=== PATIENT | male | born 1965 | race Caucasian/White ===

== ENCOUNTER 2017-06-05 10:06 | Inpatient (IN) | payer MEDICAID ==
[~2017-06-05] VITALS: Ht 162.6 cm; Wt 49.9 kg
[2017-06-05] MEDS ORDERED: DEXT 5% /NACL 0.9% 1,000 ML IV SCH ×2 (10:25→13:50)
[2017-06-05] MEDS ORDERED: MORPHINE SULFATE 2 MG/ML SYR IVP PRN ×2 (10:25→13:50)
[2017-06-05] MEDS ORDERED: MORPHINE SULFATE 4 MG/ML SYR IVP PRN (10:25)
[2017-06-05] MEDS ORDERED: ONDANSETRON 4 MG/2 ML VIAL IVP PRN ×2 (10:25→13:50)
--- NOTE | 2017-06-05 13:30 | NUR ---
PATIENT ARRIVED ON UNIT. PATIENT IS AAOX4 AND SHOWS NO S/S OF ACUTE DISTRESS ON ROOM AIR. PATIENT DENIES PAIN, NOTED SUPRAPUBIC TUBE DRAINING CLOUDY STRAW YELLOW URINE, PRESSURE ULCER AT RIGHT BUTTOCK, BILATERAL FEET WITH 2+ PITTING EDEMA. PATIENT WAS A DIRECT ADMIT, HX WAS TAKEN FROM PATIENT. PATIENT WAS EXPLAINED POC FOR TODAY AND HE VERBALIZED UNDERSTANDING. BED IN LOW POSITION WITH CALL LIGHT WITHIN REACH.
[2017-06-05] MEDS ORDERED: OMEP20TC10 PO (14:29)
[2017-06-05] MEDS ORDERED: ASCO500T45 PO (14:29)
[2017-06-05] MEDS ORDERED: TRAZ-286 PO (14:29)
[2017-06-05] MEDS ORDERED: FISH10005 PO (14:29)
[2017-06-05] MEDS ORDERED: ACET-8386 PO (14:29)
[2017-06-05] MEDS ORDERED: LACT10SO1 PO (14:29)
[2017-06-05] MEDS ORDERED: TRAM50TA1 PO (14:29)
[2017-06-05] MEDS ORDERED: ONDA4TAB PO (14:29)
[2017-06-05] MEDS ORDERED: ALBU0.0912 IH (14:29)
[2017-06-05] MEDS ORDERED: ZINC220C12 PO (14:29)
[2017-06-05 14:51] VITALS: BP 132/96
[2017-06-05] MEDS ORDERED: BOWEL EVACUANT DRINK 4,000 ML PDS PO SCH (15:00)
[2017-06-05] MEDS ORDERED: HYDROcodone/APAP 5/325 MG 1 TAB TAB PO PRN (15:05)
[2017-06-05] MEDS ORDERED: ALBUTEROL HFA MDI 90 MCG/ACTUATION 8 GM INH PRN (15:05)
[2017-06-05] MEDS ORDERED: traMADol 50 MG TAB PO PRN (15:05)
[2017-06-05] MEDS ORDERED: ALBUTEROL 0.083% 2.5 MG/3 ML NEBU INH PRN (15:20)
--- NOTE | 2017-06-05 16:00 | NUR ---
ADMINISTERED SCHEDULED MEDICATIONS. YISEL ATTEMPTED NEW IV ON THE LEFT FOREARM SUCCESSFULLY. IV SL. ALL NEEDS MET AT THIS TIME. BED IN LOW POSITION WITH CALL LIGHT WITHIN REACH.
[2017-06-05] MEDS ORDERED: NON-FORMULARY ITEM (Omeprazole 40 MG) PO SCH (16:30)
--- NOTE | 2017-06-05 17:33 | NUR ---
PATIENT C/O NAUSEA, ADMINISTERED ZOFRAN 4 MG IVP. PATIENTS NEEDS MET AT THIS TIME.
--- NOTE | 2017-06-05 19:30 | NUR ---
GAVE REPORT AT BEDSIDE TO NIGHT NURSE. PATIENT ENDORSED IN STABLE CONDITION.
--- NOTE | 2017-06-05 19:40 | NUR ---
RECEIVED REPORT FROM AM NURSE. PT RESTING IN BED, AOX4, BEDBOUND, ABLE TO VERBALIZE NEEDS. PT C/O NAUSEA AND ABD DISCOMFORT FROM DRINKING GO-LYTELY, ZOFRAN IVP PRN IS NOT DUE YET, WILL NOTIFY . PT ENCOURAGED TO DRINK GO-LYTELY TOLERATED, PT VERBALIZED UNDERSTANDING. PT HAS SACRAL WOUND, DRESSING CLEAN DRY AND INTACT. SUPRAPUBIC CATH DRAINING STRAW YELLOW CLOUDY URINE WITH SEDIMENTS. BLE PITTING EDEMA NOTED. IV ACCESS ASYMPTOMATIC, PATENT AND INTACT. IVF INFUSING WELL. DISCUSSED AND REVIEWED PLAN OF CARE WITH PT, PT VERBALIZED UNDERSTANDING. ALL NEEDS MET. SAFETY MEASURES ENSURED. CALL LIGHT WITHIN REACH. Addendum: 06/06/17 at 0131 by Javon Dominique RN R BUTTOCKS WOUND
[2017-06-05 20:00] VITALS: BP 114/87
[2017-06-05] MEDS: ONDANSETRON 4 MG/2 ML VIAL IVP PRN (20:14)
--- NOTE | 2017-06-05 20:15 | NUR ---
CALLED DR HESS, DISCUSSED PT DX SCREENING FOR MALIGNANT NEOP-COLON, PT CURRENTLY SNF IN [facility], C/O NAUSEA DESPITE ZOFRAN IVP Q6H PRN 2HRS AGO, REPORTED THAT PT HAD 1 LARGE SOLID BM AT THIS TIME. ORDERS RECEIVED TO CHANGE TO ZOFRAN IVP 4MG PRN Q4H TO START NOW. PT REPORTS SLIGHT RELIEF AFTER BM AND EMESIS. ADMINISTERED ZOFRAN IVP PRN ORDERED WITH EDUCATION. ADMINISTERED REMAINING DUE MED WITH EDUCATION. PT VERBALIZED UNDERSTANDING, TOLERATED MEDS WELL. ALL NEEDS MET. SAFETY MEASURES ENSURED. CALL LIGHT WITHIN REACH. WILL CONTINUE TO MONITOR.
[2017-06-05] MEDS ORDERED: traZODone 50 MG TAB PO SCH (21:00)
--- NOTE | 2017-06-05 21:45 | NUR ---
PT HAD COPIOUS AMOUNTS OF BROWN LIQUID STOOL, BEDLINENS CHANGED. PT CLEANED, TURNED AND REPOSITIONED, OFFLOADED PRESSURE AREAS WITH MONOMER PURIFICATION OPERATOR. PT ENCOURAGED TO DRINK MORE GO-LYTELY, PT C/O NAUSEA BUT ABLE TO TOLERATE SLOWLY, WILL MONITOR AND CONTINUE TO ENCOURAGE PT. ALL NEEDS MET. IVF INFUSING WELL. SAFETY MEASURES ENSURED. CALL LIGHT WITHIN REACH.
[2017-06-06] VITALS: BP 129/73
[2017-06-06] MEDS: ONDANSETRON 4 MG/2 ML VIAL IVP PRN (00:15)
--- NOTE | 2017-06-06 00:15 | NUR ---
PT ABLE TO FINISH GO-LYTELY BEFORE MIDNIGHT. PT C/O ABD PAIN AND DISCOMFORT, SEE PAIN ASSESSMENT, ADMINISTERED NORCO PO PRN WITH EDUCATION. PT C/O NAUSEA, ADMINISTERED ZOFRAN IVP PRN WITH EDUCATION. PT VERBALIZED UNDERSTANDING. PT HAD COPIOUS AMOUNT OF LIQUID STOOL. BEDLINENS CHANGED, PT CLEANED, TURNED AND REPOSITIONED WITH EXTRACTOR PLANT OPERATOR, PT TOLERATED WELL. ALL NEEDS MET. SAFETY MEASURES ENSURED. CALL LIGHT WITHIN REACH. WILL CONTINUE TO MONITOR.
--- NOTE | 2017-06-06 04:00 | NUR ---
PT SLEEPING COMFORTABLY, NO S/S OF ACUTE DISTRESS. ALL NEEDS MET. SAFETY MEASURES ENSURED. CALL LIGHT WITHIN REACH.
[2017-06-06] MEDS ORDERED: SODIUM PHOSPHATE 118 ML ENEM RC SCH (06:00)
--- NOTE | 2017-06-06 06:02 | NUR ---
PT HAD COPIOUS AMOUNT OF BM, PT CLEANED, TURNED AND REPOSITIONED BY CNAs. ADMINISTERED DUE MED FLEET ENEMA AT THIS TIME. HELD DUE MED PROTONIX PO DUE TO PT NPO. PT TOLERATED WELL. ALL NEEDS MET. SAFETY MEASURES ENSURED. CALL LIGHT WITHIN REACH.
[2017-06-06] MEDS ORDERED: NON-FORMULARY ITEM (Omeprazole 40 MG) PO SCH (06:30)
[2017-06-06] MEDS ORDERED: PANTOPRAZOLE 40 MG TABEC PO SCH ×2 (06:30→09:00)
[2017-06-06] MEDS ORDERED: MIDAZOLAM 2 MG/2 ML VIAL ONE (07:09)
[2017-06-06] MEDS ORDERED: LIDOCAINE 2% 100 MG/5 ML UJET TP ONE (07:09)
[2017-06-06] MEDS ORDERED: fentaNYL 0.05 MG/ML VIAL ONE (07:09)
--- NOTE | 2017-06-06 07:15 | NUR ---
ENDORSED PLAN OF CARE TO AM NURSE. CONDITION STABLE.
--- NOTE | 2017-06-06 07:16 | NUR ---
RECEIVED REPORT FROM THE NIGHT NURSE. PT IS ASLEEP. PT HAD BOWEL CLEANSING PREP ALL LAST NIGHT AND MORNING. PT TO HAVE COLONOSCOPY THIS MORNING AT 0730. BM CLEAR. WILL LET HIM SLEEP UNTIL OR NURSES GET HERE.
--- NOTE | 2017-06-06 07:27 | NUR ---
2 O/R NURSES, ELIER AND JOSE L ARE HERE TO TAKE PT FOR COLONOSCOPY. PT IS STILL SLEEPING. PER NANOTECHNOLOGY ENGINEERING TECHNOLOGIST NURSE PT'S BM IS CLEAR. WILL AWAIT HIS RETURN.
--- NOTE | 2017-06-06 07:41 | NUR ---
PT OFF UNIT
[2017-06-06 08:00] VITALS: BP 118/79
[2017-06-06] MEDS ORDERED: LACTULOSE 20 GM/30 ML UDC PO SCH (09:00)
[2017-06-06] MEDS ORDERED: FISH OIL PO SCH (09:00)
[2017-06-06] MEDS ORDERED: FATTY ACIDS PO SCH (09:00)
[2017-06-06] MEDS ORDERED: ZINC SULF 220 MG CAP PO SCH (09:00)
[2017-06-06] MEDS ORDERED: ASCORBIC ACID 500 MG TAB PO SCH (09:00)
[2017-06-06] MEDS ORDERED: OMEGA PO SCH (09:00)
[2017-06-06] MEDS ORDERED: NON-FORMULARY ITEM (Lactulose 30 ML) PO SCH (09:00)
--- NOTE | 2017-06-06 09:00 | NUR ---
WOUND CONSULT DONE ON THIS OUTPATIENT 51 Y/O MALE, NO H&P AVAILABLE. PT IS AAX4, VERBALIZES NEEDS AND PT. ABLE TO TURN AND REPOSITION WITH ASSISTANCE OF ONE PERSON TO POSITIONING THE BLE. PT. HAS SUPRA PUBIC CATH. PATENT WITH MODERATE AMOUNT OF YELLOW URINE OUTPUT IN BSD BAG. MULTIPLE OLD HEALED SURGICAL SCARS TO BLE, ABDOMEN AND SPINAL AREAS. INITIAL PLAN OF CARE DISCUSSED WITH PRIMARY RN AND PT. PT VERBALIZES UNDERSTAND. INTEGUMENTARY: 1. RIGHT LOWER BUTTOCK 3X2X0.1 CM MOISTURE ASSOCIATE DERMATITIS(MAD) 2. SACRAL COCCYX BLANCHABLE REDNESS 3. LEFT AND RIGHT FEET DRY FLAKY SKIN RECOMMENDATION: 1. CLEANSE RIGHT LOWER BUTTOCK MAD WITH SOAP AND WATER, PAT DRY, APPLY Z-GUARD BID AND PRN IF SOILING 2. APPLY SKIN LOTION TO FEET DRYNESS AREA WITH BODY LOTION BID 3. TURN AND REPOSITION Q2H AND OFFLOAD SACRALCOCCYX AREA 4. KEEP SKIN DRY AND CLEAN AT ALL TIMES ABOVE RECOMMENDATIONS NOTIFY PRIMARY RN NO NEED FOR FOLLOW UP. PLEASE CONTACT WOUND CARE NURSE FOR ANY QUESTION.
--- NOTE | 2017-06-06 09:20 | NUR ---
PATIENT HAS BEEN SCREENED AND CATEGORIZED MODERATE NUTRITION RISK. PATIENT WILL BE SEEN WITHIN 3-5 DAYS OF ADMISSION. 06/07/17-06/09/[address]
--- NOTE | 2017-06-06 09:25 | NUR ---
ADMINISTERED MORNING MEDS. TOLERATED THEM WELL. LATE TRAY HERE. ONCE DONE WITH BREAKFAST AND TRANSPORT ARRANGED, HE CAN BE D/C BACK TO HIS HOME.
--- NOTE | 2017-06-06 10:58 | NUR ---
CALLED ACCESS AND ARRANGED TRANSPORTATION FOR PT FOR APPROX 1230. PT IS ALREADY DRESSED AND READY TO GO. WILL START D/C PROCESS.
--- NOTE | 2017-06-06 12:00 | NUR ---
GAVE D/C INSTRUCTIONS TO PT. PT VERBALIZED UNDERSTANDING. REMOVED IV, CANNULA INTACT AND NO BLEEDING NOTED. REMOVED ID BANDS. ALL PERSONAL BELONGINGS AT BEDSIDE. READY TO GO. JUST WAITING ON TRANSPORTATION. PER PT'S REQUEST, MOVED PT FROM BED TO CHAIR. PT TOLERATED WELL.
--- NOTE | 2017-06-06 12:24 | NUR ---
SAT PT IN HIS WHEELCHAIR, LUNCH TABLE IN FRONT. WAITING ON ACCESS RIDE. WILL CONTINUE TO MONITOR PT.
--- NOTE | 2017-06-06 12:30 | NUR ---
WALKED PT OUT TO THE ACCESS TRANSPORTATION. PT IN STABLE CONDITION. ALL PERSONAL BELONGINGS WITH PT.
--- NOTE | 2017-06-06 13:52 | NUR ---
CM NOTE PER SEWER REPAIRER CHUY, SEND REVIEWS TO [facility] FAX# [phone] AND TO [facility]. PER FAITH OF [facility] PH# [phone], THERE IS NO COUTURE ALTERATIONS DRESSMAKER ASSIGNED TO THE PATIENT YET BUT TO SEND REVIEWS TO [facility] FAX# [phone] REF# [id number]. INITIAL REVIEW FAXED TO [facility] [phone] PH# [phone] AND TO [facility] [phone] JEANCARL[facility] STARK PH# [phone].
== END 2017-06-06 12:30 | disposition home or self-care (01) | DRG 244 ==
LOC: UNDOADMIN 10:06 → MTU 10:06 → EDSTATUS 06-08 09:35
PROVIDERS: ADMIT Internal Medicine Gastroenterology; ATTEND Internal Medicine Gastroenterology
PROC: 0DJD8ZZ Inspection of Lower Intestinal Tract, Via Natural or Artificial Opening Endoscopic (ICD-10-PCS; principal; 2017-06-06 07:30)
DX: K57.30 Diverticulosis of large intestine without perforation or abscess without bleeding (principal); G80.9 Cerebral palsy, unspecified; K59.00 Constipation, unspecified
CPT/HCPCS: 87081; 93005; J2250; J2405; J3010; J7042

== ENCOUNTER 2018-03-25 21:18 | Inpatient (IN) | payer MEDICAID ==
[~2018-03-25] VITALS: Ht 162.6 cm; Wt 59.0 kg
[~2018-03-25 21:18] MED LIST: ACET-8386 PO; ALBU0.0912 IH; ASCO500T45 PO; FISH10005 PO; LACT10SO1 PO; OMEP20TC10 PO; ONDA4TAB PO; TRAM50TA1 PO; TRAZ-370 PO; ZINC220C12 PO
[2018-03-25 21:21] VITALS: BP 138/78
--- NOTE | 2018-03-25 21:41 | NUR ---
PT PAULO BLS. TAKEN TO BED 10
--- NOTE | 2018-03-25 21:45 | NUR ---
ER AT BEDSIDE
--- NOTE | 2018-03-25 21:45 | NUR ---
52/M BIBA FROM PT'S ASSISTED LIVING ARRANGED WITH A CAREGIVER. PER EMS, PT HAD BRIGHT RED STOOL FROM DIAPER. PT AOX4, GCS 15, BEDBOUND, RR EVEN AND UNLABORED. LUNG SOUNDS CLEAR BL. BS ACTIVE X4, ABD FIRM ROUND TENDER ON EPIGASTRIC AREA. PRESSURE ULCER NOTED ON R BUTTOCKS, SKIN TEAR NOTED ON L BUTTOCKS WITH MILD BRIGHT RED BLEEDING, OPEN WOUNDS NOTED ON PENIS AND SCROTUM WITH MILD BRIGHT RED BLEEDING. HX CEREBRAL PALSY, GASTRIC ULCER
[2018-03-25] MEDS ORDERED: NACL 0.9% 1,000 ML IV SCH (21:49)
[2018-03-25] MEDS ORDERED: FAMOTIDINE 20 MG/2 ML VIAL IVP ONE (21:50)
[2018-03-25] MEDS ORDERED: ONDANSETRON 4 MG/2 ML VIAL IVP ONE (21:50)
[2018-03-25 22:16] LABS: BASOPHILS # (AUTO) 0.1 K/uL (0.00-0.22); BASOPHILS % (AUTO) 1.2 % (0.0-2.0); EOSINOPHILS # (AUTO) 0.4 K/uL (0-0.4); EOSINOPHILS % (AUTO) 5.4 % (0.0-4.0); HEMATOCRIT 34.7 % (36-52); LYMPHOCYTES # (AUTO) 1.1 K/uL (2.0-11.5); LYMPHOCYTES % (AUTO) 13.6 % (20.5-51.1); MEAN CORPUSCULAR HEMOGLOBIN 29 pg (27-31); MEAN CORPUSCULAR HGB CONC 32 g/dL (33-37); MEAN CORPUSCULAR VOLUME 91.9 fL (80-94); MONOCYTES # (AUTO) 0.4 K/uL (0.8-1.0); MONOCYTES % (AUTO) 4.9 % (1.7-9.3); NEUTROPHILS # (AUTO) 6.1 K/uL (1.8-7.7); NEUTROPHILS % (AUTO) 74.9 % (42.2-75.2); PLATELET COUNT (AUTO) 366 K/uL (140-450); RED BLOOD CELL COUNT(AUTO) 3.78 MIL/uL (4.20-6.10); RED CELL DISTRIBUTION WIDTH 19.7 % (11.6-13.7); WHITE BLOOD COUNT (AUTO) 8.2 K/uL (4.8-10.8)
[2018-03-25 22:24] LABS: ANION GAP 14.1 (8-16); CARBON DIOXIDE 25.2 mmol/L (21-32); CREATININE 1.3 mg/dL (0.7-1.3); POTASSIUM 3.3 mmol/L (3.5-5.1)
[2018-03-25 22:31] LABS: ALBUMIN 3.5 g/dL (3.4-5.0); TOTAL BILIRUBIN 0.3 mg/dL (0.0-1.0)
[2018-03-25 22:44] LABS: APPEARANCE,URINE CLOUDY (CLEAR); COLOR,URINE YELLOW (YELLOW)
[2018-03-25 22:45] LABS: BILIRUBIN,URINE NEGATIVE (NEGATIVE); BLOOD, URINE 2+ (NEGATIVE); PH,URINE 7.5 (5.0-9.0); UGLUCOSE NEGATIVE (NEGATIVE)
[2018-03-25 22:46] LABS: LEUKOCYTE ESTERASE ,URINE 3+ (NEGATIVE); NITRITE, URINE POSITIVE (NEGATIVE)
[2018-03-25] MEDS ORDERED: cefTRIAXone 2,000 MG in DEXTROSE 5% 100 ML IV ONE (22:50)
[2018-03-25 23:01] LABS: RBC,URINE 11-20 (MOD) /HPF (0-5)
[2018-03-25 23:02] LABS: WBC,URINE TOO MANY TO COUNT /HPF (0-5)
[2018-03-25] MEDS ORDERED: cefTRIAXone 2,000 MG VIAL ONE (23:26)
[2018-03-25] MEDS ORDERED: VANCOMYCIN 1,000 MG in DEXTROSE 5% 250 ML IV ONE (23:50)
--- NOTE | 2018-03-26 | NUR ---
Patient appears to be resting comfortably in bed. Vital Signs within normal limits. Respirations even and unlabored.
[2018-03-26] MEDS ORDERED: VANCOMYCIN 1,000 MG VIAL ONE (00:15)
[2018-03-26] MEDS ORDERED: ONDANSETRON 4 MG/2 ML VIAL IVP ONE (02:15)
[2018-03-26] MEDS ORDERED: MORPHINE SULFATE 2 MG/ML SYR IVP ONE (02:15)
[2018-03-26] MEDS ORDERED: MORPHINE SULFATE 4 MG/ML SYR ONE (02:24)
--- NOTE | 2018-03-26 03:27 | NUR ---
ADMITTED PT FROM ER VIA [facility]. AAOX4. NO C/O PAIN OR SOB. PT IS BEDBOUND. IV TO LEFT WRIST #22G, SALINE LOCK. PT HAS SUPRAPUBIC CATH DRAINING CLEAR YELLOW URINE. PT HAS PRESSURE ULCERS TO LEFT AND RIGHT BUTTOCKS AND SCROTUM. ORIENTED PT TO ROOM. DISCUSSED PLAN OF CARE, PT VERBALIZED UNDERSTANDING. SAFETY PRECAUTION IN PLACE. CALL LIGHT WITHIN REACH.
[2018-03-26 03:30] VITALS: BP 99/63
--- NOTE | 2018-03-26 03:30 | NUR ---
Patient will be admitted to care of DR. MARES. Admited to MS. Will go to room 123A. Belongings list completed. Report to ANAM MOREL.
[2018-03-26] MEDS ORDERED: ACETAMINOPHEN 325 MG TAB PO PRN (04:50)
[2018-03-26] MEDS ORDERED: ALBUTEROL HFA MDI 90 MCG/ACTUATION 8 GM INH PRN (04:50)
[2018-03-26] MEDS ORDERED: LORazepam 2 MG/ML VIAL IVP PRN (04:50)
[2018-03-26] MEDS ORDERED: ONDANSETRON 4 MG TAB PO PRN (04:50)
--- NOTE | 2018-03-26 05:40 | NUR ---
PT SLEEPING BUT EASILY AROUSABLE. NO S/S OF PAIN OR SOB. SAFETY PRECAUTION IN PLACE.
--- NOTE | 2018-03-26 07:25 | NUR ---
ENDORSED PT TO DAY SHIFT NURSE. PT IN STABLE CONDITION.
[2018-03-26 08:00] VITALS: BP 102/70
--- NOTE | 2018-03-26 08:20 | NUR ---
PATIENT HAS BEEN SCREENED AND CATEGORIZED HIGH NUTRITION RISK. PATIENT WILL BE SEEN WITHIN 1-2 DAYS OF ADMISSION. 03/26/18-03/27/[address]
--- NOTE | 2018-03-26 08:26 | NUR ---
PATIENT WAS AWAKE, ALERT. RESPIRATION EVEN, UNLABOR ON ROOM AIR. SKIN DRY AND WARM. IV PATENT AND INTACT. COMPLAINED OF LEG PAIN AND ABDOMINAL PAIN 5/10 AT THIS TIME, WILL MEDICATE PER ORDER. PLAN OF CARE WAS DISCUSSED WITH PATIENT. BED AT LOW POSITION, SIDE RAILS UP. CALL LIGHT WITHIN REACH Addendum: 03/26/18 at 0827 by Monalisa De Jesus RN SUPRAPUBIC CATHETER DRAINING CLEAR YELLOW URINE.
[2018-03-26] MEDS: ASCORBIC ACID 500 MG TAB PO SCH (08:44)
[2018-03-26] MEDS: ZINC SULF 220 MG CAP PO SCH (08:44)
[2018-03-26] MEDS: traMADol 50 MG TAB PO PRN ×2 (08:44→23:08)
[2018-03-26] MEDS ORDERED: FISH OIL PO SCH (09:00)
[2018-03-26] MEDS ORDERED: LACTULOSE 20 GM/30 ML UDC PO SCH (09:00)
[2018-03-26] MEDS ORDERED: FATTY ACIDS PO SCH (09:00)
[2018-03-26] MEDS ORDERED: OMEGA PO SCH (09:00)
--- NOTE | 2018-03-26 10:35 | NUR ---
PATIENT AWAKE, ALERT. RESPIRATION EVEN, UNLABOR ON ROOM AIR. NO DISTRESS NOTED AT THIS TIME. CALL LIGHT WITHIN REACH
--- NOTE | 2018-03-26 11:10 | NUR ---
WOUND CARE EVALUATION NOTE: REASON FOR EVALUATION: MULTIPLE WOUNDS SKIN ASSESSMENT DONE WITH PRIMARY RN AT 11:00 AM WITH THIS 52 Y/O MALE PT ADMITTED TO [facility] WITH INITIAL DX OF RECTAL BLEEDING. PT. ADMITTED WITH PRESSURE INJURY. PAST MEDICAL HX INCLUDES CEREBRAL PALSY AND ASTHMA. ALL ABOVE INFORMATION OBTAINED FROM ADMISSION H&P. LABS ARE WBC 8.2, H/H 11.0/34.1, GLUCOSE 95 AND ALBUMIN 3.5. PT IS AWAKE. SKIN IS WARM AND DRY, MULTIPLE SURGICAL OLD HEALED SCARS TO HIPS AND KNEES. SUPRAPUBIC CATHETER IN PLACE WITH MODERATE AMOUNT YELLOW URINE OBSERVED. 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 UNABLE TO ASSESS CAPILLARY REFILLED DUE TO FUNGAL NAILS. ABDOMINAL DISTENTION, PLAN OF CARE DISCUSSED WITH PRIMARY RN AND PT. PT. VERBALIZING UNDERSTANDING. CLARIFICATION NO PRESSURE INJURY TO SCROTUM AREA. INTEGUMENTARY: -SUPRAPUBIC OSTOMY SADA-SKIN DRY AND CLEAN -RIGHT ISCHIUM PRESSURE INJURY STAGE 2, 3X2X0.1 CM, WOUND BED IS PINK. MOIST, NO ODOR, SADA-WOUND SKIN DENUDED AND REDNESS - PRESSURE INJURY STAGE 2 TO LEFT ISCHIUM 3X2X0.1 CM, SADA-WOUND SKIN DENUDED IRREGULAR SHAPE MERGED WITH PERIANAL IAD, WOUND BED RED AND MOIST,NO ODOR -INCONTINENT ASSOCIATE DERMATITIS (IAD) REDNESS AND MULTIPLE EROSIONS TO: GROINS, PENIS, ANTERIOR AND POSTERIOR SCROTUM EXTENDED TO PERIANAL - FUNGAL DERMATITIS TO TOE NAILS AND (TOES) INTERSPACES RECOMMENDATIONS: -CLEANSE LEFT AND RIGHT ISCHIUM PRESSURE INJURIES WITH WOUND CARE SOLUTIONS, PAT DRY, APPLY Z-GUARD AND COVER WITH DRY DRESSING CHANGE QD AND PRN IF SOILING. -APPLY ANTI-FUNGAL CREAM TO: GROINS, PENIS, ANTERIOR AND POSTERIOR SCROTUM EXTENDED TO PERIANAL BID AND PRN IF SOILING -APPLY ANTI-FUNGAL CREAM TO- FUNGAL DERMATITIS: TOE NAILS AND (TOES) INTERSPACES -KEEP SKIN DRY AND CLEAN AT ALL TIMES, PLEASE CHECK Q2H AND PRN FOR INCONTINENCY OF BOWEL -OFFLOAD BILATERAL HEELS BY PLACING PILLOWS UNDER CALVES UNLESS OTHERWISE CONTRAINDICATED -PRESSURE REDISTRIBUTION SURFACE THERAPY -TURN AND REPOSITION Q2H, OFFLOAD SACRALCOCCYX BY TURNING RIGHT AND LEFT -CONTINUE TO FOLLOW RD RECOMMENDATIONS ALL ABOVE RECOMMENDATIONS DISCUSSED WITH PRIMARY RN PLEASE CONTACT WOUND CARE NURSE FOR ANY QUESTION AND CHANGE OF WOUND CONDITION.
[2018-03-26] MEDS ORDERED: ALBUTEROL 0.083% 2.5 MG/3 ML NEBU INH PRN (11:30)
--- NOTE | 2018-03-26 12:23 | NUR ---
PATIENT WAS SLEEPING COMFORTABLY. RESPIRATION EVEN, UNLABOR ON ROOM AIR. NO DISTRESS NOTED AT THIS TIME. MD WAS AT BEDSIDE. CALL LIGHT WITHIN REACH
[2018-03-26] MEDS ORDERED: POTASSIUM CHLORIDE 10 MEQ TABER PO SCH (13:00)
[2018-03-26] MEDS ORDERED: Z-GUARD PASTE TP SCH (13:00)
[2018-03-26] MEDS: MILD SOAP AND WATER TP SCH (13:18)
[2018-03-26] MEDS: Z-GUARD PASTE TP SCH (13:18)
--- NOTE | 2018-03-26 14:00 | NUR ---
PATIENT WAS SLEEPING COMFORTABLY. RESPIRATION EVEN, UNLABOR ON ROOM AIR. NO DISTRESS NOTED AT THIS TIME. CALL LIGHT WITHIN REACH
--- NOTE | 2018-03-26 15:31 | NUR ---
03/26/18 RD INITIAL ASSESSMENT COMPLETED PLEASE REFER TO NUTRITION ASSESSMENT UNDER CARE ACTIVITY FOR ESTIMATED NUTRITIONAL NEEDS. 1. RECOMMEND REGULAR DIET TOLERATED 2. RECOMMEND KENNEDY QD 3. RD TO FOLLOW-UP 3-5 DAYS, MODERATE RISK TINY MEHTA RD
[2018-03-26 16:00] VITALS: BP 107/75
--- NOTE | 2018-03-26 16:00 | NUR ---
PATIENT WAS SLEEPING COMFORTABLY. RESPIRATION EVEN, UNLABOR ON ROOM AIR. NO DISTRESS NOTED AT THIS TIME. CALL LIGHT WITHIN REACH
--- NOTE | 2018-03-26 18:21 | NUR ---
PATIENT WAS SLEEPING COMFORTABLY. RESPIRATION EVEN, UNLABOR ON ROOM AIR. IV PATENT AND INTACT. NO DISTRESS NOTED A THIS TIME.
--- NOTE | 2018-03-26 18:57 | NUR ---
DR. FREEMAN WAS PAGED AND LEFT MESSAGE FOR CONSULT REQUEST. DR. RAMIREZ WAS CALLED, ORDERS WERE RECEIVED. DR. DUEÑAS AND DR. HAYNES WERE MADE AWARE OF CONSULT REQUEST.
--- NOTE | 2018-03-26 19:24 | NUR ---
RECEIVED REPORT FROM DAY SHIFT NURSE, STEPHANE, AT PT BEDSIDE. PT IN STABLE CONDITION. PT IS AAOX4. PT IS ON RA. IV ACCESS IN L WRIST 22G SALINE LOCKED. IV IS PATENT AND INTACT. PT HAS PU TO R AND L ISCHIUM, IAD TO GROIN AND PERIANAL AREA, AND FUNGAL DERMATITIS TO TOES. SUPRAPUBIC CATHETER IN PLACE DRAINING PALE YELLOW URINE. PT ABDOMEN IS DISTENDED. NO C/O PAIN AT THIS TIME. BED IS LOCKED, LOW POSITION WITH SIDE RAILS UP X2. BOARD UPDATED. CALL LIGHT IS WITHIN REACH. WILL CONTINUE TO MONITOR PT.
--- NOTE | 2018-03-26 19:24 | NUR ---
ENDORSEMENT GIVEN TO THE SENIOR INSTRUMENTATION ENGINEER NURSE. PATIENT IS STABLE AT THIS TIME
[2018-03-26] MEDS: LACTULOSE 20 GM/30 ML UDC PO SCH (20:24)
[2018-03-26] MEDS: traZODone 50 MG TAB PO SCH (20:26)
[2018-03-26] MEDS: ANTIFUNGAL CLEAR OINTMENT TP SCH (20:28)
[2018-03-26] MEDS: SODIUM PHOSPHATE 118 ML ENEM RC SCH ×2 (20:29→21:40)
--- NOTE | 2018-03-26 20:29 | NUR ---
ADMINISTERED SCHEDULED MEDICATION. ANTIFUNGAL CREAM APPLIED TO TOES AND BUTTOCK AND PERIANAL AREA. PT TOLERATED WELL. NO SIGNS OR SYMPTOMS OF DISTRESS. WILL CONTINUE TO MONITOR.
--- NOTE | 2018-03-26 20:57 | NUR ---
DR. FREEMAN AT BEDSIDE SPEAKING WITH PT.
[2018-03-26] MEDS ORDERED: MAGNESIUM CITRATE 300 ML BTL PO SCH (21:00)
--- NOTE | 2018-03-26 21:02 | NUR ---
XRAY TECHS AT PT BEDSIDE.
--- NOTE | 2018-03-26 21:40 | NUR ---
FLEET ENEMA ADMINISTERED. PT TOLERATED WELL. WILL CONTINUE TO MONITOR.
--- NOTE | 2018-03-26 23:08 | NUR ---
PT C/O PAIN AND DISCOMFORT IN ABDOMEN. TRAMADOL GIVEN. PT TOLERATED WELL. ALL OTHER NEEDS ARE MET AT THIS TIME. WILL CONTINUE TO MONITOR.
[2018-03-27] VITALS: BP 127/81
[2018-03-27] MEDS ORDERED: PIPERACILLIN/TAZOBACTAM 2.25 GM VIAL IV ONE (00:10)
[2018-03-27] MEDS ORDERED: PIPERACILLIN/TAZOBACTAM 3.375 GM VIAL IV ONE ×2 (00:11→05:57)
[2018-03-27] MEDS: PIPER/TAZO 3.375GM/D5W PREMIX 50 ML IV SCH ×5 (00:15→23:02)
[2018-03-27] MEDS: MILD SOAP AND WATER TP SCH ×2 (00:15→12:20)
--- NOTE | 2018-03-27 00:15 | NUR ---
SCHEDULED ANTIBIOTIC INFUSING. PT IS SLEEPING IN BED. NO SIGNS OR SYMPTOMS OF DISTRESS. WILL CONTINUE TO MONITOR.
--- NOTE | 2018-03-27 02:53 | NUR ---
PT ASLEEP IN BED. NO SIGNS OR SYMPTOMS OF DISTRESS. WILL CONTINUE TO MONITOR.
[2018-03-27] MEDS: PANTOPRAZOLE 40 MG TABEC PO SCH (05:58)
--- NOTE | 2018-03-27 05:59 | NUR ---
ADMINISTERED SCHEDULED MEDICATIONS. PT TOLERATED WELL. ALL OTHER NEEDS ARE MET AT THIS TIME. WILL CONTINUE TO MONITOR.
[2018-03-27] MEDS: traMADol 50 MG TAB PO PRN ×3 (06:42→20:15)
--- NOTE | 2018-03-27 06:42 | NUR ---
PT C/O PAIN. TRAMADOL GIVEN. PT TOLERATED WELL. ALL OTHER NEEDS ARE MET AT THIS TIME. WILL CONTINUE TO MONITOR.
--- NOTE | 2018-03-27 07:15 | NUR ---
ENDORSED PT TO DAY SHIFT NURSE MANDY FOR CONTINUITY OF CARE. PT IN STABLE CONDITION.
--- NOTE | 2018-03-27 07:20 | NUR ---
RECEIVED PT FROM COLLEGE TUTOR NURSEGERTRUDE, PT IS AWAKE AND SEATED ON THE BED WITH SIDE RAILS UP AND CALL LIGHT WITHIN REACH, PT HAS A PERRY CATHETER IN PLACE AND AND IV LINE ON THE LEFT WRIST G.22 WITH NS AT 10ML/HR, INTACT. PT HAYDEN PAIN AT THIS TIME, NO SOB AND NO SIGN OF DISTRESS NOTED. WILL CONTINUE TO MONITOR PT.
[2018-03-27 07:30] LABS: BASOPHILS # (AUTO) 0.1 K/uL (0.00-0.22); BASOPHILS % (AUTO) 1.2 % (0.0-2.0); EOSINOPHILS # (AUTO) 0.8 K/uL (0-0.4); EOSINOPHILS % (AUTO) 10.3 % (0.0-4.0); HEMOGLOBIN 10.2 g/dL (12.0-18.0); LYMPHOCYTES # (AUTO) 1.4 K/uL (2.0-11.5); LYMPHOCYTES % (AUTO) 18.9 % (20.5-51.1); MEAN CORPUSCULAR HEMOGLOBIN 29 pg (27-31); MEAN CORPUSCULAR HGB CONC 32 g/dL (33-37); MEAN CORPUSCULAR VOLUME 92.7 fL (80-94); MONOCYTES # (AUTO) 0.6 K/uL (0.8-1.0); MONOCYTES % (AUTO) 7.9 % (1.7-9.3); NEUTROPHILS # (AUTO) 4.5 K/uL (1.8-7.7); NEUTROPHILS % (AUTO) 61.7 % (42.2-75.2); PLATELET COUNT (AUTO) 310 K/uL (140-450); RED BLOOD CELL COUNT(AUTO) 3.46 MIL/uL (4.20-6.10); RED CELL DISTRIBUTION WIDTH 19.7 % (11.6-13.7); WHITE BLOOD COUNT (AUTO) 7.3 K/uL (4.8-10.8)
[2018-03-27 07:49] LABS: ANION GAP 9.8 (8-16); CARBON DIOXIDE 28.2 mmol/L (21-32); CREATININE 1.2 mg/dL (0.7-1.3)
[2018-03-27 08:00] VITALS: BP 133/79
[2018-03-27] MEDS: POTASSIUM CHLORIDE 10 MEQ TABER PO SCH (08:42)
[2018-03-27] MEDS: ZINC SULF 220 MG CAP PO SCH (08:43)
[2018-03-27] MEDS: ASCORBIC ACID 500 MG TAB PO SCH (08:43)
[2018-03-27] MEDS: SENNA 8.6 MG TAB PO SCH ×4 (08:44→17:30)
[2018-03-27] MEDS: POLYETHYLENE GLYCOL 17 GM/PKT PO SCH ×3 (08:44→17:31)
[2018-03-27] MEDS: LACTULOSE 20 GM/30 ML UDC PO SCH ×4 (08:46→20:15)
[2018-03-27] MEDS: ANTIFUNGAL CLEAR OINTMENT TP SCH ×2 (08:50→21:19)
--- NOTE | 2018-03-27 09:09 | NUR ---
PT IS AWAKE AND SEATED ON THE BED, WATCHING TV, ORAL MEDICATIONS GIVEN AND PT TOLERATED IT. NO SIGN OF DISTRESS NOTED AND WILL CONTINUE TO MONITOR PT.
[2018-03-27] MEDS: Z-GUARD PASTE TP SCH (12:20)
--- NOTE | 2018-03-27 14:20 | NUR ---
MED WAS GIVEN PER ORDER. PRIMARY NURSE MANDY WAS INFORMED
[2018-03-27] MEDS ORDERED: MAGNESIUM CITRATE 300 ML BTL PO SCH (15:00)
--- NOTE | 2018-03-27 15:21 | NUR ---
PT IS AWAKE AND SEATED ON THE BED WATCHING TV, ORALE MEDICATIONS GIVEN AND PT TOLERATED IT, 0PT VERBALIZED A CRAMPING PAIN ON THE ABDOMEN. WILL CONTINUE TO MONITOR PT.
[2018-03-27 16:00] VITALS: BP 111/76
[2018-03-27] MEDS ORDERED: MINERAL OIL 30 ML UDC PO SCH (16:00)
--- NOTE | 2018-03-27 16:01 | NUR ---
PT REFUSED TO TAKE THE MINERAL OIL AND IS FEELING ANXIOUS. PT HAD A BIG FORMED AND HARD BOWEL. PT WAS ASSISTED TO RELAX AND IS RESTING NOW ON THE BED.
--- NOTE | 2018-03-27 19:25 | NUR ---
RECEIVED REPORT FROM DAY SHIFT NURSE, MANDY, AT PT BEDSIDE. PT IN STABLE CONDITION. PT IS AAOX4. PT IS ON RA. IV ACCESS IN L WRIST 22G SALINE LOCKED. IV IS PATENT AND INTACT. PT HAS PU TO R AND L ISCHIUM, IAD TO GROIN AND PERIANAL AREA, AND FUNGAL DERMATITIS TO TOES. SUPRAPUBIC CATHETER IN PLACE DRAINING PALE YELLOW URINE. PT ABDOMEN IS DISTENDED. PT C/O PAIN IN ABDOMEN AND BUTTOCKS. WILL MEDICATE. BED IS LOCKED, LOW POSITION WITH SIDE RAILS UP X2. BOARD UPDATED. CALL LIGHT IS WITHIN REACH. WILL CONTINUE TO MONITOR PT
--- NOTE | 2018-03-27 19:25 | NUR ---
ENDORSED PT TO PROFESSIONAL NURSE GERTRUDE FOR CONTINUITY OF CARE. PT IS STABLE AT THIS TIME.
[2018-03-27] MEDS: traZODone 50 MG TAB PO SCH (20:14)
--- NOTE | 2018-03-27 20:15 | NUR ---
ADMINISTERED SCHEDULED MEDICATIONS. PT C/O PAIN. TRAMADOL GIVEN. PT TOLERATED WELL. WILL CONTINUE TO MONITOR.
--- NOTE | 2018-03-27 21:15 | NUR ---
PT REPORTS PAIN IS BETTER, 2/10. PT HAD LARGE BM. PT CHANGED, CLEANED AND TURNED. CREAM APPLIED TO BUTTOCKS AND TOES. PT TOLERATED WELL. WILL CONTINUE TO MONITOR.
--- NOTE | 2018-03-27 23:02 | NUR ---
SCHEDULED MEDICATION ADMINISTERED. PT SLEEPING IN BED. NO SIGNS OR SYMPTOMS OF DISTRESS. WILL CONTINUE TO MONITOR.
[2018-03-28] VITALS: BP 113/67
[2018-03-28] MEDS: MILD SOAP AND WATER TP SCH ×2 (01:00→13:00)
--- NOTE | 2018-03-28 01:45 | NUR ---
PT HAD LARGE BM. PT CHANGED, CLEANED AND TURNED. PT TOLERATED WELL. WILL CONTINUE TO MONITOR.
--- NOTE | 2018-03-28 04:00 | NUR ---
PT SLEEPING IN BED. NO SIGNS OR SYMPTOMS OF DISTRESS. WILL CONTINUE TO MONITOR.
[2018-03-28] MEDS: PIPER/TAZO 3.375GM/D5W PREMIX 50 ML IV SCH ×3 (05:30→18:31)
[2018-03-28] MEDS: PANTOPRAZOLE 40 MG TABEC PO SCH (05:30)
--- NOTE | 2018-03-28 05:30 | NUR ---
ADMINISTERED SCHEDULED MEDICATIONS. PT TOLERATED WELL. PT IS RESTING IN BED COMFORTABLY. NO SIGNS OR SYMPTOMS OF DISTRESS. WILL CONTINUE TO MONITOR.
--- NOTE | 2018-03-28 07:20 | NUR ---
RECEIVED BEDSIDE REPORT FROM PM SHIFT NURSE GERTRUDE. PT IN BED AWAKE, VERBALLY RESPONSIVE, NO C/O PAIN/DISCOMFORT. CALL LIGHT WITHIN REACH.
[2018-03-28 07:49] LABS: BASOPHILS # (AUTO) 0.1 K/uL (0.00-0.22); BASOPHILS % (AUTO) 0.8 % (0.0-2.0); EOSINOPHILS # (AUTO) 0.6 K/uL (0-0.4); EOSINOPHILS % (AUTO) 7.7 % (0.0-4.0); HEMATOCRIT 32.8 % (36-52); HEMOGLOBIN 10.4 g/dL (12.0-18.0); LYMPHOCYTES # (AUTO) 0.8 K/uL (2.0-11.5); LYMPHOCYTES % (AUTO) 10.6 % (20.5-51.1); MEAN CORPUSCULAR HEMOGLOBIN 29 pg (27-31); MEAN CORPUSCULAR HGB CONC 32 g/dL (33-37); MEAN CORPUSCULAR VOLUME 91.6 fL (80-94); MONOCYTES # (AUTO) 0.3 K/uL (0.8-1.0); MONOCYTES % (AUTO) 4.4 % (1.7-9.3); NEUTROPHILS # (AUTO) 5.5 K/uL (1.8-7.7); NEUTROPHILS % (AUTO) 76.5 % (42.2-75.2); PLATELET COUNT (AUTO) 301 K/uL (140-450); RED BLOOD CELL COUNT(AUTO) 3.58 MIL/uL (4.20-6.10); WHITE BLOOD COUNT (AUTO) 7.2 K/uL (4.8-10.8)
[2018-03-28 08:00] VITALS: BP 116/74
[2018-03-28 08:01] LABS: ANION GAP 12.8 (8-16); CARBON DIOXIDE 24.8 mmol/L (21-32); CREATININE 1.1 mg/dL (0.7-1.3); POTASSIUM 3.6 mmol/L (3.5-5.1)
[2018-03-28] MEDS: POLYETHYLENE GLYCOL 17 GM/PKT PO SCH ×3 (09:08→16:29)
[2018-03-28] MEDS: LACTULOSE 20 GM/30 ML UDC PO SCH ×4 (09:08→21:00)
[2018-03-28] MEDS: SENNA 8.6 MG TAB PO SCH ×3 (09:09→16:29)
[2018-03-28] MEDS: ASCORBIC ACID 500 MG TAB PO SCH (09:09)
[2018-03-28] MEDS: POTASSIUM CHLORIDE 10 MEQ TABER PO SCH (09:09)
[2018-03-28] MEDS: ZINC SULF 220 MG CAP PO SCH (09:09)
[2018-03-28] MEDS: ANTIFUNGAL CLEAR OINTMENT TP SCH ×2 (09:24→21:10)
--- NOTE | 2018-03-28 11:40 | NUR ---
PT NOTED IV SITE BLEEDING. ASSESSED LEFT WRIST & FOUND IV CANNULA OUT. NO SWELLING OR REDNESS TO SITE, NO C/O PAIN. SITE COVERED WITH DRY DRESSING. WILL INSERT NEW IV ACCESS. PT HAD x1 LARGE LOOSE BROWN BM. PERICARE PROVIDED. FUNGAL CREAM APPLIED TO PERINEAL & PERIANAL AREA. PT REPOSITIONED. CALL LIGHT WITHIN REACH.
[2018-03-28] MEDS: Z-GUARD PASTE TP SCH (13:00)
--- NOTE | 2018-03-28 13:00 | NUR ---
PT SITTING UP EATING LUNCH, NO C/O PAIN OR DISCOMFORT. RESPIRATIONS EVEN & UNLABORED. CALL LIGHT WITHIN REACH.
--- NOTE | 2018-03-28 15:15 | NUR ---
PT IN BED WATCHING TV, NO C/O PAIN OR DISCOMFORT. HAS MOD SIZED BM. PERICARE PROVIDED, LINENS CHANGED, PT REPOSITIONED. ANTIFUNGAL CREAM APPLIED TO PERINEAL & PERIANAL AREA. PT ORAL TX WELL. CALL LIGHT WITHIN REACH.
[2018-03-28 16:00] VITALS: BP 111/65
[2018-03-28] MEDS: traMADol 50 MG TAB PO PRN (16:29)
--- NOTE | 2018-03-28 19:20 | NUR ---
BEDSIDE REPORT GIVEN TO PM SHIFT NURSE RUTH.
--- NOTE | 2018-03-28 19:21 | NUR ---
RECD. RESTING IN BED, AWAKE, A/OX4. RESPIRATION EVEN AND UNLABORED. IV OF NS AT TKO INFUSING, LEFT HAND G22. HAS BEEN HAVING LOOSE BM. ON LAXATIVES AND STOOL SOFTENERS. VERBALIZED THAT THESE MEDICATIONS GIVE HIM TORTURE. EXPLAINED THAT HE NEEDS THOSE MEDICATIONS TO RELIEVE HIS IMPACTION AND TO MAKE HIM FEEL BETTER. SUPRAPUBIC CATHETER TO A PERRY BAG DRAINING CLEAR YELLOW URINE. SAFETY MEASURES ENFORCED. PLAN OF CARE FOR THE SHIFT DISCUSSED. VERBALIZED UNDERSTANDING. DENIES PAIN 0/10.
[2018-03-28] MEDS: traZODone 50 MG TAB PO SCH (21:02)
[2018-03-28] MEDS: HYDROcodone/APAP 5/325 MG 1 TAB TAB PO PRN (21:02)
--- NOTE | 2018-03-28 21:05 | NUR ---
DUE PO MEDICATION GIVEN, REFUSED LACTULOSE. EXPLAINED AGAIN ITS IMPORTANCE BUT STILL REFUSED.
--- NOTE | 2018-03-28 22:00 | NUR ---
DR. Trip RAMIREZ CAME AND CHECKED PATIENT, INFORMED PT REFUSED LACTULOSE. DISCONTINUED LACTULOSE BUT PATIENT HAS TO CONTINUE DRINKING OTHER STOOL SOFTENERS.
[2018-03-29] VITALS: BP 104/71
--- NOTE | 2018-03-29 | NUR ---
SLEEPING COMFORTABLY IN BED.
[2018-03-29] MEDS: PIPER/TAZO 3.375GM/D5W PREMIX 50 ML IV SCH ×4 (00:53→17:32)
[2018-03-29] MEDS: MILD SOAP AND WATER TP SCH ×2 (01:00→13:27)
[2018-03-29] MEDS: HYDROcodone/APAP 5/325 MG 1 TAB TAB PO PRN ×3 (02:18→11:00)
--- NOTE | 2018-03-29 04:00 | NUR ---
STILL SLEEPING COMFORTABLY IN BED.
[2018-03-29] MEDS: PANTOPRAZOLE 40 MG TABEC PO SCH (06:04)
--- NOTE | 2018-03-29 07:15 | NUR ---
PATIENT HAD A TOTAL OF THREE MODERATE AMOUNT OF LOOSE BM.ENDORSED TO MICHAEL RN FOR CONTINUITY OF CARE.
--- NOTE | 2018-03-29 07:16 | NUR ---
RECEIVED BEDSIDE REPORT FROM PM SHIFT NURSE RUTH. PT IN BED, AWAKE, VERBALLY RESPONSIVE. NO C/O PAIN AT THIS TIME. CALL LIGHT WITHIN REACH.
[2018-03-29 07:27] LABS: BASOPHILS # (AUTO) 0.1 K/uL (0.00-0.22); BASOPHILS % (AUTO) 1.5 % (0.0-2.0); EOSINOPHILS # (AUTO) 0.5 K/uL (0-0.4); EOSINOPHILS % (AUTO) 9.4 % (0.0-4.0); HEMATOCRIT 30.5 % (36-52); HEMOGLOBIN 9.7 g/dL (12.0-18.0); LYMPHOCYTES # (AUTO) 1.5 K/uL (2.0-11.5); LYMPHOCYTES % (AUTO) 28.5 % (20.5-51.1); MEAN CORPUSCULAR HEMOGLOBIN 29 pg (27-31); MEAN CORPUSCULAR HGB CONC 32 g/dL (33-37); MEAN CORPUSCULAR VOLUME 91.9 fL (80-94); MONOCYTES # (AUTO) 0.6 K/uL (0.8-1.0); MONOCYTES % (AUTO) 11.1 % (1.7-9.3); NEUTROPHILS # (AUTO) 2.6 K/uL (1.8-7.7); NEUTROPHILS % (AUTO) 49.5 % (42.2-75.2); PLATELET COUNT (AUTO) 300 K/uL (140-450); RED BLOOD CELL COUNT(AUTO) 3.32 MIL/uL (4.20-6.10); RED CELL DISTRIBUTION WIDTH 19.6 % (11.6-13.7); WHITE BLOOD COUNT (AUTO) 5.2 K/uL (4.8-10.8)
[2018-03-29 08:00] VITALS: BP 108/58
[2018-03-29 08:05] LABS: ANION GAP 13.1 (8-16); CARBON DIOXIDE 25.7 mmol/L (21-32); CREATININE 1.2 mg/dL (0.7-1.3); POTASSIUM 3.8 mmol/L (3.5-5.1)
--- NOTE | 2018-03-29 09:10 | NUR ---
PT HAD SMALL BM x1. PERICRE PROVIDED. SUPRAPUBIC CATH IN PLACE & DRAINING WELL. LEFT HAND IV INTACT & ASYMPTOMATIC. CALL LIGHT WITHIN REACH.
[2018-03-29] MEDS: METOCLOPRAMIDE 10 MG/2 ML INJ VIAL IVP SCH ×4 (09:14→22:19)
[2018-03-29] MEDS: SENNA 8.6 MG TAB PO SCH ×2 (09:14→12:25)
[2018-03-29] MEDS: POTASSIUM CHLORIDE 10 MEQ TABER PO SCH (09:15)
[2018-03-29] MEDS: ANTIFUNGAL CLEAR OINTMENT TP SCH ×2 (09:15→21:48)
[2018-03-29] MEDS: ZINC SULF 220 MG CAP PO SCH (09:15)
[2018-03-29] MEDS: POLYETHYLENE GLYCOL 17 GM/PKT PO SCH ×2 (09:15→12:25)
[2018-03-29] MEDS: ASCORBIC ACID 500 MG TAB PO SCH (09:15)
--- NOTE | 2018-03-29 10:28 | NUR ---
SPOKE WITH KETAN FROM PICC LINE [facility]ICE, STATED LILIA-PICC LINE NURSE WILL GIVE US A CALL FOR ETA. MICHAEL-ANAM ASSIGNED NOTIFIED.
[2018-03-29 11:26] LABS: PROTHROMBIN TIME 10.4 secs (10.8-13.4)
--- NOTE | 2018-03-29 11:32 | NUR ---
1115 MET WITH PATIENT AT BEDSIDE AND DISCUSSED WITH HIM PHYSICIAN ORDER FOR IV ABX X 6 WEEKS AND PATIENT IS IN AGREEMENT WITH GOING TO SNF TO COMPLETE ABX. STATED HE DOES LIVE WITH FRIENDS WHO ARE HIS CAREGIVERS BUT HE PREFERS TO GO TO SNF FOR SHORT TIME.
--- NOTE | 2018-03-29 11:43 | NUR ---
CM NOTE FAXED ORDER FOR SNF TO [facility] [phone] AND LEFT VM FOR JEANCARLOS REDD # [phone] (COVERING FOR JEANCARLOS STARK). NO CALL BACK AT THIS TIME.
[2018-03-29] MEDS: traMADol 50 MG TAB PO PRN (12:25)
--- NOTE | 2018-03-29 12:38 | NUR ---
PICC NURSE ARAMIS AT BEDSIDE TO INITIATE PICC INSERTION. PT C/O FEELING ANXIOUS. LORAZEPAM ADMINISTERED.
--- NOTE | 2018-03-29 13:10 | NUR ---
PICC INSERTION COMPLETED BY ARAMIS PICC NURSE. 2-LUMEN PICC PRESENT TO RIGHT UPPER ARM. NO SWELLING/REDNESS. CALL LIGHT WITHIN REACH.
[2018-03-29] MEDS: Z-GUARD PASTE TP SCH (13:27)
--- NOTE | 2018-03-29 13:38 | NUR ---
PT ASLEEP, FLACC 0. AROUSABLE BY AUDITORY STIMULI. PT DROWSY BUT VERBALLY RESPONSIVE. NO C/O PAIN OR DISCOMFORT. PT STATES HE WILL EAT LUNCH LATER D/T DROWSINESS. PT REPOSITIONED. CALL LIGHT WITHIN REACH.
--- NOTE | 2018-03-29 13:48 | NUR ---
ASLEEP NO PULMONARY DISTRESS NOTED [facility]N THERAPY NOT REQUIRED AT THIS TIME
[2018-03-29] MEDS ORDERED: HYDROcodone/APAP 5/325 MG 1 TAB TAB PO PRN (14:30)
[2018-03-29] MEDS ORDERED: LORazepam 2 MG/ML VIAL IVP PRN (14:30)
--- NOTE | 2018-03-29 15:36 | NUR ---
CM NOTE PER [facility] JEANCARLOS REDD PH# [phone], IF PATIENT NEEDS SNF TO TRY [facility] OR [facility].
[2018-03-29 16:00] VITALS: BP 118/70
--- NOTE | 2018-03-29 17:10 | NUR ---
PT ASLEEP, AROUSABLE BY AUDITORY STIMULI. PT DROWSY BUT VERBALLY RESPONSIVE. NO C/O PAIN AT THIS TIME. PT REPOSITIONED. CALL LIGHT WITHIN REACH.
--- NOTE | 2018-03-29 19:30 | NUR ---
BEDSIDE REPORT GIVEN TO PM SHIFT NURSE RUTH.
--- NOTE | 2018-03-29 19:31 | NUR ---
RECD. RESTING IN BED, AWAKE, A/OX3. RESPIRATION EVEN AND UNLABORED. IV TKO INFUSING , RIGHT UPPER ARM DOUBLE LUMEN PICC LINE. SEEMS DROWSY. HAD JUST FINISHED EATING HIS DINNER. DENIES LOOSE BM AT THIS TIME. WITH SUPRAPUBIC CATHETER CONNECTED TO BAG DRAINING CLEAR YELLOW URINE. DENIES PAIN 0/10.
[2018-03-29 20:00] VITALS: BP 116/64
--- NOTE | 2018-03-29 20:00 | NUR ---
Patient's Plan of Care was discussed and reviewed with JAMMIE: RUTH
[2018-03-29] MEDS: traZODone 50 MG TAB PO SCH (21:46)
--- NOTE | 2018-03-29 21:46 | NUR ---
WAKEN UP TO TAKE HIS NIGHT MEDICATION. BACK TO SLEEP AFTER DRINKING MEDICATION,
[2018-03-30] VITALS: BP 115/71
--- NOTE | 2018-03-30 | NUR ---
STILL SLEEPING COMFORTABLY IN BED.
[2018-03-30] MEDS: PIPER/TAZO 3.375GM/D5W PREMIX 50 ML IV SCH ×4 (00:15→18:00)
[2018-03-30] MEDS: MILD SOAP AND WATER TP SCH ×2 (01:25→13:00)
--- NOTE | 2018-03-30 05:30 | NUR ---
HAD A MEDIUM LOOSE BM. CLEANSED AND MADE COMFORTABLE IN BED.
[2018-03-30] MEDS: PANTOPRAZOLE 40 MG TABEC PO SCH (07:01)
--- NOTE | 2018-03-30 07:01 | NUR ---
WAKEN UP FOR THE AM MEDICATION. SEEMS STILL SLEEPY. NO COMPLAINT OF PAIN 0/10.
[2018-03-30 07:08] LABS: BASOPHILS # (AUTO) 0.1 K/uL (0.00-0.22); BASOPHILS % (AUTO) 1.2 % (0.0-2.0); EOSINOPHILS # (AUTO) 0.4 K/uL (0-0.4); EOSINOPHILS % (AUTO) 5.7 % (0.0-4.0); HEMATOCRIT 29.7 % (36-52); HEMOGLOBIN 9.4 g/dL (12.0-18.0); LYMPHOCYTES # (AUTO) 1.5 K/uL (2.0-11.5); LYMPHOCYTES % (AUTO) 19.4 % (20.5-51.1); MEAN CORPUSCULAR HEMOGLOBIN 29 pg (27-31); MEAN CORPUSCULAR HGB CONC 32 g/dL (33-37); MEAN CORPUSCULAR VOLUME 91.3 fL (80-94); MONOCYTES # (AUTO) 0.6 K/uL (0.8-1.0); MONOCYTES % (AUTO) 7.4 % (1.7-9.3); NEUTROPHILS # (AUTO) 5.2 K/uL (1.8-7.7); NEUTROPHILS % (AUTO) 66.3 % (42.2-75.2); PLATELET COUNT (AUTO) 310 K/uL (140-450); RED BLOOD CELL COUNT(AUTO) 3.25 MIL/uL (4.20-6.10); RED CELL DISTRIBUTION WIDTH 19.1 % (11.6-13.7); WHITE BLOOD COUNT (AUTO) 7.9 K/uL (4.8-10.8)
[2018-03-30 07:17] LABS: ANION GAP 11.3 (8-16); CARBON DIOXIDE 27.5 mmol/L (21-32); CREATININE 1.2 mg/dL (0.7-1.3); POTASSIUM 3.8 mmol/L (3.5-5.1)
--- NOTE | 2018-03-30 07:35 | NUR ---
ENDORSED TO ANAM POSADA FOR CONTINUITY OF CARE.
--- NOTE | 2018-03-30 07:36 | NUR ---
RECIVED REPORT FROM PM NURSE AT BEDSIDE. PT HAS PIIC LINE ON RT UA, HAS SUPRAPUBIC FC, DRAINING WELL. IVF INFUSING WELL. PT ON CONTACT [facility] FOR ESBL IN URINE. SLEEPING AT THIS TIME . ALL SAFETY MEASURE IN PLACE. WILL CONTINUE TO MONITOR PT.
[2018-03-30 08:05] VITALS: BP 109/52
[2018-03-30] MEDS ORDERED: SENNA 8.6 MG TAB PO SCH (09:00)
[2018-03-30] MEDS: POLYETHYLENE GLYCOL 17 GM/PKT PO SCH ×2 (09:00→09:38)
[2018-03-30] MEDS: ZINC SULF 220 MG CAP PO SCH (09:41)
[2018-03-30] MEDS: POTASSIUM CHLORIDE 10 MEQ TABER PO SCH (09:42)
[2018-03-30] MEDS: ASCORBIC ACID 500 MG TAB PO SCH (09:42)
[2018-03-30] MEDS: METOCLOPRAMIDE 10 MG/2 ML INJ VIAL IVP SCH ×3 (09:43→17:00)
--- NOTE | 2018-03-30 09:44 | NUR ---
CM NOTE PER MOISES [facility] - NO ISOLATION BED PER NIDHI MAHAN [facility] - NO ISOLATION BED PER [facility] - THEY ONLY TAKE [facility] MEDICARE MANAGED AND GROUP HOME. THEY CAN TAKE TAKE PATIENT IF THEY WILL BE ISSUED AN MODESTO. PER AN REDD, THEY WILL NOT ISSUE AN MODESTO AT THIS TIME. PER YANCY OF [facility], SHE WILL CHECK IF THEY ARE CONTRACTED WITH PATIENT'S INSURANCE AND IF THEY WOULD HAVE A BED AVAILABLE. SHE REQUESTED CLINICAL PACKET TO BE FAXED TO HER. FAXED CLINICAL PACKET TO [facility]. Addendum: 03/30/18 at 1006 by Kristin Bedolla CM PER YANCY [facility] - NO ISOLATION BED
[2018-03-30] MEDS: ANTIFUNGAL CLEAR OINTMENT TP SCH (10:00)
--- NOTE | 2018-03-30 10:03 | NUR ---
ADMINISTERED MEDS TO PT ORDERED. PT REFUSED MIRALAX, STATES HE IS ALREADY HAVING ENOUGH BM. COIL BUILDER REPORTED TO HAVE BM THIS AM. ALL OTHER MEDS TOLERATED WELL. PT APPEARS RELAXED AND NORMAL. NO SIGN OF DISTRESS NOTED. ALL SAFETY MEASURE IN PLACE. INFORMED PT TO USE CALL LIGHT FRO ANY HELP. VERBALISED UNDERSTANDING. WILL CONTINUE TO MONITOR PT.
[2018-03-30] MEDS: Z-GUARD PASTE TP SCH (13:00)
--- NOTE | 2018-03-30 13:11 | NUR ---
JEANCARLOS NOTE PER AN REDD, THAT IF PATIENT NEEDS TRANSPORT TO GO TO SNF, TO USE LOCATED WITHIN [facility]# [phone] AND NO PRE-AUTHORIZATION IS NEEDED. JEANCARLOS REDD WAS INFORMED THAT NO ACCEPTING SNF AT THIS TIME AND SHE SAID TO TRY THE FOLLOWING FACILITIES: EDY [facility], [facility], [facility], [facility], [facility]. Addendum: 03/30/18 at 1325 by Kristin Bedolla FAXED INQUIRY TO EDY [facility] , [facility], [facility], [facility], [facility], [facility].
--- NOTE | 2018-03-30 13:15 | NUR ---
03/30/18 RD FOLLOW UP COMPLETED PLEASE REFER TO NUTRITION ASSESSMENT UNDER CARE ACTIVITY FOR ESTIMATED NUTRITIONAL NEEDS. 1. RECOMMEND REGULAR DIET TOLERATED 2. CONTINUE VITAMIN C AND ZINC SULFATE FOR WOUND HEALING 3. RD TO FOLLOW-UP 3-5 DAYS, MODERATE RISK TINY MEHTA, RD
--- NOTE | 2018-03-30 14:20 | NUR ---
CM NOTE PER COREY [facility]ATER - NO ISOLATION BED PER [facility] - [facility] - THEY ARE NOT ACCEPTING THE PATIENT. NO REASON GIVEN PER [facility] - NO ISOLATION BED PER [facility] - THEY DO NOT TAKE [facility], ONLY NURSING HOME PER [facility] - NO ISOLATION BED PER [facility] NOW CALLED [facility] [place] [address] [place] [id number], PH# [phone] - THEY ARE ACCEPTING PATIENT AND PATIENT CAN GO TO [address] PER [facility] PH[facility] JEANCARLOS REDD PH# [phone], FOR ACCEPTING SNF, AUTH# [id number] AND TO USE LOGISTIC CARE FOR TRANSPORTATION AUTH# [id number] SPOKE WITH PATIENT BEDSIDE AND HE SAID HE IS NOT GOING TO A SNF IN [place] CHARGE NURSE MAXIMO TRUJILLO
--- NOTE | 2018-03-30 15:12 | NUR ---
CM NOTE PER DR. Judith CARLSON'S ORDER NOTE, PATIENT'S MDRO URINE IS COLONIZED PER ERIKA CHEEMA, THEY ONLY TAKE [facility] OR [facility] BUT NOT [facility] FAXED URINE MDRO COLONIZED NOTE TO [facility]. PER MOISES OF [facility], SHE WILL LET US KNOW IF THEY WOULD HAVE A BED AVAILABLE TODAY. I GAVE HER THE NUMBER TO THE NURSING STATION WHERE PATIENT IS IN CASE A BED BECOMES AVAILABLE CHARGE NURSE MAXIMO TRUJILLO
[2018-03-30 16:00] VITALS: BP 110/62
[2018-03-30] MEDS ORDERED: ROC2I IV (16:32)
[2018-03-30] MEDS ORDERED: METR250T2 PO (16:33)
--- NOTE | 2018-03-30 16:35 | NUR ---
PER MOISES SHE WANTS TO KNOW IF WE CAN CHANGE THE ABX FOR ANOTHER DOSAGE, PAGED DR. FREEMAN AND HE SAID CHANGE IT TO ROCEPHIN IV DAILY X 5 WEEKS AND FLAGYL 500 MG PO DAILY X 5 WEEKS. PER MOISES PATIENT CAN GO TO ROOM 2 BED C, REPORT TO [phone] [place].
--- NOTE | 2018-03-30 17:00 | NUR ---
WORKING ON PT DISCHARGE PROCESS. WHEEL ALIGNMENT MECHANIC TIME 1730. WILL CONTINUE TO MONITOR PT. PT BEING TRANSFERRED TO [facility] FOR CONTINUATION OF ABX.
--- NOTE | 2018-03-30 17:02 | NUR ---
NOTIFIED MELINA THAT PATIENT WILL GO TO THE MEDICAL CENTER.
[2018-03-30] MEDS ORDERED: PNEUMOCOCCAL VACCINE 23 MCG/0.5 ML VIAL IMVAC SCH (17:05)
[2018-03-30] MEDS ORDERED: INFLUENZA VIRUS VACCINE QUAD 0.5 ML SYR IMVAC PRN (17:05)
[2018-03-30 17:23] VITALS: BP 109/52
--- NOTE | 2018-03-30 17:45 | NUR ---
PT INFORMED THAT HE IS GOING TO BE TRANSFERRED TO [facility], FAMILY NOTIFIED. PT TALKING TO FAMILY MELINA. INFORMED HIM THAT HE IS GOING TO BE ON IV ABX TO CONTINUE TO SNF, STABLE TO BE DISCHARGE FROM THE HOSPITAL. PT UPSET OF BEING DISCHARGED. CARDING MACHINE OPERATOR AT BEDSIDE TALKING TO PT.
--- NOTE | 2018-03-30 18:00 | NUR ---
TALKED TO JAMMIE HOOVER FROM [facility]. PT GETTING TRANSFERED TO FACILITY TODAY, INFORMED HER THAT PT IS GOING WITH IV ROCEPHIN 1 G OD X 5WKS, AND FLAGYL 500 MG PO OD X 5WKS. INFORMED HER THAT PER CHARGE NURSE MAXIMO, DR. FREEMAN GAVE ORDER FOR METRONIDAZOLE , AWARE PT BEING ALLERGIC TO IT. TO MONITOR THE SEVERITY OF REACTION CAUSED BY MEDS. VERBALIZED UNDERSTANDING . GAVE HER CALL BACK NUMBER [phone] IF PT HAVE ANY ADDITIONAL ORDER.
--- NOTE | 2018-03-30 18:38 | NUR ---
PT LEFT THE HOSPITAL WITH TRANSPORT PERSONNEL, AGREED TO GO . SIGNED THE DC PAPER. DC PACKET PROVIDED TO PT AND TO THE SNF. PT HAS PICC LINE ON HIS RT UPPER ARM. PICC LINE IS INTACT, HAS SUPRAPUBIC CATHETER , PASSING URINE GOOD. PT STABLE AT TIME OF DISCHARGE.
== END 2018-03-30 18:38 | DRG 720 ==
LOC: MED 21:18 → MTU 03-26 02:56
PROVIDERS: ADMIT Preventive Medicine Preventive Medicine/Occupational Environmental Medicine; ATTEND Preventive Medicine Preventive Medicine/Occupational Environmental Medicine
PROC: 02HV33Z Insertion of Infusion Device into Superior Vena Cava, Percutaneous Approach (ICD-10-PCS; principal; 2018-03-29)
PROC: B548ZZA Ultrasonography of Superior Vena Cava, Guidance (ICD-10-PCS; 2018-03-29)
DX: A41.9 Sepsis, unspecified organism (principal); E83.52 Hypercalcemia; M86.9 Osteomyelitis, unspecified; K62.5 Hemorrhage of anus and rectum; K56.41 Fecal impaction; K44.9 Diaphragmatic hernia without obstruction or gangrene; R59.1 Generalized enlarged lymph nodes; E87.6 Hypokalemia; R79.89 Other specified abnormal findings of blood chemistry; N18.9 Chronic kidney disease, unspecified; J45.909 Unspecified asthma, uncomplicated; G80.9 Cerebral palsy, unspecified; Z87.442 Personal history of urinary calculi; E78.5 Hyperlipidemia, unspecified; N13.6 Pyonephrosis; L89.90 Pressure ulcer of unspecified site, unspecified stage; B96.89 Other specified bacterial agents as the cause of diseases classified elsewhere; B96.4 Proteus (mirabilis) (morganii) as the cause of diseases classified elsewhere; D64.9 Anemia, unspecified
CPT/HCPCS: 36415; 71045; 74018; 80048; 80053; 81001; 82150; 83690; 85025; 85610; 85651; 86140; 87081; 87086; 87186; 94640; 96361; 96365; 96366; 96367; 96375; 96376; 99285; C1751; J0696; J2060; J2270; J2405; J2543; J2765; J3370; J3490; J7030; J7060; J7613; Q0092

== ENCOUNTER 2018-03-31 17:19 | Inpatient (IN) | payer MEDICAID ==
[~2018-03-31] VITALS: Ht 162.6 cm; Wt 78.9 kg
[~2018-03-31 17:19] MED LIST changes: +METR250T2 PO; +ROC2I IV
--- NOTE | 2018-03-31 17:20 | NUR ---
PATIENT BIB EMS FROM [facility] WITH C/O RUQ ABD PAIN AND VOMITING. PT STATES HE TOOK 4 ZOFRAN ODT BUT NO RELIEF. 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 SUPRAPUBIC CATHETER IN PLACE. DOUBLE LUMEN PICC NOTED ON THE RIGHT UPPER ARM. LUNGS CLEAR BL; HR EVEN AND REGULAR; PT DENIES ANY FEVER, CP, SOB, OR COUGH AT THIS TIME; PATIENT STATES PAIN OF 5/10 AT THIS TIME; VSS; PATIENT POSITIONED FOR COMFORT; HOB ELEVATED; BEDRAILS UP X2; BED DOWN. ER MD MADE AWARE OF PT STATUS.
--- NOTE | 2018-03-31 17:20 | NUR ---
PT BIBA BLS TO BED 5
[2018-03-31 17:22] VITALS: BP 152/93
--- NOTE | 2018-03-31 18:10 | NUR ---
LAB AT BEDSIDE
[2018-03-31 18:24] LABS: BASOPHILS # (AUTO) 0.1 K/uL (0.00-0.22); BASOPHILS % (AUTO) 0.8 % (0.0-2.0); EOSINOPHILS # (AUTO) 0.2 K/uL (0-0.4); EOSINOPHILS % (AUTO) 1.5 % (0.0-4.0); HEMATOCRIT 34.6 % (36-52); HEMOGLOBIN 11.2 g/dL (12.0-18.0); LYMPHOCYTES # (AUTO) 1.3 K/uL (2.0-11.5); MEAN CORPUSCULAR HEMOGLOBIN 29 pg (27-31); MEAN CORPUSCULAR HGB CONC 32 g/dL (33-37); MEAN CORPUSCULAR VOLUME 90.2 fL (80-94); MONOCYTES # (AUTO) 0.7 K/uL (0.8-1.0); MONOCYTES % (AUTO) 6.4 % (1.7-9.3); NEUTROPHILS # (AUTO) 8.6 K/uL (1.8-7.7); NEUTROPHILS % (AUTO) 79.3 % (42.2-75.2); PLATELET COUNT (AUTO) 424 K/uL (140-450); RED BLOOD CELL COUNT(AUTO) 3.83 MIL/uL (4.20-6.10); RED CELL DISTRIBUTION WIDTH 19.6 % (11.6-13.7); WHITE BLOOD COUNT (AUTO) 10.8 K/uL (4.8-10.8)
[2018-03-31] MEDS ORDERED: NACL 0.9% 1,000 ML IV SCH (18:24)
[2018-03-31] MEDS ORDERED: PROMETHAZINE 25 MG/ML VIAL IM ONE (18:25)
[2018-03-31] MEDS ORDERED: ONDANSETRON 4 MG/2 ML VIAL IVP ONE (18:25)
[2018-03-31] MEDS ORDERED: METOCLOPRAMIDE 10 MG/2 ML INJ VIAL IVP ONE (18:30)
[2018-03-31] MEDS ORDERED: diphenhydrAMINE 50 MG/ML VIAL IVP ONE (18:30)
[2018-03-31] MEDS ORDERED: FAMOTIDINE 20 MG/2 ML VIAL IVP ONE (18:30)
[2018-03-31 18:37] LABS: APPEARANCE,URINE SLIGHTLY CLOUDY (CLEAR); COLOR,URINE YELLOW (YELLOW)
[2018-03-31 18:38] LABS: UGLUCOSE NEGATIVE (NEGATIVE)
--- NOTE | 2018-03-31 18:38 | NUR ---
XRAY AT BEDSIDE
[2018-03-31 18:39] LABS: BILIRUBIN,URINE NEGATIVE (NEGATIVE); BLOOD, URINE 3+ (NEGATIVE); LEUKOCYTE ESTERASE ,URINE 3+ (NEGATIVE); NITRITE, URINE NEGATIVE (NEGATIVE)
[2018-03-31 18:41] LABS: ANION GAP 11.3 (8-16); CARBON DIOXIDE 28.7 mmol/L (21-32)
[2018-03-31 18:44] LABS: AMYLASE 92 U/L (25-115)
[2018-03-31 18:45] LABS: RBC,URINE 20-50 /HPF (0-5); WBC,URINE TOO MANY TO COUNT /HPF (0-5)
[2018-03-31 18:53] LABS: ALBUMIN 3.4 g/dL (3.4-5.0); TOTAL BILIRUBIN 0.1 mg/dL (0.0-1.0)
[2018-03-31] MEDS ORDERED: METOCLOPRAMIDE 10 MG/2 ML INJ VIAL IVP PRN (19:05)
[2018-03-31] MEDS ORDERED: ACETAMINOPHEN 325 MG TAB PO PRN (19:05)
[2018-03-31] MEDS ORDERED: ALBUTEROL SULFATE/IPRATROPIU 3 ML SOL IH PRN (19:05)
--- NOTE | 2018-03-31 19:18 | NUR ---
Patient Tranfers to outside Facility Physician: Location:Pt report given to ANAM WHYTE. Transfer of care at this time.
--- NOTE | 2018-03-31 19:25 | NUR ---
REPORT RECEIVED FROM ANAM MORILLO
--- NOTE | 2018-03-31 19:57 | NUR ---
Patient will be admitted to care of DR TREVINO. Admited to TELE. Will go to room 118. Belongings list completed. Report to ANAM WHITFIELD.
[2018-03-31 20:05] VITALS: BP 119/76
--- NOTE | 2018-03-31 20:05 | NUR ---
PT ARRIVED TO UNIT VIA GURNEY BY ER NURSE. REPORT GIVEN AT BEDSIDE. PT RESTING IN BED. AOX4, ON ROOM AIR, RIGHT ARM DOUBLE PICC LINE, BLE/BUE CONTRACTURES NOTED. SACRAL OPEN WOUND "CELLULITIS" PICTURE TAKEN BY ER IN CHART. DISCUSSED PLAN OF CARE AND PT VERBALIZED UNDERSTANDING. NO S/S OF RESPIRATORY DISTRESS OR DISCOMFORT NOTED AT THIS TIME.VITAL SIGNS TAKEN AND TOLERATED WELL. MRSA SWAB COLLECTED. ORIENTED PT TO BEDROOM, CALL LIGHT AND BED. BED IN LOWEST POSITION, BED BREAKS ON, BOTH SIDE RAILS UP, BED ALARM ON, FALL PRECAUTIONS IN PLACE. BEDSIDE TABLE AND CALL LIGHT ARE WITHIN REACH. WILL CONTINUE TO MONITOR.
[2018-03-31] MEDS ORDERED: SODIUM PHOSPHATE 118 ML ENEM RC PRN (20:10)
[2018-03-31] MEDS ORDERED: BISACODYL 10 MG SUPP RC PRN (20:10)
[2018-03-31 20:13] LABS: PROTHROMBIN TIME 10.2 secs (10.8-13.4)
[2018-03-31 20:23] LABS: FREE T4 (FREE THYROXINE) 1.14 ng/dL (0.76-1.46); PHOSPHORUS 4.2 mg/dL (2.5-4.9); THYROID STIMULATING HORMONE 0.7 uIU/mL (0.34-3.74)
[2018-03-31] MEDS: traZODone 50 MG TAB PO SCH (20:31)
[2018-03-31] MEDS: NACL 0.9% 1,000 ML IV SCH (20:31)
[2018-03-31] MEDS ORDERED: DOCUSATE SODIUM 100 MG GELCAP PO SCH (21:00)
[2018-03-31] MEDS ORDERED: LACTULOSE 20 GM/30 ML UDC PO PRN (21:00)
[2018-03-31] MEDS ORDERED: LACTULOSE 20 GM/30 ML UDC PO SCH (21:00)
--- NOTE | 2018-03-31 21:00 | NUR ---
SCHEDULED MEDICATION GIVEN. NEW BAG OF IVF HUNG AND TOLERATED WELL. NO S/S OF RESPIRATORY DISTRESS OR DISCOMFORT NOTED AT THIS TIME. WILL CONTINUE TO MONITOR.
--- NOTE | 2018-03-31 23:00 | NUR ---
PT SLEEPING AT THIS TIME. NO S/S OF RESPIRATORY DISTRESS OR DISCOMFORT NOTED AT THIS TIME. WILL CONTINUE TO MONITOR.
[2018-04-01] VITALS: BP 119/76
--- NOTE | 2018-04-01 | NUR ---
VITAL SIGNS TAKEN AND TOLERATED WELL. NO S/S OF RESPIRATORY DISTRESS OR DISCOMFORT NOTED AT THIS TIME. WILL CONTINUE TO MONITOR.
--- NOTE | 2018-04-01 02:00 | NUR ---
PT CONTINUES TO SLEEP. NO S/S OF RESPIRATORY DISTRESS OR DISCOMFORT NOTED AT THIS TIME. WILL CONTINUE TO MONITOR.
[2018-04-01 04:00] VITALS: BP 116/70
--- NOTE | 2018-04-01 04:00 | NUR ---
VITAL SIGNS TAKEN AND TOLERATED WELL. NO S/S OF RESPIRATORY DISTRESS OR DISCOMFORT NOTED AT THIS TIME. WILL CONTINUE TO MONITOR.
[2018-04-01] MEDS: PANTOPRAZOLE 40 MG TABEC PO SCH (06:14)
--- NOTE | 2018-04-01 06:14 | NUR ---
SCHEDULED MEDICATION GIVEN AND TOLERATED WELL. NO S/S OF RESPIRATORY DISTRESS OR DISCOMFORT NOTED AT THIS TIME. WILL CONTINUE TO MONITOR.
[2018-04-01 07:06] LABS: BASOPHILS # (AUTO) 0.1 K/uL (0.00-0.22); BASOPHILS % (AUTO) 1.2 % (0.0-2.0); EOSINOPHILS # (AUTO) 0.3 K/uL (0-0.4); EOSINOPHILS % (AUTO) 5.3 % (0.0-4.0); HEMATOCRIT 28.8 % (36-52); HEMOGLOBIN 9.2 g/dL (12.0-18.0); LYMPHOCYTES # (AUTO) 1.3 K/uL (2.0-11.5); MEAN CORPUSCULAR HEMOGLOBIN 29 pg (27-31); MEAN CORPUSCULAR HGB CONC 32 g/dL (33-37); MEAN CORPUSCULAR VOLUME 90.5 fL (80-94); MONOCYTES # (AUTO) 0.6 K/uL (0.8-1.0); MONOCYTES % (AUTO) 8.8 % (1.7-9.3); NEUTROPHILS # (AUTO) 4.1 K/uL (1.8-7.7); NEUTROPHILS % (AUTO) 64.7 % (42.2-75.2); PLATELET COUNT (AUTO) 304 K/uL (140-450); RED BLOOD CELL COUNT(AUTO) 3.19 MIL/uL (4.20-6.10); WHITE BLOOD COUNT (AUTO) 6.4 K/uL (4.8-10.8)
--- NOTE | 2018-04-01 07:09 | NUR ---
ENDORSED PT CARE TO DAY SHIFT NURSE MOUSTAPHA FOR CONTINUITY OF CARE.
[2018-04-01 07:16] LABS: ANION GAP 11.4 (8-16); CARBON DIOXIDE 25.1 mmol/L (21-32); CREATININE 0.9 mg/dL (0.7-1.3); POTASSIUM 3.5 mmol/L (3.5-5.1)
[2018-04-01 07:24] LABS: MAGNESIUM 1.9 mg/dL (1.8-2.4); PHOSPHORUS 3.3 mg/dL (2.5-4.9)
[2018-04-01 07:45] VITALS: BP 109/73
--- NOTE | 2018-04-01 07:45 | NUR ---
RECEIVED PATIENT FROM INJECTION MOLD TOOLING TECHNICIAN RN BY BEDSIDE. PATIENT IS ALERT AND ORIENTED. PATIENT HAS EVEN, UNLABORED RESPIRATION ON ROOM AIR. PATIENT STATES THAT HE HAS PAIN SCORE 5 (PAIN SCALE 0-10) AND REQUEST TO BE MEDICATED. WILL MEDICATE PER ORDER. SKIN IS DRY AND WARM. VSS. PATIENT STATED THAT THERE IS NO PAIN ON PICC LINE WHICH IS LOCATED ON THE R UPPER ARM. NO REDNESS NOTED ON THE PICC LINE. PATIENT IS ON REPRODUCTION MACHINE LOADER. BED IS AT THE LOWEST POSITION WITH CALL LIGHT WITHIN REACH.
[2018-04-01] MEDS: ASCORBIC ACID 500 MG TAB PO SCH (08:58)
[2018-04-01] MEDS: ZINC SULF 220 MG CAP PO SCH (08:58)
[2018-04-01] MEDS: metroNIDAZOLE 500 MG TAB PO SCH (08:58)
[2018-04-01] MEDS: LACTOBACILLUS RHAMNOSUS GG 1 EACH CAP PO SCH (08:58)
[2018-04-01] MEDS: traMADol 50 MG TAB PO PRN (08:59)
[2018-04-01] MEDS ORDERED: cefTRIAXone 2,000 MG VIAL IV SCH (09:00)
[2018-04-01] MEDS ORDERED: NON-FORMULARY ITEM (Lactulose 30 ML) PO SCH (09:00)
[2018-04-01] MEDS: cefTRIAXone 2,000 MG in DEXTROSE 5% 100 ML IV SCH (09:01)
--- NOTE | 2018-04-01 09:30 | NUR ---
PATIENT IS SITTING ON HIS BED COMFORTABLY BUT STATES THAT HE IS HAVING PAIN. PAIN SCORE OF 5 OUT OF 10. WILL MEDICATE THE PATIENT PER ORDER. BED POSITION AT THE LOWEST POSITION AND CALL LIGHT WITHIN REACH.
[2018-04-01] MEDS: HYDROcodone/APAP 5/325 MG 1 TAB TAB PO PRN ×2 (12:33→17:27)
--- NOTE | 2018-04-01 12:45 | NUR ---
PATIENT IS COMFORTABLY SITTING ON THE BED EATING HIS LUNCH. HE STATES THAT THE PAIN LEVEL IS STILL 5 FROM BEFORE. THE PAIN MEDICATION GIVEN DID NOT REDUCE THE PAIN LEVEL. WILL MEDICATE PER ORDER. HE IS ON ROOM AIR. BED AT THE LOWEST POSITION AND CALL LIGHT WITHIN REACH.
--- NOTE | 2018-04-01 15:30 | NUR ---
PATIENT IS SITTING ON HIS BED WATCHING TV. HE IS ON ROOM AIR. HE STATES THAT HE DOES HAVE PAIN BUT DOES NOT NEED MEDICATION AT THIS TIME. WILL CONTINUE TO MONITOR HIS PAIN LEVEL. BED AT THE LOWEST POSITION AND CALL LIGHT IS WITHIN REACH.
[2018-04-01 16:30] VITALS: BP 111/74
[2018-04-01] MEDS ORDERED: Z-GUARD PASTE TP PRN (16:45)
[2018-04-01] MEDS: NACL 0.9% 1,000 ML IV SCH (18:44)
--- NOTE | 2018-04-01 19:37 | NUR ---
ENDORSED PATIENT TO THE ASSISTANT OCEANOGRAPHER RN BY BEDSIDE. PATIENT IS SITTING ON HIS BED AND DENIES ANY PAIN. BED IS AT THE LOWEST POSITION AND CALL LIGHT WITHIN REACH.
--- NOTE | 2018-04-01 19:38 | NUR ---
RECEIVED PT IN STABLE CONDITION FROM AM NURSE. MED SURG PT. AWAKE,ALERT AND ORIENTED X3. BEDREST. WITH NO C/O ANY DISCOMFORT NOR PAIN NOTED. HAS IVF INFUSING WELL ON THE RT UPPER ARM PICC LINE. CLEAR AND PATENT. HAS SUPRAPUBIC CATHETER DRAINING WELL TO CLEAR YELLOW URINE. WITH RT ISCHIUM WOUND AND SACRAL REDNESS. BED ON LOW POSITION. FREQUENT ROUNDS NEEDED. CALL LIGHT PLACED WITHIN EASY REACH. WILL CONTINUE TO MONITOR.
--- NOTE | 2018-04-01 21:00 | NUR ---
REPOSITIONED PT FOR COMFORT. NO C/O ANY PAIN NOTED.
[2018-04-01] MEDS: traZODone 50 MG TAB PO SCH (21:04)
--- NOTE | 2018-04-01 22:30 | NUR ---
PT ASLEEP. NO DISTRESS NOR ANY DISCOMFORT NOTED.
[2018-04-02] VITALS: BP 104/64
--- NOTE | 2018-04-02 | NUR ---
PT AWAKE, WATCHING TV. VITAL SIGNS TAKEN.STABLE WITH NO /CO PAIN NOTED.
--- NOTE | 2018-04-02 01:30 | NUR ---
MADE ROUNDS. PT ASLEEP. NO S/S DISTRESS NOTED.
--- NOTE | 2018-04-02 03:30 | NUR ---
MADE ROUNDS . PT IS ASLEEP. NO S/S OF ANY PAIN NOR DISCOMFORT NOTED.
[2018-04-02] MEDS: PANTOPRAZOLE 40 MG TABEC PO SCH (06:02)
--- NOTE | 2018-04-02 06:10 | NUR ---
BLOOD DRAWN THIS AM . WILL FOLLOW UP RESULTS.
--- NOTE | 2018-04-02 07:10 | NUR ---
RECEIVED PT REPORT AT BEDSIDE FROM PARARESCUE MANAGER NURSE. PT IS AWAKE AND ALERT, NO S/S OF ACUTE DISTRESS. PT'S CAREGIVER AT BEDSIDE. PT IS ON ROOM AIR. PICC LINE NOTED ON RUE, INFUSING NS AT 50 ML/HR. SUPRAPUBIC CATHETER IN PLACE. SKIN INTACT EXCEPT FOR THE OLD HEALED WOUND ON THE SACRUM. PT IS ON CONTACT ISOLATION FOR MDRO. FALL PRECAUTIONS IN PLACE. CALL LIGHT WITHIN REACH. WILL CONTINUE TO MONITOR.
--- NOTE | 2018-04-02 07:28 | NUR ---
ENDORSED PT IN STABLE CONDITION TO AM NURSE.
[2018-04-02 07:40] LABS: BASOPHILS # (AUTO) 0.1 K/uL (0.00-0.22); BASOPHILS % (AUTO) 1.4 % (0.0-2.0); EOSINOPHILS # (AUTO) 0.5 K/uL (0-0.4); EOSINOPHILS % (AUTO) 7.6 % (0.0-4.0); HEMATOCRIT 27.8 % (36-52); HEMOGLOBIN 8.9 g/dL (12.0-18.0); LYMPHOCYTES # (AUTO) 1.3 K/uL (2.0-11.5); LYMPHOCYTES % (AUTO) 19.7 % (20.5-51.1); MEAN CORPUSCULAR HEMOGLOBIN 29 pg (27-31); MEAN CORPUSCULAR HGB CONC 32 g/dL (33-37); MEAN CORPUSCULAR VOLUME 91.2 fL (80-94); MONOCYTES # (AUTO) 0.5 K/uL (0.8-1.0); MONOCYTES % (AUTO) 7.8 % (1.7-9.3); NEUTROPHILS # (AUTO) 4.1 K/uL (1.8-7.7); NEUTROPHILS % (AUTO) 63.5 % (42.2-75.2); PLATELET COUNT (AUTO) 286 K/uL (140-450); RED BLOOD CELL COUNT(AUTO) 3.05 MIL/uL (4.20-6.10); RED CELL DISTRIBUTION WIDTH 18.9 % (11.6-13.7); WHITE BLOOD COUNT (AUTO) 6.5 K/uL (4.8-10.8)
[2018-04-02 08:00] VITALS: BP 102/75
[2018-04-02] MEDS: metroNIDAZOLE 500 MG TAB PO SCH (08:52)
[2018-04-02] MEDS: cefTRIAXone 2,000 MG in DEXTROSE 5% 100 ML IV SCH (08:52)
[2018-04-02] MEDS: ZINC SULF 220 MG CAP PO SCH (08:52)
--- NOTE | 2018-04-02 08:52 | NUR ---
PATIENT HAS BEEN SCREENED AND CATEGORIZED HIGH NUTRITION RISK. PATIENT WILL BE SEEN WITHIN 1-2 DAYS OF ADMISSION. 04/02/[address]
[2018-04-02] MEDS: ASCORBIC ACID 500 MG TAB PO SCH (08:53)
[2018-04-02] MEDS: LACTOBACILLUS RHAMNOSUS GG 1 EACH CAP PO SCH (08:55)
--- NOTE | 2018-04-02 09:05 | NUR ---
PT SEEN BY DR. CARLSON
--- NOTE | 2018-04-02 10:47 | NUR ---
WOUND CARE EVALUATION NOTE: REASON FOR EVALUATION: MULTIPLE WOUNDS SKIN ASSESSMENT DONE WITH THIS 52 Y/O MALE PT ADMITTED TO [facility] WITH INITIAL DX OF ABDOMEN PAIN, NAUSEA AND VOMITING. PT. ADMITTED WITH PRESSURE INJURY TO SACRALCOCCYX AND RIGHT ISCHIUM. PAST MEDICAL HX INCLUDES CEREBRAL PALSY AND ASTHMA. ALL ABOVE INFORMATION OBTAINED FROM ADMISSION H&P. PT IS AWAKE. SKIN IS WARM AND DRY, MULTIPLE SURGICAL OLD HEALED SCARS TO HIPS AND KNEES. SUPRAPUBIC CATHETER IN PLACE WITH MODERATE AMOUNT CLEAR YELLOW URINE OBSERVED. 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 UNABLE TO ASSESS CAPILLARY REFILLED DUE TO FUNGAL NAILS. PLAN OF CARE DISCUSSED WITH PRIMARY RN AND PT. PT. VERBALIZING UNDERSTANDING. CLARIFICATION: NO PRESSURE INJURY STAGE 4 TO RIGHT ISCHIUM, PRIMARY RN AND DR. CLARK NOTIFY. INTEGUMENTARY: -SUPRAPUBIC OSTOMY SADA-SKIN DRY AND CLEAN -RIGHT ISCHIUM PRESSURE INJURY STAGE 2, 2X2X0.1 CM, WOUND BED IS PINK. MOIST, NO ODOR, SADA-WOUND SKIN REDNESS EXTENDED TO SACRALCOCCYX SADA-WOUND -PRESSURE INJURY STAGE 2 TO SACRALCOCCYX 4X3X0.1 CM, SADA-WOUND SKIN REDNESS, IRREGULAR SHAPE MERGED WITH PERIANAL IAD, WOUND BED RED AND MOIST,NO ODOR -INCONTINENT ASSOCIATE DERMATITIS (IAD) REDNESS: GROINS, PENIS, ANTERIOR AND POSTERIOR SCROTUM EXTENDED TO PERIANAL - FUNGAL DERMATITIS TO TOE NAILS AND (TOES) INTERSPACES RECOMMENDATIONS: -CLEANSE SACRALCOCCYX AND RIGHT ISCHIUM PRESSURE INJURIES WITH WOUND CARE SOLUTIONS, PAT DRY, APPLY Z-GUARD AND COVER WITH DRY DRESSING CHANGE QD AND PRN IF SOILING. -APPLY HYDRAGUARD TO: GROINS, PENIS, ANTERIOR AND POSTERIOR SCROTUM EXTENDED TO PERIANAL BID AND PRN IF SOILING -APPLY ANTI-FUNGAL CREAM TO- FUNGAL DERMATITIS: TOE NAILS AND (TOES) INTERSPACES -KEEP SKIN DRY AND CLEAN AT ALL TIMES, PLEASE CHECK Q2H AND PRN FOR INCONTINENCY OF BOWEL -OFFLOAD BILATERAL HEELS BY PLACING PILLOWS UNDER CALVES AND KNEES UNLESS OTHERWISE CONTRAINDICATED -PRESSURE REDISTRIBUTION SURFACE THERAPY -TURN AND REPOSITION Q2H, OFFLOAD SACRALCOCCYX AND RIGHT ISCHIUM. -CONTINUE TO FOLLOW RD RECOMMENDATIONS ALL ABOVE RECOMMENDATIONS DISCUSSED WITH PRIMARY RN WILL FOLLOW UP Q7-10 DAYS, PLEASE CONTACT WOUND CARE NURSE FOR ANY QUESTION AND CHANGE OF WOUND CONDITION.
[2018-04-02 10:52] LABS: ANION GAP 10.7 (8-16); CARBON DIOXIDE 26.3 mmol/L (21-32); CREATININE 0.9 mg/dL (0.7-1.3)
[2018-04-02] MEDS: NACL 0.9% 1,000 ML IV SCH (11:02)
[2018-04-02 11:03] LABS: MAGNESIUM 1.9 mg/dL (1.8-2.4); PHOSPHORUS 3.4 mg/dL (2.5-4.9)
[2018-04-02] MEDS: HYDRAGUARD CREAM TP SCH (13:00)
[2018-04-02] MEDS ORDERED: ANTIFUNGAL CLEAR OINTMENT TP SCH (13:00)
[2018-04-02] MEDS: Z-GUARD PASTE TP SCH (13:00)
[2018-04-02] MEDS: HYDROcodone/APAP 5/325 MG 1 TAB TAB PO PRN ×3 (13:32→21:30)
--- NOTE | 2018-04-02 13:38 | NUR ---
04/02/18 RD INITIAL ASSESSMENT COMPLETED PLEASE REFER TO NUTRITION ASSESSMENT UNDER CARE ACTIVITY FOR ESTIMATED NUTRITIONAL NEEDS. 1. CONTINUE REGULAR DIET TOLERATED 2. DIETITIAN RECOMMENDED KENNEDY 2X/DAY 3. RD TO FOLLOW-UP 2-3 DAYS, HIGH RISK TINY MEHTA, RD
--- NOTE | 2018-04-02 14:57 | NUR ---
CALLED [facility] AND SPOKE WITH MOISES. SHE SAID THE PATIENT IS SELF RESPONSIBLE . MOISES SAID SHE WOULD TAKE THE PATIENT BACK UPON DISCHARGE. PATIENT UNDER DR. Nury CARLSON. I SPOKE BRIEFLY WITH THE PATIENT. HE REALLY EVENTUALLY WANTS TO GO HOME. Addendum: 04/03/18 at 1458 by Jocy Chance PER MOISES, PATIENT IS ON A 7 DAY BED HOLD.
--- NOTE | 2018-04-02 15:10 | NUR ---
CHANGED PT'S BED/MATTRESS TO WOUND BED PER WOUND CARE NURSE.
[2018-04-02 16:00] VITALS: BP 103/72
--- NOTE | 2018-04-02 16:09 | NUR ---
PT LYING COMFORTABLY IN BED WATCHING TV, NO S/S OF DISTRESS, NO C/O PAIN AT THIS TIME. CALL LIGHT WITHIN REACH. FALL PRECAUTIONS IN PLACE. WILL CONTINUE TO MONITOR.
--- NOTE | 2018-04-02 17:30 | NUR ---
VITAL SIGNS STABLE, NO S/S OF DISTRESS NOTED, NO SOB. PT C/O BACK PAIN 11/28, ADMINISTERED PRN NORCO. CALL LIGHT WITHIN REACH, FALL PRECAUTIONS IN PLACE. WILL CONTINUE TO MONITOR.
--- NOTE | 2018-04-02 19:05 | NUR ---
PT REPORT GIVEN AT BEDSIDE TO PIPE COVERER NURSE. PT ENDORSED IN STABLE CONDITION.
--- NOTE | 2018-04-02 19:10 | NUR ---
RECEIVED REPORT FROM NU AT BEDSIDE FOR CONTINUITY OF CARE. CONTACT PRECAUTIONS FOR MDRO URINE. CODE STATUS: MODIFIED: NO INTUBATION. I NOTED EVERT DOUBLE LUMEN PICC LINE NS 50 ML/HR. NO SOB NO S/S OF DISTRESS ON RA. SUPRAPUBIC PERRY IN PLACE. BED LOWERED CALL LIGHT WITHIN REACH WILL CONTINUE TO MONITOR.
--- NOTE | 2018-04-02 20:50 | NUR ---
MD FREEMAN AWARE OF PT + VRE URINE CULTURE. AND ORDERED WOUND CULTURE WELL. WILL CONTINUE TO MONITOR.
[2018-04-02] MEDS: traZODone 50 MG TAB PO SCH (20:52)
[2018-04-02] MEDS ORDERED: LINEZOLID 600 MG TAB PO SCH (21:30)
--- NOTE | 2018-04-02 22:31 | NUR ---
ADMIN PAIN MED 1 HR AGO. WILL CONTINUE TO MONITOR. PAIN MED EFFECTIVE PT SLEEPING.
[2018-04-03] VITALS: BP 115/66
[2018-04-03] MEDS: HYDRAGUARD CREAM TP SCH ×2 (01:00→13:00)
[2018-04-03] MEDS: Z-GUARD PASTE TP SCH ×2 (01:00→13:00)
[2018-04-03] MEDS: HYDROcodone/APAP 5/325 MG 1 TAB TAB PO PRN ×3 (05:23→23:34)
[2018-04-03] MEDS: PANTOPRAZOLE 40 MG TABEC PO SCH (05:24)
[2018-04-03] MEDS: NACL 0.9% 1,000 ML IV SCH (07:02)
--- NOTE | 2018-04-03 07:05 | NUR ---
ENDORSED TO DAYSHIFT FOR CONTINUITY OF CARE.
--- NOTE | 2018-04-03 07:25 | NUR ---
PT REPORT RECEIVED AT BEDSIDE FROM TISSUE TECHNICIAN NURSE. PT IS ASLEEP AT THIS TIME. PT HAS A DOUBLE LUMEN PICCLINE NOTED ON RUE. PT IS ON ROOM AIR. NO SOB, NO S/S OF ACUTE DISTRESS NOTED. PT ON REGULAR DIET. BED IS IN LOW POSITION, CALL LIGHT WITHIN REACH. WILL CONTINUE TO MONITOR.
[2018-04-03 08:00] VITALS: BP 112/75
[2018-04-03] MEDS: metroNIDAZOLE 500 MG TAB PO SCH (08:54)
[2018-04-03] MEDS: ASCORBIC ACID 500 MG TAB PO SCH (08:54)
[2018-04-03] MEDS: LINEZOLID 600 MG TAB PO SCH ×2 (08:54→20:20)
[2018-04-03] MEDS: ZINC SULF 220 MG CAP PO SCH (08:54)
[2018-04-03] MEDS: LACTOBACILLUS RHAMNOSUS GG 1 EACH CAP PO SCH (08:55)
[2018-04-03] MEDS: cefTRIAXone 2,000 MG in DEXTROSE 5% 100 ML IV SCH (08:57)
[2018-04-03 09:23] LABS: BASOPHILS # (AUTO) 0.1 K/uL (0.00-0.22); BASOPHILS % (AUTO) 1.5 % (0.0-2.0); EOSINOPHILS # (AUTO) 0.5 K/uL (0-0.4); EOSINOPHILS % (AUTO) 9.4 % (0.0-4.0); HEMATOCRIT 27.9 % (36-52); LYMPHOCYTES # (AUTO) 1.4 K/uL (2.0-11.5); LYMPHOCYTES % (AUTO) 25.8 % (20.5-51.1); MEAN CORPUSCULAR HEMOGLOBIN 29 pg (27-31); MEAN CORPUSCULAR HGB CONC 32 g/dL (33-37); MEAN CORPUSCULAR VOLUME 90.6 fL (80-94); MONOCYTES # (AUTO) 0.4 K/uL (0.8-1.0); MONOCYTES % (AUTO) 7.3 % (1.7-9.3); PLATELET COUNT (AUTO) 313 K/uL (140-450); RED BLOOD CELL COUNT(AUTO) 3.08 MIL/uL (4.20-6.10); RED CELL DISTRIBUTION WIDTH 18.6 % (11.6-13.7); WHITE BLOOD COUNT (AUTO) 5.4 K/uL (4.8-10.8)
[2018-04-03 09:33] LABS: ANION GAP 12.1 (8-16); CARBON DIOXIDE 26.7 mmol/L (21-32); POTASSIUM 3.8 mmol/L (3.5-5.1)
[2018-04-03 09:37] LABS: MAGNESIUM 1.9 mg/dL (1.8-2.4); PHOSPHORUS 3.1 mg/dL (2.5-4.9)
--- NOTE | 2018-04-03 15:00 | NUR ---
PT TURNED, CLEANED, AND REPOSITIONED. WOUND CARE DONE. PT TOLERATED WELL.
[2018-04-03 16:00] VITALS: BP 126/72
--- NOTE | 2018-04-03 18:11 | NUR ---
PT EATING DINNER AT THIS TIME. NO S/S OF DISTRESS, NO C/O PAIN, NO SOB. CALL LIGHT WITHIN REACH. WILL CONTINUE TO MONITOR.
--- NOTE | 2018-04-03 19:10 | NUR ---
PT REPORT GIVEN TO DRAIN CLEANER PLUMBER NURSE AT BEDSIDE. PT ENDORSED IN STABLE CONDITION.
[2018-04-03] MEDS: traZODone 50 MG TAB PO SCH (20:19)
--- NOTE | 2018-04-03 21:00 | NUR ---
PER PT PT NEEDS TO CHANGE/ REPLACE SUPRAPUBIC CATHETER APR 11. [place]OLOGIST [place] [facility] [phone]
[2018-04-04] VITALS: BP 117/72
[2018-04-04] MEDS: NACL 0.9% 1,000 ML IV SCH ×2 (03:02→17:04)
[2018-04-04] MEDS: HYDRAGUARD CREAM TP SCH ×2 (03:13→13:12)
[2018-04-04] MEDS: Z-GUARD PASTE TP SCH ×2 (03:14→13:12)
[2018-04-04] MEDS: PANTOPRAZOLE 40 MG TABEC PO SCH (05:53)
[2018-04-04] MEDS: HYDROcodone/APAP 5/325 MG 1 TAB TAB PO PRN ×3 (05:53→18:40)
[2018-04-04 07:09] LABS: BASOPHILS # (AUTO) 0.1 K/uL (0.00-0.22); BASOPHILS % (AUTO) 1.5 % (0.0-2.0); EOSINOPHILS # (AUTO) 0.6 K/uL (0-0.4); EOSINOPHILS % (AUTO) 10.7 % (0.0-4.0); HEMATOCRIT 28.4 % (36-52); HEMOGLOBIN 8.9 g/dL (12.0-18.0); LYMPHOCYTES # (AUTO) 1.8 K/uL (2.0-11.5); LYMPHOCYTES % (AUTO) 29.1 % (20.5-51.1); MEAN CORPUSCULAR HEMOGLOBIN 28 pg (27-31); MEAN CORPUSCULAR HGB CONC 31 g/dL (33-37); MEAN CORPUSCULAR VOLUME 90.4 fL (80-94); MONOCYTES # (AUTO) 0.5 K/uL (0.8-1.0); MONOCYTES % (AUTO) 8.8 % (1.7-9.3); NEUTROPHILS % (AUTO) 49.9 % (42.2-75.2); PLATELET COUNT (AUTO) 336 K/uL (140-450); RED BLOOD CELL COUNT(AUTO) 3.14 MIL/uL (4.20-6.10)
--- NOTE | 2018-04-04 07:15 | NUR ---
ENDORSED REPORT TO DAYSHIFT NURSE AT BEDSIDE FOR CONTINUITY OF CARE.
[2018-04-04 07:17] LABS: ANION GAP 11.5 (8-16); CARBON DIOXIDE 25.5 mmol/L (21-32)
--- NOTE | 2018-04-04 07:20 | NUR ---
RECEIVED REPORT FROM AIRCRAFT PART ASSEMBLER NURSE, PT IS SLEEPING IN BED BUT EASILY AWAKEN, PT IS AAOX3, WHEELCHAIR BOUND, PT HAS PICC LINE ON RIGHT UPPER ARM, PATENT, INTACT, FLUSHING WELL, NO S/S OF RESPIRATORY DISTRESS OR DISCOMFORT NOTED, PT IS ON ROOM AIR, PT HAS SACRAL WOUND, DISCUSSED PLAN OF CARE WITH PT, PT VERBALIZED UNDERSTANDING, SAFETY/FALL PRECAUTIONS ARE IN PLACE, CALL LIGHT IS WITHIN REACH, WILL CONTINUE TO MONITOR.
[2018-04-04 07:24] LABS: PHOSPHORUS 3.2 mg/dL (2.5-4.9)
[2018-04-04 08:00] VITALS: BP 111/69
[2018-04-04] MEDS: metroNIDAZOLE 500 MG TAB PO SCH (08:50)
[2018-04-04] MEDS: ZINC SULF 220 MG CAP PO SCH (08:50)
[2018-04-04] MEDS: ASCORBIC ACID 500 MG TAB PO SCH (08:51)
[2018-04-04] MEDS: LINEZOLID 600 MG TAB PO SCH ×2 (08:51→21:05)
[2018-04-04] MEDS: cefTRIAXone 2,000 MG in DEXTROSE 5% 100 ML IV SCH (08:51)
[2018-04-04] MEDS: LACTOBACILLUS RHAMNOSUS GG 1 EACH CAP PO SCH (08:52)
--- NOTE | 2018-04-04 09:45 | NUR ---
DUE MEDICATION GIVEN , PT TOLERATED WELL, CALL LIGHT WITHIN REACH.
[2018-04-04] MEDS: DOCUSATE SODIUM 100 MG GELCAP PO PRN (15:54)
[2018-04-04 16:00] VITALS: BP 121/67
--- NOTE | 2018-04-04 17:00 | NUR ---
WOUND CARE DONE, PT HAS 1 BOWEL MOVEMENT, PT CLEANED AND DRESSING CHANGED. ALL NEEDS MET AT THIS TIME, CALL LIGHT WITHIN REACH.
[2018-04-04] MEDS: traMADol 50 MG TAB PO PRN ×2 (17:03→21:05)
--- NOTE | 2018-04-04 19:39 | NUR ---
ENDORSED PT TO GASOLINE ENGINE INSPECTOR NURSE FOR CONTINUITY OF CARE. PT STABLE AT THIS TIME.
--- NOTE | 2018-04-04 19:40 | NUR ---
RECD. RESTING IN BED, AWAKE, A/OX3. RESPIRATION EVEN AND UNLABORED. WATCHING TV. IV OF NS AT 50 ML/HR INFUSING, RIGHT UPPER ARM PICC LINE. WITH SUPRAPUBIC CATHETER DRAINING CLEAR YELLOW URINE. WITH SACRAL WOUND, ON WOUND CARE BED, BILATERAL SEQUENTIALS ON. PLAN OF CARE FOR THE SHIFT DISCUSSED. VERBALIZED UNDERSTANDING. DENIES PAIN 0/10.
--- NOTE | 2018-04-04 21:05 | NUR ---
DUE PO MEDICATIONS GIVEN.
[2018-04-04] MEDS: traZODone 50 MG TAB PO SCH (21:06)
[2018-04-05] VITALS: BP 112/76
--- NOTE | 2018-04-05 00:33 | NUR ---
Patient's Plan of Care was discussed and reviewed with SPECIALIST MANAGERS: RUTH BALLARD
[2018-04-05] MEDS: HYDRAGUARD CREAM TP SCH ×2 (01:00→12:03)
[2018-04-05] MEDS: Z-GUARD PASTE TP SCH ×2 (01:00→12:03)
--- NOTE | 2018-04-05 02:41 | NUR ---
NAUSEATED, MEDICATED WITH REGLAN 10 MG. IVP BY ANAM FERMIN.
--- NOTE | 2018-04-05 03:20 | NUR ---
VOMITED SMALL AMOUNT OF DARK BROWN LIQUID WITH SOME PARTICLES OF FOOD. WILL PAGE FOR ORDER.
--- NOTE | 2018-04-05 04:15 | NUR ---
NO NAUSEA, NO COMPLAINT OF ABDOMINAL PAIN 0/10.
[2018-04-05] MEDS: HYDROcodone/APAP 5/325 MG 1 TAB TAB PO PRN ×2 (04:17→12:59)
[2018-04-05] MEDS: PANTOPRAZOLE 40 MG TABEC PO SCH (06:07)
[2018-04-05 06:36] LABS: BASOPHILS % (AUTO) 0.5 % (0.0-2.0); EOSINOPHILS # (AUTO) 0.3 K/uL (0-0.4); EOSINOPHILS % (AUTO) 2.7 % (0.0-4.0); HEMATOCRIT 27.7 % (36-52); HEMOGLOBIN 8.8 g/dL (12.0-18.0); LYMPHOCYTES % (AUTO) 9.8 % (20.5-51.1); MEAN CORPUSCULAR HEMOGLOBIN 29 pg (27-31); MEAN CORPUSCULAR HGB CONC 32 g/dL (33-37); MEAN CORPUSCULAR VOLUME 90.3 fL (80-94); MONOCYTES # (AUTO) 0.5 K/uL (0.8-1.0); MONOCYTES % (AUTO) 5.5 % (1.7-9.3); NEUTROPHILS # (AUTO) 7.9 K/uL (1.8-7.7); NEUTROPHILS % (AUTO) 81.5 % (42.2-75.2); PLATELET COUNT (AUTO) 309 K/uL (140-450); RED BLOOD CELL COUNT(AUTO) 3.07 MIL/uL (4.20-6.10); RED CELL DISTRIBUTION WIDTH 18.6 % (11.6-13.7); WHITE BLOOD COUNT (AUTO) 9.7 K/uL (4.8-10.8)
[2018-04-05 06:59] LABS: ANION GAP 10.4 (8-16); CARBON DIOXIDE 26.5 mmol/L (21-32); POTASSIUM 3.9 mmol/L (3.5-5.1)
--- NOTE | 2018-04-05 07:20 | NUR ---
CONDITION REMAIN STABLE. ENDORSED TO AM SHIFT NURSE FOR CONTINUITY OF CARE.
--- NOTE | 2018-04-05 07:20 | NUR ---
RECEIVED PT REPORT FROM AIR BAG BUFFER NURSE AT BEDSIDE, PT IS SLEEPING, ROUSED BY NAME, OX3. RESPIRATION EVEN AND UNLABORED.RIGHT UPPER ARM PICC LINE NOTED, INFUSING NS AT 50 ML/HR. SUPRAPUBIC CATHETER DRAINING CLEAR YELLOW URINE. SACRAL WOUND WITH DRESSING DRY AND INTACT, ON WOUND CARE BED, BILATERAL SCD ON. DENIES PAIN AT THIS TIME. WILL CONTINUE TO MONITOR.
[2018-04-05 08:00] VITALS: BP 102/65
[2018-04-05] MEDS: LACTOBACILLUS RHAMNOSUS GG 1 EACH CAP PO SCH (09:56)
[2018-04-05] MEDS: metroNIDAZOLE 500 MG TAB PO SCH (09:56)
[2018-04-05] MEDS: ZINC SULF 220 MG CAP PO SCH (09:56)
[2018-04-05] MEDS: cefTRIAXone 2,000 MG in DEXTROSE 5% 100 ML IV SCH (09:56)
[2018-04-05] MEDS: ASCORBIC ACID 500 MG TAB PO SCH (09:57)
[2018-04-05] MEDS: LINEZOLID 600 MG TAB PO SCH ×2 (09:57→20:52)
[2018-04-05] MEDS: NACL 0.9% 1,000 ML IV SCH (12:03)
[2018-04-05] MEDS: DOCUSATE SODIUM 100 MG GELCAP PO PRN (12:59)
--- NOTE | 2018-04-05 14:22 | NUR ---
FAXED CHEST X RAY, CBC, BMP, UA, AND URINE CULTURE RESULT TO DR MAXWELL (FAX # [phone]), SURGEON FOR STENT REPLACEMENT NEXT WED.
--- NOTE | 2018-04-05 14:31 | NUR ---
04/05/18 RD FOLLOW UP COMPLETED PLEASE REFER TO NUTRITION ASSESSMENT UNDER CARE ACTIVITY FOR ESTIMATED NUTRITIONAL NEEDS. 1. CONTINUE REGULAR DIET TOLERATED 2. CONTINUE ZINC AND VITAMIN C FOR PRESSURE ULCER 3. RD TO FOLLOW-UP 3-5 DAYS, MODERATE RISK TINY MEHTA, RD
[2018-04-05] MEDS: traMADol 50 MG TAB PO PRN ×2 (16:17→20:53)
[2018-04-05 16:30] VITALS: BP 120/75
--- NOTE | 2018-04-05 18:50 | NUR ---
SPOKE WITH DR ROBYN Wong OVER THE PHONE, OK TO RENEW YL AND AROLDO.
--- NOTE | 2018-04-05 19:30 | NUR ---
ENDORSED PT TO COMPONENT INSPECTOR RN, PT IN STABLE CONDITION.
--- NOTE | 2018-04-05 19:31 | NUR ---
RECEIVED REPORT FROM DAY SHIFT NURSE VETO-RN AT BEDSIDE. PT RESTING IN BED, AOX4, ON BEDREST, ON ROOM AIR WITH RIGHT UPPER ARM PICC LINE DOUBLE LUMEN NOTED, INFUSING NS AT 50 ML/HR. SUPRAPUBIC CATHETER DRAINING CLEAR YELLOW URINE. SACRAL WOUND WITH DRESSING DRY AND INTACT AND INCONTINENT DERMATITIS NOTED. DISCUSSED PLAN OF CARE AND PT VERBALIZED UNDERSTANDING. NO S/S OF RESPIRATORY DISTRESS OR DISCOMFORT NOTED AT THIS TIME. BED IN LOWEST POSITION, BED BREAKS ON, BOTH SIDE RAILS UP, ON WOUND BED, BED ALARM AND FALL PRECAUTIONS IN PLACE. BEDSIDE TABLE AND CALL LIGHT ARE IN PLACE. WILL CONTINUE TO MONITOR.
[2018-04-05 20:00] VITALS: BP 142/85
--- NOTE | 2018-04-05 20:00 | NUR ---
VITAL SIGNS TAKEN AND TOLERATED WELL. PT C/O LEG PAIN 10/29- WILL ADMINISTER PAIN MEDICATION. NO S/S OF RESPIRATORY DISTRESS OR DISCOMFORT NOTED AT THIS TIME. WILL CONTINUE TO MONITOR.
[2018-04-05] MEDS: traZODone 50 MG TAB PO SCH (20:53)
--- NOTE | 2018-04-05 21:01 | NUR ---
SCHEDULED MEDICATION GIVEN AND PAIN MEDICATION GIVEN AND TOLERATED WELL. NO S/S OF RESPIRATORY DISTRESS OR DISCOMFORT NOTED AT THIS TIME. WILL CONTINUE TO MONITOR.
--- NOTE | 2018-04-05 23:00 | NUR ---
PT RESTING IN BED. NO S/S OF RESPIRATORY DISTRESS OR DISCOMFORT NOTED AT THIS TIME. WILL CONTINUE TO MONITOR.
[2018-04-06] VITALS: BP 114/72
--- NOTE | 2018-04-06 | NUR ---
VITAL SIGNS TAKEN AND TOLERATED WELL. NO S/S OF RESPIRATORY DISTRESS OR DISCOMFORT NOTED AT THIS TIME. WILL CONTINUE TO MONITOR.
[2018-04-06] MEDS: HYDRAGUARD CREAM TP SCH ×2 (01:17→11:53)
[2018-04-06] MEDS: Z-GUARD PASTE TP SCH ×2 (01:18→11:54)
--- NOTE | 2018-04-06 02:00 | NUR ---
PT CONTINUES TO SLEEP IN BED. NO S/S OF RESPIRATORY DISTRESS OR DISCOMFORT NOTED AT THIS TIME. WILL CONTINUE TO MONITOR.
--- NOTE | 2018-04-06 04:00 | NUR ---
PT CONTINUES TO SLEEP IN BED. NO S/S OF RESPIRATORY DISTRESS OR DISCOMFORT NOTED AT THIS TIME. WILL CONTINUE TO MONITOR.
[2018-04-06] MEDS: traMADol 50 MG TAB PO PRN ×3 (04:57→21:05)
--- NOTE | 2018-04-06 04:57 | NUR ---
PT C/O PAIN 6/10 ON LEGS. TRAMADOL GIVEN FOR PAIN. PT TOLERATED WELL. NO S/S OF RESPIRATORY DISTRESS OR DISCOMFORT NOTED AT THIS TIME. WILL CONTINUE TO MONITOR.
[2018-04-06] MEDS: PANTOPRAZOLE 40 MG TABEC PO SCH (05:56)
[2018-04-06] MEDS: NACL 0.9% 1,000 ML IV SCH (05:57)
--- NOTE | 2018-04-06 05:57 | NUR ---
SCHEDULED MEDICATION PROTONIX AND NEW IVF BAG HUNG. PT TOLERATED WELL. NO S/S OF RESPIRATORY DISTRESS OR DISCOMFORT NOTED AT THIS TIME. WILL CONTINUE TO MONITOR.
--- NOTE | 2018-04-06 07:13 | NUR ---
ENDORSED PT CARE TO DAY SHIFT NURSE MARNIE FOR CONTINUITY OF CARE.
--- NOTE | 2018-04-06 07:30 | NUR ---
RECEIVED PT REPORT FROM SIMULATION ANALYST NURSE AT BEDSIDE, PT IS SLEEPING, ROUSED BY NAME, OX3. RESPIRATION EVEN AND UNLABORED.RIGHT UPPER ARM PICC LINE NOTED, INFUSING NS AT 50 ML/HR. SUPRAPUBIC CATHETER DRAINING CLOUDY YELLOW URINE. SACRAL WOUND WITH DRESSING DRY AND INTACT, BILATERAL SCD ON. DENIES PAIN AT THIS TIME. WILL CONTINUE TO MONITOR.
[2018-04-06 08:00] VITALS: BP 105/67
[2018-04-06] MEDS ORDERED: ROC2I IV (09:29)
[2018-04-06] MEDS ORDERED: METR250T2 PO (09:29)
[2018-04-06] MEDS: LACTOBACILLUS RHAMNOSUS GG 1 EACH CAP PO SCH (09:31)
[2018-04-06] MEDS: ZINC SULF 220 MG CAP PO SCH (09:31)
[2018-04-06] MEDS: metroNIDAZOLE 500 MG TAB PO SCH (09:31)
[2018-04-06] MEDS: LINEZOLID 600 MG TAB PO SCH ×2 (09:31→20:53)
[2018-04-06] MEDS: ASCORBIC ACID 500 MG TAB PO SCH (09:32)
[2018-04-06] MEDS: cefTRIAXone 2,000 MG in DEXTROSE 5% 100 ML IV SCH (09:32)
--- NOTE | 2018-04-06 10:51 | NUR ---
SPOKE WITH DR. Judith CARLSON THIS MORNING. HE SAID HE IS PLANNING ON SENDING THE PATIENT HOME ON IV ROCEPHIN DAILY FOR 6 WEEK. WAITING FOR ORDER. I CALL [facility] AND LEFT MESSAGE FOR ERIC, X126 MINE X 109 AND IVELISSE X131. PHONE [phone]. VETO MENDIETA SPOKE WITH THE PATIENT. HIS ADDRESS IS [facility] [address] [place] [address]. PATIENT DOES NOT KNOW THE PHONE NUMBER. I SPOKE WITH SHRUTHI FROM [facility], . SHE NEEDED THE ADDRESS AND PHONE AND WHETHER HE HAD HOME HEALTH BEFORE.
--- NOTE | 2018-04-06 11:50 | NUR ---
DRESSING CHANGED FOR SACRAL, Z-GUARD APPLIED, PIC TAKEN. PT TOLERATED WELL
--- NOTE | 2018-04-06 13:00 | NUR ---
PT ATE WELL, STANDBY ASSISTANCE PROVIDED. NO S/S OF ACUTE DISTRESS NOTED.
--- NOTE | 2018-04-06 13:15 | NUR ---
I CALLED [employer], [phone]. WAS TOLD THEY WILL HAVE SOMEONE CALL ME BACK. I NEED TO CONFIRM THE ADDRESS OF THE PATIENT AND THE PHONE NUMBER TO BE ABLE TO SET UP HOME HEALTH AND IV ANTIBIOTICS.
[2018-04-06] MEDS: HYDROcodone/APAP 5/325 MG 1 TAB TAB PO PRN ×2 (13:25→22:18)
--- NOTE | 2018-04-06 13:51 | NUR ---
I SPOKE WITH SHRUTHI AT [facility]. SHE SAID TO USE [facility] FOR THE IV AN[facility]IBIOTICS, [phone] AND FAXED ORDER FACE SHEET WITH CORRECT ADDRESS ON BOTTOM AND H&P TO [phone]. I WAS ABLE TO SPEAK WITH IRENA, RETAIL FIELD REPRESENTATIVE, [phone]. HE SAID HIS MARTA SUMMERS IS ALSO AT THE HOUSE AND COULD BE TAUGHT HOW TO DO THE IV ANTIBIOTICS. I SPOKE WITH MENDOZA AT [facility] AND HE SAID OUR AQUATIC SCIENTIST IS TATIANA, AND THAT [facility] WOULD INFORM TATIANA. I SPOKE WITH TATIANA AND HE WILL CALL ME BACK ABOUT THE ANTIBIOTICS. THE CORRECT ADDRESS FOR THIS PATIENT IS [address]. SHRUTHI ALSO SAID FOR HOME HEALTH USE [facility] [phone] OR [facility] [phone] OR [facility] [phone]. WAITING FOR CALL BACK FROM TATIANA FIRST.
--- NOTE | 2018-04-06 15:30 | NUR ---
PICTURES OF THE WOUNDS HAS BEEN TAKEN, DRESSING CHANGED PER MD ORDER. PT TOLERATED WELL.
[2018-04-06 16:00] VITALS: BP 120/80
--- NOTE | 2018-04-06 16:05 | NUR ---
CALLED SHRUTHI FROM [facility] AND INFORMED HER THAT I HAVEN'T HEARD BACK FROM [facility] [facility]. SHE SAID TO TRY [email or web address], . I CALLED THEM AND SPOKE WITH CASTILLO, MACHINE STACKER. I FAXED HER THE ORDER, H&P, MAR, LABS AND FACE SHEET TO HER AT [phone]. SHE SAID THEY CAN ALSO PROVIDE THE HOME HEALTH NURSE. AWAITING CALL BACK.
--- NOTE | 2018-04-06 16:54 | NUR ---
RECEIVED A CALL FROM CRISSY FROM [employer] THEY RECEIVED THE AUTH FROM SHRUTHI FROM [facility] AND THEY WILL SEE THE PATIENT TOMORROW AND THEY WILL PROVIDE THE NURSE. PHONE FOR [employer] IS [phone], I CALLED TATIANA FROM [employer] [facility] AND TOLD HIM THAT [employer] WILL TAKE THIS PATIENT. ELDER MENDIETABETA TESTER NURSE AWARE. I SPOKE EARLIER WITH IRENA, SUPPLY CHAIN SPECIALIST. PHONE [phone]. HE SAID THAT HIS NIECE MELINA IS THERE AND CAN BE TAUGHT TO GIVE THE ANTIBIOTIC.
--- NOTE | 2018-04-06 17:14 | NUR ---
CALLED [phone] PT'S ROOMMATE/CAREGIVER FOR BATHHOUSE KEEPER, NO ONE ANSWERING, LEFT A MESSAGE AND CALL BACK NUMBER.
--- NOTE | 2018-04-06 19:30 | NUR ---
SPOKE WITH DR CARLSON, MADE HIM AWARE THAT PT'S CAREGIVER IRENA IS NOT PICKING UP PHONE CALLS AND HAS NOT CALLING US BACK ABOUT PICKING PT UP. PT MIGHT STAY IN THE HOSP TILL TOMORROW MORNING. WILL KEEPING TRYING TO CALL. DR CARLSON SAID IT'S OK.
--- NOTE | 2018-04-06 19:30 | NUR ---
ENDORSED PT TO DEDICATED INTERMODAL TRUCK DRIVER RN, PT IN STABLE CONDITION.
[2018-04-06 20:00] VITALS: BP 143/90
--- NOTE | 2018-04-06 20:00 | NUR ---
VITAL SIGNS TAKEN AND TOLERATED WELL. NO S/S OF RESPIRATORY DISTRESS OR DISCOMFORT NOTED AT THIS TIME. WILL CONTINUE TO MONITOR.
[2018-04-06] MEDS: traZODone 50 MG TAB PO SCH (20:53)
--- NOTE | 2018-04-06 20:58 | NUR ---
SCHEDULED MEDICATION GIVEN AND TOLERATED WELL. PT C/O PAIN 10/29 WILL MEDICATE WITH TRAMADOL. NO S/S OF RESPIRATORY DISTRESS OR DISCOMFORT NOTED AT THIS TIME. WILL CONTINUE TO MONITOR.
--- NOTE | 2018-04-06 21:05 | NUR ---
PAIN MEDICATION ADMINISTERED AND TOLERATED WELL. NO S/S OF RESPIRATORY DISTRESS OR DISCOMFORT NOTED AT THIS TIME. WILL CONTINUE TO MONITOR.
--- NOTE | 2018-04-06 22:18 | NUR ---
PT CONTINUES TO C/O PAIN THAT IS INCREASING. NORCO GIVEN FOR BACK PAIN. PT TOLERATED WELL. NO S/S OF RESPIRATORY DISTRESS OR DISCOMFORT NOTED AT THIS TIME. WILL CONTINUE TO MONITOR.
[2018-04-07] VITALS: BP 107/74
--- NOTE | 2018-04-07 | NUR ---
VITAL SIGNS TAKEN AND TOLERATED WELL. NO S/S OF RESPIRATORY DISTRESS OR DISCOMFORT NOTED AT THIS TIME. WILL CONTINUE TO MONITOR.
[2018-04-07] MEDS: HYDROcodone/APAP 5/325 MG 1 TAB TAB PO PRN ×2 (01:50→09:22)
[2018-04-07] MEDS: Z-GUARD PASTE TP SCH ×2 (01:50→12:27)
[2018-04-07] MEDS: HYDRAGUARD CREAM TP SCH ×2 (01:50→12:27)
--- NOTE | 2018-04-07 01:50 | NUR ---
PT CONTINUES TO C/O BACK PAIN 11/28. ADMINISTERED NORCO AND PT TOLERATED WELL. NO S/S OF RESPIRATORY DISTRESS OR DISCOMFORT NOTED AT THIS TIME. WILL CONTINUE TO MONITOR.
[2018-04-07] MEDS: NACL 0.9% 1,000 ML IV SCH (01:51)
--- NOTE | 2018-04-07 04:00 | NUR ---
PT CONTINUES TO SLEEP IN BED. NO S/S OF RESPIRATORY DISTRESS OR DISCOMFORT NOTED AT THIS TIME. WILL CONTINUE TO MONITOR.
--- NOTE | 2018-04-07 06:00 | NUR ---
PT CONTINUES TO SLEEP IN BED. NO S/S OF RESPIRATORY DISTRESS OR DISCOMFORT NOTED AT THIS TIME. WILL CONTINUE TO MONITOR.
[2018-04-07] MEDS: PANTOPRAZOLE 40 MG TABEC PO SCH (06:20)
--- NOTE | 2018-04-07 06:20 | NUR ---
SCHEDULED MEDICATION PROTONIX GIVEN AND TOLERATED WELL. NO S/S OF RESPIRATORY DISTRESS OR DISCOMFORT NOTED AT THIS TIME. WILL CONTINUE TO MONITOR.
--- NOTE | 2018-04-07 07:29 | NUR ---
ENDORSED PT CARE TO DAY SHIFT NURSE NERIS FOR CONTINUITY OF CARE.
--- NOTE | 2018-04-07 07:30 | NUR ---
RECEIVED REPORT FROM IT ARCHITECT NURSE, PT IS AAOX3, PT IS WHEELCHAIR BOUND, PT HAS PICC LINE ON RIGHT UPPER ARM, PATENT, INTACT, FLUSHING WELL, PT IS ON ROOM AIR, PT HAS SACRAL WOUND, DRESSING IS DRY AND INTACT AT THIS TIME, PT HAS SUPRAPUBIC CATHETER, 100ML CLEAR/YELLOW URINE, NO S/S OF RESPIRATORY DISTRESS OR DISCOMFORT NOTED, DISCUSSED PLAN OF CARE WITH PT, PT VERBALIZED UNDERSTANDING, SAFETY/FALL PRECAUTIONS ARE IN PLACE, CALL LIGHT WITHIN REACH, WILL CONTINUE TO MONITOR.
[2018-04-07 08:00] VITALS: BP 138/90
--- NOTE | 2018-04-07 08:27 | NUR ---
I CALLED THE PATIENT'S CAREGIVER IRENA AT [phone] AND I DID SPEAK TO HIM. I LET HIM KNOW THE PATIENT WAS DISCHARGED AND I WAS CALLING TO ASK WHAT TIME HE WOULD BE ABLE TO PICK HIM UP. IRENA SAID HE WOULD HAVE A SIGN BOARD ERECTOR PICK HIM UP HIS NAME IS ALSO (KADE) BECAUSE HE DOES NOT DRIVE. IRENA SAID IT WOULD BE AROUND 12PM.
[2018-04-07] MEDS: metroNIDAZOLE 500 MG TAB PO SCH (09:22)
[2018-04-07] MEDS: ZINC SULF 220 MG CAP PO SCH (09:22)
[2018-04-07] MEDS: LINEZOLID 600 MG TAB PO SCH (09:23)
[2018-04-07] MEDS: ASCORBIC ACID 500 MG TAB PO SCH (09:23)
[2018-04-07] MEDS: LACTOBACILLUS RHAMNOSUS GG 1 EACH CAP PO SCH (09:24)
[2018-04-07] MEDS: cefTRIAXone 2,000 MG in DEXTROSE 5% 100 ML IV SCH (09:24)
--- NOTE | 2018-04-07 09:26 | NUR ---
PATIENT SCHEDULED MEDS GIVEN. PATIENT TOLERATED THEM WELL. PATIENT ALSO COMPLAINED OF 7/10 PAIN SO NORCO WAS ALSO GIVEN. WILL CONTINUE TO MONITOR FOR PAIN MED EFFECTIVENESS. ALL NEEDS MET AT THIS TIME. CALL LIGHT WITHIN REACH. WILL ROUND FREQUENTLY.
--- NOTE | 2018-04-07 09:58 | NUR ---
I CALLED [facility] AND SPOKE TO JOSE, I LET HER KNOW I WAS CALLING TO NOTIFY HER THAT THE PATIENT WOULD BE DISCHARGED TODAY AT NOON BUT WOULD BE NEEDING HOME HEALTH FOR IV ABX AND PO ABX. I LET HER KNOW THE PATIENT DID GET HIS DAILY DOSE OF IV ABX TODAY. JOSE SAID VERBALIZED UNDERSTANDING AND SAID SHE WOULD HAVE SOMEONE CALL BACK TO CHECK FOR AN UPDATE LATER TODAY.
--- NOTE | 2018-04-07 10:24 | NUR ---
REASSESSED PATIENT ON PAIN MED EFFECTIVENESS. PATIENT STATES PAIN WAS REDUCED TO 1/10. ALL NEEDS MET AT THIS TIME. WILL ROUND FREQUENTLY.
--- NOTE | 2018-04-07 12:18 | NUR ---
PATIENT EATING LUNCH IN BED. ALL NEEDS MET AT THIS TIME. WILL CONTINUE TO ROUND FREQUENTLY.
--- NOTE | 2018-04-07 14:00 | NUR ---
PATIENT DISCHARGE INSTRUCTIONS GIVEN TO . HOME HEALTH PHONE # GIVEN TO . PICC LINE LEFT IN PLACE. SUPRAPUBIC CATHETER IN PLACE. WOUND CARE SUPPLIES GIVEN TO . PATIENT STABLE UPON DISCHARGE. Addendum: 04/07/18 at 1419 by Kelly Arriaga RN SISTERS NAME IS MELINA AND HER PHONE NUMBER IS [phone].
--- NOTE | 2018-04-09 14:30 | NUR ---
Painter Decorator Note: I was instructed by Director Cara to schedule an appointment for patient with pcp Reyes Herrera. I called and spoke with Maame from 's office and made an appointment, tomorrow 04/10/18 at 9am. I called and spoke with patients caregiver Franco to provide him with appointment information. Franco will take patient to pcp's office tomorrow.
== END 2018-04-07 14:00 | disposition home health service (06) | DRG 720 ==
LOC: MED 17:19 → MTU 19:29
PROVIDERS: ADMIT Preventive Medicine Preventive Medicine/Occupational Environmental Medicine; ATTEND Preventive Medicine Preventive Medicine/Occupational Environmental Medicine
DX: A41.9 Sepsis, unspecified organism (principal); N17.0 Acute kidney failure with tubular necrosis; L89.154 Pressure ulcer of sacral region, stage 4; R53.2 Functional quadriplegia; M86.651 Other chronic osteomyelitis, right thigh; E86.0 Dehydration; B96.89 Other specified bacterial agents as the cause of diseases classified elsewhere; G80.9 Cerebral palsy, unspecified; D64.9 Anemia, unspecified; K44.9 Diaphragmatic hernia without obstruction or gangrene; K56.41 Fecal impaction; N13.6 Pyonephrosis; T36.8X5A Adverse effect of other systemic antibiotics, initial encounter; Z16.21 Resistance to vancomycin; J45.909 Unspecified asthma, uncomplicated; N20.0 Calculus of kidney; N39.0 Urinary tract infection, site not specified; B95.2 Enterococcus as the cause of diseases classified elsewhere; Z88.1 Allergy status to other antibiotic agents; Z79.899 Other long term (current) drug therapy; Y92.89 Other specified places as the place of occurrence of the external cause
CPT/HCPCS: 36415; 70450; 71045; 80048; 80053; 81001; 82150; 82550; 83036; 83690; 83735; 84100; 84439; 84443; 84484; 85025; 85610; 85651; 85730; 86140; 87040; 87070; 87081; 87086; 87186; 94640; 96361; 96372; 96374; 96375; 99285; J0696; J1200; J1644; J2405; J2550; J2765; J3490; J7030; J7060; J7620; Q0092

== ENCOUNTER 2018-05-27 17:04 | Emergency (ER) | payer MEDICAID ==
[~2018-05-27] VITALS: Ht 167.6 cm; Wt 76.2 kg
[2018-05-27 17:15] VITALS: BP 138/88
--- NOTE | 2018-05-27 17:56 | NUR ---
PT AMBULATES TO BED 9
--- NOTE | 2018-05-27 18:14 | NUR ---
Patient being evaluated by physician at bedside.
--- NOTE | 2018-05-27 18:40 | NUR ---
pulled PICC line ---intact pressure dressing applied by
--- NOTE | 2018-05-27 18:40 | NUR ---
PATIENT PRESENTS TO ED WITH brought in by county home demonstrator --stated [pt completed antibiotic course requesting picc line removal . DENIES N/V/D; SKIN IS PINK/WARM/DRY;; LUNGS CLEAR BL; HR EVEN AND REGULAR; PT DENIES ANY FEVER, CP, SOB, OR COUGH AT THIS TIME; PATIENT STATES PAIN OF 0/10 AT THIS TIME; VSS; PATIENT POSITIONED FOR COMFORT; HOB ELEVATED; BEDRAILS UP X2; BED DOWN. ER MD MADE AWARE OF PT STATUS.
[2018-05-27 18:41] VITALS: BP 138/88
--- NOTE | 2018-05-27 18:41 | NUR ---
Patient discharged with v/s stable. Written and verbal after care instructions given and explained. Patient verbalized understanding. Wheel Chair Assisted with by caregiver. All questions addressed prior to discharge. Advised to follow up with PMD.
== END 2018-05-27 18:41 | disposition home or self-care (01) ==
LOC: MED 17:04
DX: Z45.2 Encounter for adjustment and management of vascular access device (principal); R03.0 Elevated blood-pressure reading, without diagnosis of hypertension; J45.909 Unspecified asthma, uncomplicated; Z88.1 Allergy status to other antibiotic agents; Z88.8 Allergy status to other drugs, medicaments and biological substances; Z79.2 Long term (current) use of antibiotics; Z79.899 Other long term (current) drug therapy; Z79.891 Long term (current) use of opiate analgesic; Z99.3 Dependence on wheelchair
CPT/HCPCS: 99281

== ENCOUNTER 2018-07-24 13:10 | Emergency (ER) | payer MEDICAID ==
[~2018-07-24] VITALS: Ht 162.6 cm; Wt 63.5 kg
[~2018-07-24 13:10] MED LIST changes: -TRAZ-370 PO; +TRAZ-466 PO
--- NOTE | 2018-07-24 13:10 | NUR ---
PT BIBA FROM WITH C/O LEAK TO SUPRAPUBIC CATHETER X 1 WEEK. SUPRAPUBIC SITE NOTED WITHOUT S/S OF INFECTION BUT WITH URINE LEAKING. CATHETER BAG NOTED WITH DARK HUMA COLOR URINE WITH SEDIMENT. PT REPORTS MILD PAIN TO CATHETER SITE. DENIES N/V/D, FEVER AT HOME. PT PLACED ON CM/PULSE OX. PENDING MD LOYA
[2018-07-24 13:13] VITALS: BP 119/80
--- NOTE | 2018-07-24 13:18 | NUR ---
Triage completed, bedded in ED 7.
--- NOTE | 2018-07-24 14:29 | NUR ---
SUPRAPUBIC CATHETER CHANGED PER ORDER.
--- NOTE | 2018-07-24 16:50 | NUR ---
NO SOB OR ANY ACUTE RESPIRATORY DISTRESS NOTED. DRAINING CLEAR YELLOW URINE VIA CATHETER. NO C/O PAIN AT THIS TIME. PT WILL BE GIVEN RIDE VIA [employer] TRANSPORT NCLC FOR DISCHARGE HOME. PT STATED HE HAS SOMEBODY AT HOME TO RECEIVE.
--- NOTE | 2018-07-24 17:04 | NUR ---
Patient discharged with v/s stable. Written and verbal after care instructions given and explained. Patient verbalized understanding. All questions addressed prior to discharge. Advised to follow up with PMD. [facility] transport given to go back home.
[2018-07-24 17:06] VITALS: BP 110/75
== END 2018-07-24 17:04 | disposition home or self-care (01) ==
LOC: MED 13:10
DX: T83.038A Leakage of other urinary catheter, initial encounter (principal); N39.0 Urinary tract infection, site not specified; J45.909 Unspecified asthma, uncomplicated; G80.9 Cerebral palsy, unspecified; Z88.1 Allergy status to other antibiotic agents; Z88.8 Allergy status to other drugs, medicaments and biological substances; Z79.2 Long term (current) use of antibiotics; Z79.899 Other long term (current) drug therapy
CPT/HCPCS: 51702; 99284

== ENCOUNTER 2018-08-01 13:10 | Inpatient (IN) | payer MEDICAID ==
[~2018-08-01] VITALS: Ht 162.6 cm; Wt 49.9 kg
[2018-08-01 13:25] VITALS: BP 115/65
--- NOTE | 2018-08-01 13:31 | NUR ---
PAULO. PATIENT PRESENTS TO ED WITH RIGHT ULCER HIP PAIN. PATIENT STATES PAIN OF 8/10, AT THIS TIME. SKIN IS PINK/WARM/MOIST AAOX4. OPEN WOUND TO L LOWER BUTTOCKS. PATIENT POSITIONED FOR COMFORT; HOB ELEVATED; BEDRAILS UP X2; BED DOWN. ER MD MADE AWARE OF PT STATUS.
[2018-08-01] MEDS ORDERED: NACL 0.9% 1,000 ML IV SCH (13:51)
[2018-08-01] MEDS ORDERED: KETOROLAC 30 MG/ML VIAL IVP ONE (13:55)
[2018-08-01 14:19] LABS: BASOPHILS % (AUTO) 0.7 % (0.0-2.0); EOSINOPHILS # (AUTO) 0.1 K/uL (0-0.4); EOSINOPHILS % (AUTO) 2.1 % (0.0-4.0); HEMATOCRIT 33.8 % (36-52); HEMOGLOBIN 10.7 g/dL (12.0-18.0); LYMPHOCYTES % (AUTO) 14.8 % (20.5-51.1); MEAN CORPUSCULAR HEMOGLOBIN 26 pg (27-31); MEAN CORPUSCULAR HGB CONC 32 g/dL (33-37); MEAN CORPUSCULAR VOLUME 82.5 fL (80-94); MONOCYTES # (AUTO) 0.4 K/uL (0.8-1.0); MONOCYTES % (AUTO) 6.1 % (1.7-9.3); NEUTROPHILS # (AUTO) 5.2 K/uL (1.8-7.7); NEUTROPHILS % (AUTO) 76.3 % (42.2-75.2); PLATELET COUNT (AUTO) 697 K/uL (140-450); WHITE BLOOD COUNT (AUTO) 6.9 K/uL (4.8-10.8)
[2018-08-01 14:36] LABS: APPEARANCE,URINE CLOUDY (CLEAR); BILIRUBIN,URINE 1+ (NEGATIVE); BLOOD, URINE 2+ (NEGATIVE); COLOR,URINE YELLOW (YELLOW); LEUKOCYTE ESTERASE ,URINE 3+ (NEGATIVE); NITRITE, URINE NEGATIVE (NEGATIVE); PH,URINE >=9.0 (5.0-9.0); UGLUCOSE NEGATIVE (NEGATIVE)
[2018-08-01 14:37] LABS: ANION GAP 16.2 (8-16); CARBON DIOXIDE 25.3 mmol/L (21-32); CREATININE 1.2 mg/dL (0.7-1.3); POTASSIUM 3.5 mmol/L (3.5-5.1)
[2018-08-01 14:43] LABS: ALBUMIN 2.8 g/dL (3.4-5.0); TOTAL BILIRUBIN 0.3 mg/dL (0.0-1.0)
[2018-08-01 14:51] LABS: RBC,URINE NONE SEEN /HPF (0-5); WBC,URINE TOO MANY TO COUNT /HPF (0-5)
[2018-08-01 15:08] LABS: PROTHROMBIN TIME 9.9 secs (10.8-13.4)
--- NOTE | 2018-08-01 16:00 | NUR ---
Patient noted to have existing wounds upon arrival to ER. Photos taken of wound and placed in chart. Wound covered with dressing. Physician informed.
--- NOTE | 2018-08-01 16:20 | NUR ---
Patient will be admitted to care of Nury WAN Admited to MED SURG. Will go to [id number] A. Belongings list completed. Report to ANAM KING.
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
[2018-08-01 16:30] VITALS: BP 120/65
--- NOTE | 2018-08-01 18:00 | NUR ---
PATIENT IN NO DISTRESS LAYING IN BED WATCHING TV. WILL CONTINUE TO MONITOR. ATTEMPTED TO CALL PHARMACY FOR ZOSYN BUT THEY ARE NOT HERE ANYMORE
--- NOTE | 2018-08-01 19:27 | NUR ---
ZOSYN NOT GIVEN, NOT AVAILABLE AT THIS TIME. ENDORSED TO PRESIDENT PRACTICING UROLOGIST NURSE. PATIENT HAS NO DIET, PAGED DR CARLSON IF HE WANTS TO ADD DIET. BUT PER HORTENSIA, WOUND CARE NURSE PATIENT MAY NEED WOUND DEBRIDEMENT SO PATIENT MAY NEED TO BE NPO, PATIENT ALSO NEEDS SURGICAL CONSULT. ANAM BRUMFIELD WAS ENDORSED THIS INFORMATION AND WELL TELL DR CARLSON WHEN HE CALLS BACK. ALSO PATIENT HAS NO CODE STATUS, HE SAID HE WANTS TO BE MODIFIED BUT HE IS UNSURE AND NEEDS TO TALK TO THE DOCTOR ABOUT IT FOR MORE INFORMATION. ANAM BRUMFIELD IS AWARE.
--- NOTE | 2018-08-01 19:28 | NUR ---
RECEIVED BEDSIDE REPORT FROM AM NURSE. PATIENT IS AWAKE, ALERT AND ORIENTEDX3. SLURRED SPEECH WITH CEREBRAL PALSY. NO SIGNS OF DISTRESS ON RA. VITALS WNL. SKIN HAS PRESSURE ULCER ON R BUTTOCKS, DRESSING CLEAN, DRY AND INTACT. BLE CONTRACTED. FALL RISK PROTOCOL PLACE. ALLERGY BAND PLACED. MRSA SWAB DONE. PATIENT HAS SUPRAPUBIC CATH, CATHETER IS LEAKING AT THIS TIME. PATIENT IS INCONTINENT. FOR A WOUND BED D/T WOUND. BED IN LOW POSITION. CALL LIGHT WITHIN REACH. WILL CONTINUE TO MONITOR.
[2018-08-01 20:00] VITALS: BP 96/62
[2018-08-01] MEDS ORDERED: ONDANSETRON 4 MG TAB PO PRN (20:20)
[2018-08-01] MEDS ORDERED: LORazepam 2 MG/ML VIAL IVP PRN (20:20)
[2018-08-01] MEDS ORDERED: ACETAMINOPHEN 325 MG TAB PO PRN (20:20)
[2018-08-01] MEDS ORDERED: traMADol 50 MG TAB PO PRN (20:20)
[2018-08-01] MEDS ORDERED: ALBUTEROL HFA MDI 90 MCG/ACTUATION 8 GM INH PRN (20:20)
[2018-08-01] MEDS ORDERED: PIPERACILLIN/TAZOBACTAM 3.375 GM VIAL IV ONE (20:41)
[2018-08-01] MEDS: PIPER/TAZO 3.375GM/D5W PREMIX 50 ML IV SCH (21:20)
--- NOTE | 2018-08-01 21:20 | NUR ---
Nury SAHU CONTACTED AND HE SAID WILL PUT IN THE ORDERS.NO DIET RECEIVED, NO IVF DOSE AND FREQ. RECEIVED, INFORMED HIM OF THE CODE STATUS THAT PT WANTS IT MODIFIED. HE IS AWARE THAT PT HAS LEAKING SUPRAPUBIC CATHETER, AND HE WILL SEE IT MICHELLE.
[2018-08-01] MEDS: HYDROcodone/APAP 5/325 MG 1 TAB TAB PO PRN (21:22)
[2018-08-01] MEDS: traZODone 50 MG TAB PO SCH (21:23)
[2018-08-01] MEDS ORDERED: ALBUTEROL SULFATE/IPRATROPIU 3 ML SOL IH ONE (21:31)
--- NOTE | 2018-08-01 21:49 | NUR ---
TALKED TO DR. CARLSON, HE SAID TO CONTACT SURGERY FOR CONSULT, RE: WOUND DEBRIDEMENT ON R BUTTOCK; AND TO CONTACT UROLOGISTFOR CATHETER REPLACEMENT,RE: LEAKING CATHETER. HE WILL SEE PT MICHELLE
--- NOTE | 2018-08-01 22:14 | NUR ---
DR. FREEMAN SAW PT, AND INFORMED HIM THAT I JUST GAVE THE ZOSYN 3.375 MG AND THAT I HAVE ANOTHER DOSE AT 12 MIDNIGHT. SHOULD I GIVE THE 12 MIDNIGHT? HE SAID THAT TO GIVE THE 12 MIDNIGHT EVEN LESS THAN 6 HRS AGO.
--- NOTE | 2018-08-01 22:15 | NUR ---
TALKED TO DR. CARLSON ABOUT THE CONSULTS RE: UROLOGY AND SURGERY FOR WOUND R BUTTOCK DEBRIDEMENT. HE IS AWARE OF THE TO REFERRAL. HE SAID HE WILL SEE PT AND DO IT TMRW.
[2018-08-02] MEDS ORDERED: PIPERACILLIN/TAZOBACTAM 3.375 GM VIAL IV ONE ×2 (00:33→06:28)
[2018-08-02] MEDS: PIPER/TAZO 3.375GM/D5W PREMIX 50 ML IV SCH ×4 (00:50→12:57)
--- NOTE | 2018-08-02 02:00 | NUR ---
PT TURNED Q2, CLEANED , URINE STILL LEAKING. WILL CONTINUE TO MONITOR
[2018-08-02] MEDS: HYDROcodone/APAP 5/325 MG 1 TAB TAB PO PRN ×3 (03:55→23:06)
--- NOTE | 2018-08-02 07:20 | NUR ---
RECEIVED BEDSIDE REPORT FROM POWER SAW OPERATOR NURSE. PT IS AAOX4. NO S/S OF DISTRESS ON RM AIR. IV NOTED TO LEFT AC, 22 G, DRESSING TO RIGHT BUTT IS DRY AND INTACT. WILL CHANGE PER WOUND CARE NURSE'S INSTRUCTION. WOUND CARE AIR BED WORKING. HX CEREBRAL PALSY, BLE CONTRACTED. FALL RISK PROTOCOL IN PLACE. SCD IN PLACE. SUPRAPUBIC CATH NOTED, CATHETER IS LEAKING, FOUL ODOR FROM URINE. URINE APPEARS TO BE CLOUDY YELLOW. PLACE DRESSING AT SUPRAPUBIC CATH SITE. BED IN LOWEST POSITION. CALL LIGHT WITHIN REACH. WILL CONTINUE TO MONITOR.
[2018-08-02 07:24] LABS: BASOPHILS # (AUTO) 0.1 K/uL (0.00-0.22); BASOPHILS % (AUTO) 0.7 % (0.0-2.0); EOSINOPHILS # (AUTO) 0.3 K/uL (0-0.4); EOSINOPHILS % (AUTO) 4.4 % (0.0-4.0); HEMATOCRIT 29.1 % (36-52); HEMOGLOBIN 9.3 g/dL (12.0-18.0); LYMPHOCYTES # (AUTO) 1.3 K/uL (2.0-11.5); LYMPHOCYTES % (AUTO) 18.6 % (20.5-51.1); MEAN CORPUSCULAR HEMOGLOBIN 27 pg (27-31); MEAN CORPUSCULAR HGB CONC 32 g/dL (33-37); MEAN CORPUSCULAR VOLUME 82.8 fL (80-94); MONOCYTES # (AUTO) 0.5 K/uL (0.8-1.0); MONOCYTES % (AUTO) 6.6 % (1.7-9.3); NEUTROPHILS # (AUTO) 4.9 K/uL (1.8-7.7); NEUTROPHILS % (AUTO) 69.7 % (42.2-75.2); PLATELET COUNT (AUTO) 579 K/uL (140-450); RED BLOOD CELL COUNT(AUTO) 3.52 MIL/uL (4.20-6.10); RED CELL DISTRIBUTION WIDTH 19.7 % (11.6-13.7)
--- NOTE | 2018-08-02 07:25 | NUR ---
ENDORSED TO AMS SHIFT FOR CONTINUITY OF CARE. PT STILL WITH LEAKING CATHETER (UROLOGIST) AND WOUND DEBRIDEMENT (SURGEON). STILL AWAITING FOR DR. KELTON CARLSON'S REFERRAL TO [facility]. NEXT SHIFT AWARE
[2018-08-02] MEDS ORDERED: NON-FORMULARY ITEM (Omeprazole 40 MG) PO SCH (07:30)
[2018-08-02 07:50] LABS: ANION GAP 16.3 (8-16); CARBON DIOXIDE 24.1 mmol/L (21-32); CREATININE 1.6 mg/dL (0.7-1.3); POTASSIUM 3.4 mmol/L (3.5-5.1)
[2018-08-02 08:00] VITALS: BP 98/56
--- NOTE | 2018-08-02 08:00 | NUR ---
SCD IS ON, PT WAS REPOSITIONED.
--- NOTE | 2018-08-02 08:16 | NUR ---
PATIENT HAS BEEN SCREENED AND CATEGORIZED HIGH NUTRITION RISK. PATIENT WILL BE SEEN WITHIN 1-2 DAYS OF ADMISSION. 08/02/18-08/03/[address]
[2018-08-02] MEDS ORDERED: metroNIDAZOLE 250 MG TAB PO SCH (09:00)
[2018-08-02] MEDS ORDERED: OMEGA PO SCH (09:00)
[2018-08-02] MEDS ORDERED: FATTY ACIDS PO SCH (09:00)
[2018-08-02] MEDS ORDERED: cefTRIAXone 2,000 MG VIAL IV SCH (09:00)
[2018-08-02] MEDS ORDERED: FISH OIL PO SCH (09:00)
[2018-08-02] MEDS ORDERED: NON-FORMULARY ITEM (Lactulose 30 ML) PO SCH (09:00)
[2018-08-02] MEDS: LACTULOSE 20 GM/30 ML UDC PO SCH (09:13)
[2018-08-02] MEDS: ZINC SULF 220 MG CAP PO SCH (09:14)
[2018-08-02] MEDS: PANTOPRAZOLE 40 MG TABEC PO SCH (09:14)
[2018-08-02] MEDS: ASCORBIC ACID 500 MG TAB PO SCH (09:14)
[2018-08-02] MEDS: LINEZOLID 600MG PREMIX 300 ML IV SCH ×2 (09:14→20:06)
[2018-08-02] MEDS ORDERED: POTASSIUM CHLORIDE 10 MEQ TABER PO SCH (10:00)
[2018-08-02] MEDS: ALBUTEROL SULFATE/IPRATROPIU 3 ML SOL IH PRN ×2 (10:01→20:55)
--- NOTE | 2018-08-02 10:40 | NUR ---
BED BATH GIVEN BY AGRICULTURAL AGENT, PT WAS REPOSITIONED
--- NOTE | 2018-08-02 14:30 | NUR ---
DRESSING CHANGED, CLEANED WITH NS, PATTED DRY, WOUND CULTURE DONE, PACKED WET TO DRY QD, COVERED WITH ABD PAD. PIC TAKEN FOR SACRAL AREA. Addendum: 08/02/18 at 1648 by Cirilo Renee RN PT WAS REPOSITIONED
--- NOTE | 2018-08-02 14:59 | NUR ---
08/02/18 RD INITIAL ASSESSMENT COMPLETED PLEASE REFER TO NUTRITION ASSESSMENT UNDER CARE ACTIVITY FOR ESTIMATED NUTRITIONAL NEEDS. 1. RECOMMEND SWALLOW EVALUATION 2. RECOMMEND RENAL DIET WITH TEXTURE SUGGESTED BY SWALLOW EVALUATION 3. RECOMMEND NEPRO BID 4. RD TO FOLLOW-UP 2-3 DAYS, HIGH RISK TINY MEHTA, RD
[2018-08-02] MEDS ORDERED: CLINICAL MONITORING MC PRN (15:20)
[2018-08-02] MEDS: Z-GUARD PASTE TP SCH (15:26)
--- NOTE | 2018-08-02 15:26 | NUR ---
APPLIED Z GUARD TO SACRAL AND PERINEAL AREA. APPLIED OPTIFOAM TO SACRAL.
[2018-08-02 16:00] VITALS: BP 97/69
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
[2018-08-02] MEDS ORDERED: PIPER/TAZO 3.375GM/D5W PREMIX 50 ML IV SCH (18:00)
[2018-08-02] MEDS: PIPER/TAZO 2.25GM/D5W PREMIX 50 ML IV SCH (18:59)
--- NOTE | 2018-08-02 19:25 | NUR ---
REPORT GIVEN TO CLINICAL GENETICIST RN. PT IN STABLE CONDITION.
--- NOTE | 2018-08-02 19:35 | NUR ---
RECEIVED PATIENT AWAKE LYING ON BED. RESPIRATION EVEN AND UNLABORED. EXPLAINED PLAN OF CARE. FALL PRECAUTION APPLIED. CALL LIGHTS WITHIN REACH.
[2018-08-02] MEDS: traZODone 50 MG TAB PO SCH (20:05)
[2018-08-03] VITALS: BP 104/61
--- NOTE | 2018-08-03 | NUR ---
V/S TAKEN AND RECORDED. SCHEDULE MEDICATION GIVEN. TURNED AND REPOSITIONED. NO S/S OF DISTRESS NOTED.
--- NOTE | 2018-08-03 | NUR ---
V/S TAKEN AND RECORDED. NO S/S OF DISTRESS NOTED. WILL CONTINUE TO MONITOR.
[2018-08-03] MEDS: Z-GUARD PASTE TP SCH ×2 (01:31→12:53)
--- NOTE | 2018-08-03 02:00 | NUR ---
TURNED AND REPOSITIONED. NO S/S OF DISTRESS NOTED.
--- NOTE | 2018-08-03 04:30 | NUR ---
CLEANED AND CHANGED PATIENT LINEN AND PADS. DRESSING CHANGED. REPOSITIONED AND TURNED. ALL NEEDS ATTENDED. WILL CONTINUE TO MONITOR.
[2018-08-03] MEDS: PIPER/TAZO 2.25GM/D5W PREMIX 50 ML IV SCH ×5 (06:48→23:37)
[2018-08-03] MEDS: HYDROcodone/APAP 5/325 MG 1 TAB TAB PO PRN ×5 (06:50→21:59)
[2018-08-03 06:52] LABS: ANION GAP 12.7 (8-16); CREATININE 1.5 mg/dL (0.7-1.3); POTASSIUM 3.7 mmol/L (3.5-5.1)
[2018-08-03 07:06] LABS: BASOPHILS # (AUTO) 0.1 K/uL (0.00-0.22); BASOPHILS % (AUTO) 0.7 % (0.0-2.0); EOSINOPHILS # (AUTO) 0.5 K/uL (0-0.4); EOSINOPHILS % (AUTO) 5.9 % (0.0-4.0); HEMOGLOBIN 8.9 g/dL (12.0-18.0); LYMPHOCYTES # (AUTO) 1.5 K/uL (2.0-11.5); LYMPHOCYTES % (AUTO) 17.3 % (20.5-51.1); MEAN CORPUSCULAR HEMOGLOBIN 26 pg (27-31); MEAN CORPUSCULAR HGB CONC 32 g/dL (33-37); MEAN CORPUSCULAR VOLUME 82.4 fL (80-94); MONOCYTES # (AUTO) 0.5 K/uL (0.8-1.0); MONOCYTES % (AUTO) 6.4 % (1.7-9.3); NEUTROPHILS # (AUTO) 5.9 K/uL (1.8-7.7); NEUTROPHILS % (AUTO) 69.7 % (42.2-75.2); PLATELET COUNT (AUTO) 560 K/uL (140-450); RED BLOOD CELL COUNT(AUTO) 3.39 MIL/uL (4.20-6.10); RED CELL DISTRIBUTION WIDTH 19.9 % (11.6-13.7); WHITE BLOOD COUNT (AUTO) 8.5 K/uL (4.8-10.8)
--- NOTE | 2018-08-03 07:14 | NUR ---
RECEIVED BEDSIDE REPORT FROM ANAM SALEEM. PT STABLE, AWAKE, AND ALERT. NO SIGNS OF DISTRESS NOTED. DENIES PAIN OR SOB. NO REDNESS, SWELLING, OR INFLAMMATION NOTED ON IV SITE. BED IN LOWEST POSITION. CALL REESE WITHIN REACH. SAFETY MEASURES IN PLACE. PLAN OF CARE REVIEWED.
--- NOTE | 2018-08-03 07:15 | NUR ---
GAVE REPORT TO AM RN SHIFT AT BEDSIDE. CALL LIGHT WITHIN REACH. PATIENT IN STABLE CONDITION.
[2018-08-03 08:00] VITALS: BP 96/63
[2018-08-03] MEDS: LACTULOSE 20 GM/30 ML UDC PO SCH (10:26)
[2018-08-03] MEDS: ZINC SULF 220 MG CAP PO SCH (10:26)
[2018-08-03] MEDS: PANTOPRAZOLE 40 MG TABEC PO SCH (10:26)
[2018-08-03] MEDS: ASCORBIC ACID 500 MG TAB PO SCH (10:27)
[2018-08-03] MEDS: LINEZOLID 600MG PREMIX 300 ML IV SCH ×2 (10:29→20:51)
--- NOTE | 2018-08-03 10:29 | NUR ---
ADMINISTERED SCHEDULED MEDICATIONS. PT TOLERATED WELL.
[2018-08-03] MEDS: DEXT 5% / NACL 0.45% 1,000 ML IV SCH ×2 (10:32→19:15)
--- NOTE | 2018-08-03 12:54 | NUR ---
ADMINISTERED SCHEDULED MEDICATIONS. PT TOLERATED WELL. NO OTHER NEEDS AT THIS TIME.
--- NOTE | 2018-08-03 13:15 | NUR ---
WOUND CARE EVALUATION NOTE: REASON FOR EVALUATION: MULTIPLE WOUNDS SKIN ASSESSMENT DONE WITH THIS 52 Y/O MALE PT ADMITTED TO [facility] WITH INITIAL DX OF RIGHT HIP PAIN. PT. ADMITTED WITH PRESSURE INJURY TO SACRALCOCCYX AND RIGHT ISCHIUM. PAST MEDICAL HX INCLUDES CEREBRAL PALSY AND ASTHMA. ALL ABOVE INFORMATION OBTAINED FROM ADMISSION H&P. PT IS AWAKE. SKIN IS WARM AND DRY, MULTIPLE SURGICAL OLD HEALED SCARS TO HIPS AND KNEES. SUPRAPUBIC CATHETER IN PLACE WITH MODERATE AMOUNT CLEAR YELLOW URINE OBSERVED. 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 PLAN OF CARE DISCUSSED WITH PRIMARY RN AND PT. PT. VERBALIZING UNDERSTANDING. INTEGUMENTARY: -MULTIPLE HEALED SURGICAL SCARS TO BILATERAL EXTREMITIES -SUPRAPUBIC OSTOMY SADA-SKIN DRY AND CLEAN -RIGHT ISCHIUM EXTENDED TO RIGHT BUTTOCK UN-STAGEABLE PRESSURE , 12X6 CM, WOUND BED WITH 50 % GREEN SLOUGH COVERED TO WOUND BED AND 50% OF RED GRANULATING TISSUE. MODERATE AMOUNT OF PURULENT DRAINAGE, MILD ODOR, SADA-WOUND SKIN REDNESS EXTENDED TO SACRALCOCCYX SADA-WOUND REDNESS INDICATED FURTHER DAMAGE - SACRALCOCCYX PRESSURE INJURY STAGE 2, 3X1X0.1 CM, SADA-WOUND SKIN DENUDED, IRREGULAR SHAPE, SADA-WOUND REDNESS MERGED WITH PERIANAL IAD, WOUND BED RED AND MOIST,NO ODOR. -INCONTINENT ASSOCIATE DERMATITIS (IAD) REDNESS WITH MULTIPLE EROSIONS: GROINS, PENIS, ANTERIOR AND POSTERIOR SCROTUM EXTENDED TO PERIANAL RECOMMENDATIONS: -SURGEON CONSULT RIGHT ISCHIUM INFECTED PRESSURE INJURY -X-RAY OR BONE SCAN TO RIGHT ISCHIUM TO R/O OSTEOMYELITIS -CLEANSE RIGHT ISCHIUM EXTENDED TO RIGHT BUTTOCK PRESSURE INJURIES WITH WOUND CARE SOLUTIONS, PAT DRY, APPLY ADAPTIC DRESSING TO WOUND BED AND FOLLOWED BY DRY FULL ROLL OF KERLIX JOESPH FAN FOLDED, APPLY Z-GUARD TO SADA-WOUND AND COVER WITH DRY DRESSING CHANGE QD AND PRN IF SOILING. - CLEANSE SACRALCOCCYX PRESSURE INJURIES WITH WOUND CARE SOLUTIONS, PAT DRY, APPLY Z-GUARD AND COVER WITH DRY DRESSING CHANGE QD AND PRN IF SOILING. -APPLY Z-GUARD TO: GROINS, PENIS, ANTERIOR AND POSTERIOR SCROTUM EXTENDED TO PERIANAL BID AND PRN IF SOILING, LEAVE IT OPEN TO AIR -KEEP SKIN DRY AND CLEAN AT ALL TIMES, PLEASE CHECK Q2H AND PRN FOR INCONTINENCY OF BOWEL -OFFLOAD BILATERAL HEELS BY PLACING PILLOWS UNDER CALVES AND KNEES UNLESS OTHERWISE CONTRAINDICATED -PRESSURE REDISTRIBUTION SURFACE THERAPY -TURN AND REPOSITION Q2H, OFFLOAD SACRALCOCCYX AND RIGHT ISCHIUM. -CONTINUE TO FOLLOW RD RECOMMENDATIONS ALL ABOVE RECOMMENDATIONS DISCUSSED WITH PRIMARY RN WILL FOLLOW UP Q7-10 DAYS, PLEASE CONTACT WOUND CARE NURSE FOR ANY QUESTION AND CHANGE OF WOUND CONDITION.
[2018-08-03] MEDS ORDERED: Z-GUARD PASTE TP PRN (13:35)
[2018-08-03] MEDS ORDERED: GAUZE TP PRN (13:35)
--- NOTE | 2018-08-03 15:45 | NUR ---
VITAL SIGNS TAKEN, PT STABLE, AWAKE, AND ALERT. NO SIGNS OF DISTRESS NOTED. NO OTHER NEEDS AT THIS MOMENT.
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
[2018-08-03 16:00] VITALS: BP 93/57
--- NOTE | 2018-08-03 17:40 | NUR ---
DR. FLORES AT THE BEDSIDE.
--- NOTE | 2018-08-03 18:19 | NUR ---
ADMINISTERED SCHEDULED MEDICATIONS. PT TOLERATED WELL.
--- NOTE | 2018-08-03 19:15 | NUR ---
ENDORSED PT TO RN RUHT FOR CONTINUITY OF CARE. PT STABLE, AWAKE, AND ALERT.
--- NOTE | 2018-08-03 19:16 | NUR ---
RECD. RESTING IN BED, AWAKE, A/OX4. RESPIRATION EVEN AND UNLABORED, IV OF D51/2 NS INFUSING AT 100 ML/HR, LEFT AC G22. BILATERAL UPPER AND LOWER EXTREMITIES CONTRACTURES. SACRAL WOUND COVERED WITH DRESSING DRY AND INTACT. SUPRA PUBIC CATHETER CONNECTED TO BAG, DRAINING CLEAR YELLOW URINE. ON BILATERAL LEG SEQUENTIALS. ON WOUND CARE BED. PLAN OF CARE FOR THE SHIFT DISCUSSED. VERBALIZED UNDERSTANDING. DENIES PAIN 0/10.
--- NOTE | 2018-08-03 20:00 | NUR ---
Patient's Plan of Care was discussed and reviewed with HEALTH AND WELLNESS INSTRUCTOR: DANDRE BALLARD.
[2018-08-03] MEDS: traZODone 50 MG TAB PO SCH (21:56)
[2018-08-04] VITALS: BP 95/61
[2018-08-04] MEDS: Z-GUARD PASTE TP SCH ×2 (01:46→13:53)
[2018-08-04] MEDS: HYDROcodone/APAP 5/325 MG 1 TAB TAB PO PRN ×4 (05:03→22:43)
[2018-08-04] MEDS: DEXT 5% / NACL 0.45% 1,000 ML IV SCH ×3 (05:05→15:21)
[2018-08-04] MEDS: PIPER/TAZO 2.25GM/D5W PREMIX 50 ML IV SCH ×3 (05:21→18:11)
[2018-08-04 07:20] LABS: BASOPHILS # (AUTO) 0.1 K/uL (0.00-0.22); BASOPHILS % (AUTO) 0.6 % (0.0-2.0); EOSINOPHILS # (AUTO) 0.7 K/uL (0-0.4); EOSINOPHILS % (AUTO) 7.3 % (0.0-4.0); HEMATOCRIT 24.9 % (36-52); HEMOGLOBIN 7.9 g/dL (12.0-18.0); LYMPHOCYTES # (AUTO) 1.6 K/uL (2.0-11.5); LYMPHOCYTES % (AUTO) 16.5 % (20.5-51.1); MEAN CORPUSCULAR HEMOGLOBIN 26 pg (27-31); MEAN CORPUSCULAR HGB CONC 32 g/dL (33-37); MEAN CORPUSCULAR VOLUME 81.9 fL (80-94); MONOCYTES # (AUTO) 0.6 K/uL (0.8-1.0); MONOCYTES % (AUTO) 6.5 % (1.7-9.3); NEUTROPHILS # (AUTO) 6.5 K/uL (1.8-7.7); NEUTROPHILS % (AUTO) 69.1 % (42.2-75.2); PLATELET COUNT (AUTO) 511 K/uL (140-450); RED BLOOD CELL COUNT(AUTO) 3.04 MIL/uL (4.20-6.10); RED CELL DISTRIBUTION WIDTH 19.5 % (11.6-13.7); WHITE BLOOD COUNT (AUTO) 9.4 K/uL (4.8-10.8)
--- NOTE | 2018-08-04 07:23 | NUR ---
RECEIVED BEDSIDE REPORT FROM HEALTH UNIT SUPERVISOR RN. PT STABLE, AWAKE, AND ALERT. NO SIGNS OF DISTRESS NOTED. DENIES PAIN OR SOB. NO REDNESS, SWELLING, OR INFLAMMATION NOTED ON IV SITE. BED IN LOWEST POSITION. CALL REESE WITHIN REACH. SAFETY MEASURES IN PLACE. PLAN OF CARE REVIEWED.
[2018-08-04 07:27] LABS: MAGNESIUM 1.7 mg/dL (1.8-2.4); PHOSPHORUS 3.3 mg/dL (2.5-4.9)
[2018-08-04 08:00] VITALS: BP 100/69
[2018-08-04 08:07] LABS: ANION GAP 13.3 (8-16); CARBON DIOXIDE 25.4 mmol/L (21-32); CREATININE 1.3 mg/dL (0.7-1.3); POTASSIUM 3.7 mmol/L (3.5-5.1)
--- NOTE | 2018-08-04 10:02 | NUR ---
ADMINISTERED SCHEDULED MEDICATIONS. PT TOLERATED WELL. NO OTHER NEEDS AT THIS TIME. BED IN LOW POSITION, CALL LIGHT WITHIN REACH.
[2018-08-04] MEDS: LACTULOSE 20 GM/30 ML UDC PO SCH (10:16)
[2018-08-04] MEDS: ZINC SULF 220 MG CAP PO SCH (10:17)
[2018-08-04] MEDS: PANTOPRAZOLE 40 MG TABEC PO SCH (10:17)
[2018-08-04] MEDS: ASCORBIC ACID 500 MG TAB PO SCH (10:17)
[2018-08-04] MEDS: LINEZOLID 600MG PREMIX 300 ML IV SCH ×2 (10:18→21:00)
[2018-08-04] MEDS: GAUZE TP SCH (13:53)
--- NOTE | 2018-08-04 14:02 | NUR ---
PT DRESSINGS CHANGED. WOUND EVAL DONE. PT TOLERATED WELL. NO OTHER NEEDS AT THIS TIME. WILL CONTINUE TO MONITOR PT.
[2018-08-04] MEDS ORDERED: MAG SULF 2000 MG/WATER PREMIX 50 ML IV SCH (14:06)
[2018-08-04 16:00] VITALS: BP 107/66
--- NOTE | 2018-08-04 19:49 | NUR ---
ENDORSED PT TO UNIX SYSTEM ADMINISTRATOR FOR CONTINUATION OF CARE. PT IN STABLE CONDITION AT THIS TIME.
--- NOTE | 2018-08-04 19:55 | NUR ---
RECEIVED ENDORSEMENT FROM AM SHIFT RN; PATIENT WATCHING TV, INTRODUCED SELF, UPDATED BOARD. PATIENT A/Ox3, ABLE TO MAKE NEEDS KNOWN, BEDBOUND. NO SOB OR DISTRESS NOTED. IV SITE ON LEFT ANTECUBITAL, 22 GAUGE, INTACT AND PATENT. BILATERAL UPPER AND LOWER EXTREMITIES CONTRACTURES. SACRAL WOUND COVERED WITH DRESSING DRY AND INTACT. SUPRAPUBIC CATHETER CONNECTED TO BAG, DRAINING CLEAR YELLOW URINE. ON BILATERAL LEG SEQUENTIALS. ON WOUND CARE BED. PLAN OF CARE FOR THE SHIFT DISCUSSED. VERBALIZED UNDERSTANDING. BED IN THE LOWEST POSITION, CALL LIGHT WITHIN REACH. INITIAL ASSESSMENT DONE. WILL CONTINUE TO MONITOR.
[2018-08-04] MEDS: traZODone 50 MG TAB PO SCH (21:00)
--- NOTE | 2018-08-04 21:10 | NUR ---
DUE MEDS GIVEN, TOLERATED WELL.
--- NOTE | 2018-08-04 22:30 | NUR ---
PATIENT NOTED TO HAVE A BM AT THIS TIME, BROWN AND LIQUID. LINENS AND CHUX WERE CHANGED. BANDAGE ON RIGHT BUTTOCK CHANGED. REPOSITIONED, COMPLAINED OF 6/10 RIGHT HIP PAIN. WILL MEDICATE ORDERED AND PER PAIN SCALE. WILL CONTINUE TO MONITOR.
[2018-08-05] VITALS: BP 105/63
--- NOTE | 2018-08-05 00:03 | NUR ---
VITALS TAKEN, PATIENT ASLEEP, VISIBLE CHEST RISE AND FALL NOTED.
[2018-08-05] MEDS: PIPER/TAZO 2.25GM/D5W PREMIX 50 ML IV SCH ×2 (00:27→06:54)
[2018-08-05] MEDS: Z-GUARD PASTE TP SCH ×2 (00:28→14:16)
[2018-08-05] MEDS: DEXT 5% / NACL 0.45% 1,000 ML IV SCH (02:10)
--- NOTE | 2018-08-05 02:15 | NUR ---
ROUNDS MADE, NO DISTRESS NOTED.
--- NOTE | 2018-08-05 04:30 | NUR ---
FREQUENT CHECKS MADE, NO SOB OR DISTRESS NOTED.
--- NOTE | 2018-08-05 05:40 | NUR ---
PATIENT NOTED WITH A BM AT THIS TIME, PATIENT CLEANED, LINENS AND CHUX REPLACED. REPOSITIONED PATIENT TO RIGHT SIDE. TOLERATED WELL.
--- NOTE | 2018-08-05 06:40 | NUR ---
PATIENT'S IV SITE WET, STOPPED IVF. WILL ENDORSE IV INSERTION TO AM SHIFT RN.
--- NOTE | 2018-08-05 07:05 | NUR ---
ENDORSED PATIENT TO AM SHIFT RN; PATIENT IN STABLE CONDITION.
--- NOTE | 2018-08-05 07:21 | NUR ---
RECEIVED BEDSIDE REPORT FROM AUTO OVERHAULER RN. PT STABLE, AWAKE, AND ALERT. NO SIGNS OF DISTRESS NOTED. DENIES PAIN OR SOB. NO REDNESS, SWELLING, OR INFLAMMATION NOTED ON IV SITE. BED IN LOWEST POSITION. CALL REESE WITHIN REACH. SAFETY MEASURES IN PLACE. PLAN OF CARE REVIEWED.
[2018-08-05 08:00] VITALS: BP 129/76
--- NOTE | 2018-08-05 08:26 | NUR ---
ADMINISTERED SCHEDULED MEDICATIONS. PT TOLERATED WELL. NO OTHER NEEDS AT THIS TIME. BED IN LOW POSITION, CALL LIGHT WITHIN REACH.
[2018-08-05 08:28] LABS: BASOPHILS # (AUTO) 0.1 K/uL (0.00-0.22); BASOPHILS % (AUTO) 0.8 % (0.0-2.0); EOSINOPHILS # (AUTO) 0.6 K/uL (0-0.4); EOSINOPHILS % (AUTO) 5.7 % (0.0-4.0); HEMATOCRIT 27.4 % (36-52); HEMOGLOBIN 8.6 g/dL (12.0-18.0); LYMPHOCYTES # (AUTO) 1.4 K/uL (2.0-11.5); LYMPHOCYTES % (AUTO) 13.8 % (20.5-51.1); MEAN CORPUSCULAR HEMOGLOBIN 26 pg (27-31); MEAN CORPUSCULAR HGB CONC 32 g/dL (33-37); MEAN CORPUSCULAR VOLUME 82.3 fL (80-94); MONOCYTES # (AUTO) 0.5 K/uL (0.8-1.0); MONOCYTES % (AUTO) 4.8 % (1.7-9.3); NEUTROPHILS # (AUTO) 7.7 K/uL (1.8-7.7); NEUTROPHILS % (AUTO) 74.9 % (42.2-75.2); PLATELET COUNT (AUTO) 607 K/uL (140-450); RED BLOOD CELL COUNT(AUTO) 3.33 MIL/uL (4.20-6.10); RED CELL DISTRIBUTION WIDTH 19.9 % (11.6-13.7); WHITE BLOOD COUNT (AUTO) 10.3 K/uL (4.8-10.8)
[2018-08-05 08:38] LABS: ANION GAP 12.7 (8-16); CARBON DIOXIDE 25.8 mmol/L (21-32); CREATININE 1.2 mg/dL (0.7-1.3); POTASSIUM 3.5 mmol/L (3.5-5.1)
[2018-08-05 08:43] LABS: PHOSPHORUS 3.8 mg/dL (2.5-4.9)
[2018-08-05] MEDS: LACTULOSE 20 GM/30 ML UDC PO SCH (09:00)
[2018-08-05] MEDS: ASCORBIC ACID 500 MG TAB PO SCH (10:12)
[2018-08-05] MEDS: PANTOPRAZOLE 40 MG TABEC PO SCH (10:13)
[2018-08-05] MEDS: LINEZOLID 600MG PREMIX 300 ML IV SCH ×2 (10:13→22:55)
[2018-08-05] MEDS: HYDROcodone/APAP 5/325 MG 1 TAB TAB PO PRN ×2 (10:13→14:43)
[2018-08-05] MEDS: ZINC SULF 220 MG CAP PO SCH (10:13)
[2018-08-05] MEDS: MUPIROCIN CA NASAL 2% 1GM TUBE NS SCH (10:14)
[2018-08-05] MEDS: CHLORHEXADINE GLUC 2% CLOTH TP SCH (10:15)
[2018-08-05] MEDS: PIPER/TAZO 3.375GM/D5W PREMIX 50 ML IV SCH ×2 (14:15→22:09)
[2018-08-05] MEDS: GAUZE TP SCH (14:16)
--- NOTE | 2018-08-05 15:03 | NUR ---
08/05/18 RD FOLLOW UP COMPLETED PLEASE REFER TO NUTRITION PROGRESS NOTE UNDER CARE ACTIVITY FOR ESTIMATED NUTRITION NEEDS. RD RECOMMENDATIONS: 1. CONTINUE RENAL DIET WITH NEPRO BID. 2. CONSIDER LIBERALIZING PT�S DIET TO REGULAR DIET BUN AND CREATININE ARE NOW WNL, AND GFR ALSO IMPROVING (08/04- GFR = 61). 3. CONSIDER ORDERING A SWALLOW EVALUATION IF PT HAS CHEWING/SWALLOWING DIFFICULTY. 4. RD TO FOLLOW-UP 3-5, MODERATE RISK. GENIA HUDSON, RD
--- NOTE | 2018-08-05 15:21 | NUR ---
PT DRESSINGS CHANGED. WOUND EVAL DONE. PT TOLERATED WELL. NO OTHER NEEDS AT THIS TIME. WILL CONTINUE TO MONITOR PT.
[2018-08-05 16:00] VITALS: BP 114/71
--- NOTE | 2018-08-05 19:30 | NUR ---
RECEIVED ENDORSEMENT FROM DAYSHIFT NURSE AT BEDSIDE FOR CONTINUITY OF CARE, PT IN STABLE CONDITION.
--- NOTE | 2018-08-05 19:36 | NUR ---
RECEIVED REPORT FORM MONSTER MENDIETA DAYSHIFT NURSE AT BEDSIDE FOR CONTINUITY OF CARE, PT IN STABLE CONDITION.
--- NOTE | 2018-08-05 19:55 | NUR ---
ENDORSED PT TO ENDOCRINOLOGY TEACHER FOR CONTINUITY OF CARE. PT IN STABLE CONDITION AT THIS TIME.
--- NOTE | 2018-08-05 21:00 | NUR ---
PT IN BED NO S/S OF PAIN OR DISTRESS NOTED. PT GIVEN ZOSYN ORDERED.
--- NOTE | 2018-08-05 22:00 | NUR ---
PT C/O 11/28 PAIN GIVEN MORPHINE IVP FOR RIGHT LEG CONTRACTIONS. LINEZOLID GIVEN IV ORDERED.
[2018-08-05] MEDS: traZODone 50 MG TAB PO SCH (22:02)
[2018-08-05] MEDS: MORPHINE SULFATE 2 MG/ML SYR IVP PRN (22:04)
[2018-08-06] VITALS: BP 108/65
--- NOTE | 2018-08-06 00:30 | NUR ---
PT IN BED NO S/S OF PAIN OR DISTRESS NOTED V/S FOLLOWS T 98.4 P 93 R 18 B/P 113/73 02 93% ON R/A.
[2018-08-06] MEDS: Z-GUARD PASTE TP SCH ×2 (01:00→13:56)
--- NOTE | 2018-08-06 03:30 | NUR ---
PT HAD LARGE LOOSE BM DRESSINGS CHANGED ON R ISCHERL TUBEROSITY. MILD ODOR NOTED MODERATE SEROSANGENOUS DRAINAGE NOTED, SACRAL WOUNDS DRESSED AND Z GUARD APPLIED ORDERED.
[2018-08-06] MEDS: MORPHINE SULFATE 2 MG/ML SYR IVP PRN ×2 (05:04→15:18)
[2018-08-06] MEDS: PIPER/TAZO 3.375GM/D5W PREMIX 50 ML IV SCH ×3 (05:13→21:14)
--- NOTE | 2018-08-06 05:30 | NUR ---
PT C/O PAIN IN R LEG 11/28 GIVEN IVP MORPHINE ORDERED. WILL MONITOR FOR PAIN RELIEF.
[2018-08-06 06:21] LABS: CARBON DIOXIDE 25.4 mmol/L (21-32); CREATININE 1.3 mg/dL (0.7-1.3); POTASSIUM 3.4 mmol/L (3.5-5.1)
[2018-08-06 06:29] LABS: BASOPHILS # (AUTO) 0.1 K/uL (0.00-0.22); BASOPHILS % (AUTO) 0.9 % (0.0-2.0); EOSINOPHILS # (AUTO) 0.5 K/uL (0-0.4); EOSINOPHILS % (AUTO) 4.8 % (0.0-4.0); HEMOGLOBIN 8.4 g/dL (12.0-18.0); LYMPHOCYTES # (AUTO) 1.5 K/uL (2.0-11.5); LYMPHOCYTES % (AUTO) 14.7 % (20.5-51.1); MEAN CORPUSCULAR HEMOGLOBIN 26 pg (27-31); MEAN CORPUSCULAR HGB CONC 32 g/dL (33-37); MONOCYTES # (AUTO) 0.4 K/uL (0.8-1.0); MONOCYTES % (AUTO) 4.4 % (1.7-9.3); NEUTROPHILS # (AUTO) 7.7 K/uL (1.8-7.7); NEUTROPHILS % (AUTO) 75.2 % (42.2-75.2); PLATELET COUNT (AUTO) 530 K/uL (140-450); RED BLOOD CELL COUNT(AUTO) 3.21 MIL/uL (4.20-6.10); RED CELL DISTRIBUTION WIDTH 20.3 % (11.6-13.7); WHITE BLOOD COUNT (AUTO) 10.2 K/uL (4.8-10.8)
--- NOTE | 2018-08-06 07:35 | NUR ---
RECEIVED PT IN BED, AAO WITH PERIODS OF FORGETFULNESS AND BEING SLOW, REINFORCEMENT PROVIDED. NO SOB NOTED. NO C/O PAIN AT THIS TIME. IV TO RT FOREARM PATENT AND INTACT. CHEST, DIMINISHED AIR ENTRY TO THE BASES. ABDOMEN SOFT, BOWEL SOUNDS PRESENT. WITH SUPRAPUBIC CATHETER DRAINING MODERATE AMOUNTS CLOUDY YELLOW URINE. BLE CONTRACTURES NOTED, WITH BILATERAL OFF LOADING BOOTS IN PLACE. WILL REPOSITION PT EVERY 2 HRS. INSTRUCTED PT TO CALL FOR ASSISTANCE, CALL LIGHT WITHIN REACH, PT VERBALIZED UNDERSTANDING.
--- NOTE | 2018-08-06 07:35 | NUR ---
REPORT GIVEN TO HAILE RN DAYSHIFT NURSE AT BEDSIDE FOR CONTINUITY OF CARE, PT IN STABLE CONDITION.
[2018-08-06 08:00] VITALS: BP 122/71
[2018-08-06] MEDS ORDERED: POTASSIUM CHLORIDE 10 MEQ TABER PO SCH (08:00)
--- NOTE | 2018-08-06 08:00 | NUR ---
PT SEEN BY Nury SAHU WITH NEW ORDERS.
[2018-08-06] MEDS: CHLORHEXADINE GLUC 2% CLOTH TP SCH (09:00)
--- NOTE | 2018-08-06 09:24 | NUR ---
CALLED DR. DE ANDA REGARDING PLAN FOR SURGERY, STATED HE WILL DO IT TOMORROW, ALSO STATED HE WILL CALL LATER TODAY TO INFORM THE HOUSE SUP FOR THE PROCEDURE. INSTRUCTED PT NOT TO EAT AND DRINK AFTER MIDNIGHT TONIGHT, VERBALIZED UNDERSTANDING.
[2018-08-06] MEDS: LINEZOLID 600MG PREMIX 300 ML IV SCH ×2 (09:57→20:46)
[2018-08-06] MEDS: PANTOPRAZOLE 40 MG TABEC PO SCH (09:58)
[2018-08-06] MEDS: ZINC SULF 220 MG CAP PO SCH (09:58)
[2018-08-06] MEDS: HYDROcodone/APAP 5/325 MG 1 TAB TAB PO PRN ×2 (09:59→20:54)
[2018-08-06] MEDS: ASCORBIC ACID 500 MG TAB PO SCH (09:59)
[2018-08-06] MEDS: LACTULOSE 20 GM/30 ML UDC PO SCH (10:00)
[2018-08-06] MEDS: MUPIROCIN CA NASAL 2% 1GM TUBE NS SCH (10:00)
--- NOTE | 2018-08-06 12:05 | NUR ---
PT EATING LUNCH. NO SOB NOTED. NO COMPLAINTS MADE.
[2018-08-06] MEDS: GAUZE TP SCH (13:00)
[2018-08-06 15:00] VITALS: BP 116/67
--- NOTE | 2018-08-06 15:45 | NUR ---
PT RESTING. NO SOB NOTED. NO SIGNS OF PAIN.
--- NOTE | 2018-08-06 19:15 | NUR ---
PT AWAKE. NO SOB NOTED. NO COMPLAINTS MADE. ENDORSED TO NEXT SHIFT NURSE FOR CONTINUITY OF CARE.
--- NOTE | 2018-08-06 19:35 | NUR ---
RECEIVED BEDSIDE REPORT FROM DAY SHIFT NURSE FOR CONTINUITY OF CARE. PATIENT AWAKE, ALERT, RESPIRATION EVEN UNLABORED ON ROOM AIR. DENIES PAIN. SKIN IS WARM AND DRY. IV PATENT AND INTACT. SUPRAPUBIC CATHETER DRAINING YELLOW URINE. MULTIPLE WOUND NOTED. BLE CONTRACTURES NOTED. PLAN OF CARE WAS DISCUSSED. ALL SAFETY MEASURES ARE IN PLACE. BED IS AT LOW POSITION. CALL LIGHT WITHIN REACH AND VERBALIZES ITS USE. WILL CONTINUE TO MONITOR.
[2018-08-06] MEDS: ALBUTEROL SULFATE/IPRATROPIU 3 ML SOL IH PRN (20:10)
--- NOTE | 2018-08-06 20:30 | NUR ---
INITIAL ASSESSMENT DONE. ALL SCHEDULE MEDS WERE GIVEN PER ORDER. PATIENT COMPLAINED OF 6/10 PAIN. PRN PAIN MEDS ADMINISTERED. WILL CONTINUE TO MONITOR.
[2018-08-06] MEDS: traZODone 50 MG TAB PO SCH (20:47)
--- NOTE | 2018-08-06 21:30 | NUR ---
REASSESSED PATIENT PAIN. PATIENT VERBALIZES REDUCE PAIN 2/10. WILL CONTINUE TO MONITOR.
--- NOTE | 2018-08-06 22:45 | NUR ---
PATIENT LYING IN BED WATCHING TV RESPIRATION EVEN UNLABORED ON ROOM AIR. NO DISTRESS NOTED. WILL CONTINUE TO MONITOR.
[2018-08-07] VITALS: BP 110/70
--- NOTE | 2018-08-07 | NUR ---
VITALS WERE TAKEN. PATIENT CONDITION STABLE. PATIENT ASKED FOR PAIN MEDS BEFORE WOUND DRESSING CHANGE. PRN PAIN MEDS ADMINISTERED. WILL CONTINUE TO MONITOR
[2018-08-07] MEDS: MORPHINE SULFATE 2 MG/ML SYR IVP PRN ×3 (00:23→23:28)
[2018-08-07] MEDS: Z-GUARD PASTE TP SCH ×2 (00:23→14:05)
--- NOTE | 2018-08-07 01:00 | NUR ---
CHANGED AND CLEANED PATIENT WOUND. PRN PAIN MEDS EFFECTIVE. PATIENT TOLERATED ALL THE TREATMENTS AND COMPLAINED NO PAIN DURING WOUND DRESSING.
--- NOTE | 2018-08-07 03:51 | NUR ---
CHECKED PATIENT. PATIENT SLEEPING RESPIRATION EVEN UNLABORED ON ROOM AIR. NO DISTRESS NOTED. WILL CONTINUE TO MONITOR.
[2018-08-07] MEDS: PIPER/TAZO 3.375GM/D5W PREMIX 50 ML IV SCH ×3 (04:12→21:02)
[2018-08-07 06:49] LABS: BASOPHILS # (AUTO) 0.1 K/uL (0.00-0.22); BASOPHILS % (AUTO) 1.5 % (0.0-2.0); EOSINOPHILS # (AUTO) 0.4 K/uL (0-0.4); EOSINOPHILS % (AUTO) 7.8 % (0.0-4.0); HEMATOCRIT 28.3 % (36-52); LYMPHOCYTES # (AUTO) 1.5 K/uL (2.0-11.5); LYMPHOCYTES % (AUTO) 26.3 % (20.5-51.1); MEAN CORPUSCULAR HEMOGLOBIN 26 pg (27-31); MEAN CORPUSCULAR HGB CONC 32 g/dL (33-37); MEAN CORPUSCULAR VOLUME 81.8 fL (80-94); MONOCYTES # (AUTO) 0.3 K/uL (0.8-1.0); MONOCYTES % (AUTO) 5.5 % (1.7-9.3); NEUTROPHILS # (AUTO) 3.3 K/uL (1.8-7.7); NEUTROPHILS % (AUTO) 58.9 % (42.2-75.2); PLATELET COUNT (AUTO) 539 K/uL (140-450); RED BLOOD CELL COUNT(AUTO) 3.46 MIL/uL (4.20-6.10); RED CELL DISTRIBUTION WIDTH 20.4 % (11.6-13.7); WHITE BLOOD COUNT (AUTO) 5.6 K/uL (4.8-10.8)
[2018-08-07 07:24] LABS: ANION GAP 13.1 (8-16); CREATININE 1.3 mg/dL (0.7-1.3); POTASSIUM 4.1 mmol/L (3.5-5.1)
--- NOTE | 2018-08-07 07:28 | NUR ---
ENDORSED PATIENT TO DAY SHIFT NURSE FOR CONTINUITY OF CARE. PATIENT STABLE AT THIS TIME.
--- NOTE | 2018-08-07 07:30 | NUR ---
RECEIVED BEDSIDE REPORT FROM GRAPE CRUSHER NURSE FOR CONTINUITY OF CARE. A/OX3 TO NAME, PLACE AND TIME, ON ROOM AIR. PT IS AWAKE AND ALERT AND WATCHING TV ON BED. DENIES PAIN. NO DISTRESS NOTED AT INITIAL ASSESSMENT. PT ABLE TO MAKE NEEDS KNOWN, AND ABLE TO FOLLOW COMMANDS. SACRAL WOUND NOTED AND DRESSING IS CLEAN AND DRY. IV ON R HAND 22G, ASYMPTOMATIC AND INTACT, SALINE LOCK. SUPRAPUBIC CATHETER IN PLACE AND DRAINING CLEAR YELLOW URINE. UNABLE AMBULATES AND BED REST. PATIENT IS ON WOUND BED AND BED ALARM IS ON. VITAL SIGNS TAKEN. PATIENT IS NPO AND SIGN POSTED ON DOOR. DISCUSSED PLAN OF CARE WITH PATIENT, PATIENT VERBALIZED OK. BED IN LOW POSITION AND CALL LIGHT WITHIN REACH. EDUCATED PATIENT TO USE CALL LIGHT FOR ANY ASSISTANCE.
[2018-08-07 08:00] VITALS: BP 119/77
--- NOTE | 2018-08-07 08:05 | NUR ---
PATIENT'S VISITOR MERY IS AT BEDSIDE. INSTRUCTED MERY TO WEAR PPE BEFORE ENTER PATIENT'S ROOM. MERY WOULD LIKE TO SPEAK WITH HOSPITAL INSURANCE REPRESENTATIVE. PAGED HOSPITAL INSURANCE REPRESENTATIVE.
[2018-08-07] MEDS: PANTOPRAZOLE 40 MG TABEC PO SCH (09:56)
[2018-08-07] MEDS: ZINC SULF 220 MG CAP PO SCH (09:56)
[2018-08-07] MEDS: ASCORBIC ACID 500 MG TAB PO SCH (09:57)
[2018-08-07] MEDS: LACTULOSE 20 GM/30 ML UDC PO SCH (09:57)
[2018-08-07] MEDS: MUPIROCIN CA NASAL 2% 1GM TUBE NS SCH (09:58)
[2018-08-07] MEDS: CHLORHEXADINE GLUC 2% CLOTH TP SCH (09:59)
[2018-08-07] MEDS: LINEZOLID 600MG PREMIX 300 ML IV SCH ×2 (09:59→21:41)
--- NOTE | 2018-08-07 09:59 | NUR ---
ADMINISTERED MEDS PER MD ORDER, PATIENT TOLERATED WELL. PATIENT IS WATCHING TV ON BED. DENIES PAIN AND SOB. NO SIGNS OF DISTRESS NOTED.
--- NOTE | 2018-08-07 11:20 | NUR ---
PATIENT IS WATCHING TV ON BED. DENIES PAIN. NO SIGNS OF DISTRESS NOTED. SAFETY MEASURES ARE IN PLACE. BED IN LOW POSITION AND CALL LIGHT WITHIN REACH. INSTRUCTED PATIENT TO PRESS THE CALL LIGHT FOR ANY ASSISTANCE. PATIENT VERBALIZED "OK".
--- NOTE | 2018-08-07 13:35 | NUR ---
CLEANED PATIENT WOUNDS WITH CARE SOLUTIONS AND PAD DAY. APPLIED ADAPTIC DRESSING TO WOUND BED AND KERLIX JOESPH FAN FOLDED. APPLIED Z-GUARDS TO SADA WOUND, SACRAL PRESSURE INJURIES, GROINS, PENIS, SCROTUM. OFF LOADED PRESSURES WITH PILLOWS AND HEELS WEDGES. REPOSITIONED PATIENT TO HIS LEFT SIDE. PATIENT TOLERATED WELL.
--- NOTE | 2018-08-07 14:05 | NUR ---
OBTAINED INFORMATION FROM PATIENT AND COMPLETED OR PERIOPERATIVE CHECKLIST AT BEDSIDE. PATIENT IS WATCHING TV ON BED. NO SIGNS OF DISTRESS NOTED.
[2018-08-07] MEDS: GAUZE TP SCH (14:06)
[2018-08-07] MEDS ORDERED: HYDROGEN PEROXIDE 3% 240 ML BTL TP ONE (14:37)
[2018-08-07] MEDS ORDERED: BUPIVACAINE-MPF/EPI 0.5% 30 ML VIAL INJ ONE (14:38)
--- NOTE | 2018-08-07 14:50 | NUR ---
PATIENT IS OFF UNIT TO THE OR ACCOMPANIES BY TWO OR NURSES. PATIENT IS IN A STABLE CONDITION.
--- NOTE | 2018-08-07 15:14 | NUR ---
CALLED [facility] AND SPOKE WITH SHRUTHI AND SHE SAID FOR SNF'S THEY GIVE THE AUTH BUT WE NEED TO FIND A SNF CONTRACTED WITH [facility].
[2018-08-07] MEDS ORDERED: MIDAZOLAM 2 MG/2 ML VIAL ONE (15:16)
[2018-08-07] MEDS ORDERED: KETAMINE 500 MG/5 ML VIAL ONE (15:16)
[2018-08-07] MEDS ORDERED: ONDANSETRON 4 MG/2 ML VIAL IVP PRN (15:25)
[2018-08-07] MEDS ORDERED: HYDROmorphone 1 MG/ML AMP IVP PRN (15:25)
[2018-08-07] MEDS ORDERED: LIDOCAINE/EPI MPF 1%1:200000 30 ML VIAL INJ ONE (15:35)
--- NOTE | 2018-08-07 15:43 | NUR ---
FAXED INQUIRY TO [facility] [phone] PHONE [phone] FAXED INQUIRY TO [facility] [phone] PHONE [phone] FAXED [facility]QUIRY TO [facility] [phone] PHONE [phone] FAXED INQUIRY TO [facility] [phone] PHONE [phone] FAXED INQUIRY TO [facility] [phone] PHONE [phone]
[2018-08-07 16:00] VITALS: BP 123/79
--- NOTE | 2018-08-07 16:10 | NUR ---
PATIENT CAME BACK TO UNIT VIA GURNEY ACCOMPANIED BY TWO OR NURSES. VITAL SIGNS TAKEN; BP 123/79, PULSE 103,TEMP 99.1, AND SPO2 95% RA. PATIENT DENIES PAIN AT THIS TIME.
--- NOTE | 2018-08-07 17:12 | NUR ---
PATIENT COMPLAINED OF 8/10 OF PAIN ON HIS WOUND. ADMINISTERED PRN PAIN MED.
--- NOTE | 2018-08-07 17:40 | NUR ---
PATIENT IS EATING DINNER ON BED AND WATCHING TV. NO SIGNS OF DISTRESS NOTED. SAFETY MEASURES IN PLACE. BED IN LOW POSITION AND CALL LIGHT WITHIN REACH.
--- NOTE | 2018-08-07 19:11 | NUR ---
ENDORSED PATIENT AT BEDSIDE TO [employer] SALES CONSULTANT NURSE FOR CONTINUITY OF CARE. PATIENT IS IN STABLE CONDITION.
--- NOTE | 2018-08-07 19:30 | NUR ---
RECEIVED BEDSIDE REPORT FROM DAY SHIFT NURSE FOR CONTINUITY OF CARE. PATIENT AWAKE, ALERT, COOPERATIVE, RESPIRATION EVEN UNLABORED ON ROOM AIR. DENIES PAIN. SKIN IS WARM AND DRY. MULTIPLE WOUND NOTED. DRESSING CLEAN, DRY AND INTACT. IV PATENT AND INTACT. SUPRAPUBIC CATHETER NOTED DRAINING YELLOW URINE. ABLE TO MAKE NEEDS KNOWN. PLAN OF CARE WAS DISCUSSED. ALL SAFETY MEASURES ARE IN PLACE. CONTACT PRECAUTION MAINTAINED. BED IS AT LOW POSITION. CALL LIGHT WITHIN REACH AND VERBALIZES ITS USE. WILL CONTINUE TO MONITOR.
--- NOTE | 2018-08-07 19:43 | NUR ---
RECEIVED PATIENT ON ROOM AIR, PULSE OX SAT 96%. NO SOB NOTED AT THIS TIME. NO HHN INDICATED. PATIENT DEMONSTRATES GOOD COUGH EFFORT TO SPONTANEOUSLY EXPECTORATE SECRETIONS. NO RESPIRATORY DISTRESS NOTED. WILL CONTINUE TO MONITOR.
--- NOTE | 2018-08-07 21:00 | NUR ---
INITIAL ASSESSMENT DONE. VITALS WERE TAKEN. ALL SCHEDULE MEDS WERE GIVEN AND TOLERATED WELL. WILL CONTINUE TO MONITOR
[2018-08-07] MEDS: traZODone 50 MG TAB PO SCH (21:02)
--- NOTE | 2018-08-07 22:30 | NUR ---
CHECKED PATIENT. PATIENT WATCHING TV. RESPIRATION EVEN UNLABORED ON ROOM AIR. NO DISTRESS NOTED. CALL LIGHT WITHIN REACH. WILL CONTINUE TO MONITOR
--- NOTE | 2018-08-07 23:25 | NUR ---
PATIENT COMPLAINED OF PAIN 8/10 RIGHT HIP. PRN PAIN MED ADMINISTERED. WILL CONTINUE TO MONITOR.
[2018-08-08] VITALS: BP 106/68
--- NOTE | 2018-08-08 | NUR ---
VITALS WERE TAKEN. PATIENT IN STABLE CONDITION. CALL LIGHT AT BEDSIDE. WILL CONTINUE TO MONITOR.
--- NOTE | 2018-08-08 00:56 | NUR ---
PATIENT HAD 2 BIG BOWEL MOVEMENT. WOUND CLEANED AND DRESSING CHANGED.
[2018-08-08] MEDS: Z-GUARD PASTE TP SCH ×2 (00:57→13:10)
--- NOTE | 2018-08-08 02:00 | NUR ---
CHECKED PATIENT. PATIENT SLEEPING RESPIRATION EVEN UNLABORED NO DISTRESS NOTED. CALL LIGHT WITHIN REACH. WILL CONTINUE TO MONITOR
--- NOTE | 2018-08-08 04:00 | NUR ---
CHECKED PATIENT. PATIENT IN STABLE CONDITION. NO DISTRESS NOTED. WILL CONTINUE TO MONITOR
[2018-08-08] MEDS: PIPER/TAZO 3.375GM/D5W PREMIX 50 ML IV SCH ×3 (04:15→20:55)
[2018-08-08 07:00] LABS: BASOPHILS # (AUTO) 0.1 K/uL (0.00-0.22); BASOPHILS % (AUTO) 1.3 % (0.0-2.0); EOSINOPHILS # (AUTO) 0.4 K/uL (0-0.4); EOSINOPHILS % (AUTO) 5.7 % (0.0-4.0); HEMATOCRIT 26.8 % (36-52); HEMOGLOBIN 8.5 g/dL (12.0-18.0); LYMPHOCYTES # (AUTO) 1.3 K/uL (2.0-11.5); LYMPHOCYTES % (AUTO) 20.5 % (20.5-51.1); MEAN CORPUSCULAR HEMOGLOBIN 26 pg (27-31); MEAN CORPUSCULAR HGB CONC 32 g/dL (33-37); MEAN CORPUSCULAR VOLUME 82.5 fL (80-94); MONOCYTES # (AUTO) 0.4 K/uL (0.8-1.0); MONOCYTES % (AUTO) 6.9 % (1.7-9.3); NEUTROPHILS # (AUTO) 4.1 K/uL (1.8-7.7); NEUTROPHILS % (AUTO) 65.6 % (42.2-75.2); PLATELET COUNT (AUTO) 503 K/uL (140-450); RED BLOOD CELL COUNT(AUTO) 3.25 MIL/uL (4.20-6.10); RED CELL DISTRIBUTION WIDTH 19.8 % (11.6-13.7); WHITE BLOOD COUNT (AUTO) 6.3 K/uL (4.8-10.8)
[2018-08-08 07:14] LABS: ANION GAP 14.2 (8-16); CARBON DIOXIDE 26.6 mmol/L (21-32); CREATININE 1.2 mg/dL (0.7-1.3); POTASSIUM 3.8 mmol/L (3.5-5.1)
[2018-08-08] MEDS ORDERED: ONDANSETRON 4 MG TAB PO PRN (07:46)
[2018-08-08 08:00] VITALS: BP 108/61
[2018-08-08] MEDS: LINEZOLID 600MG PREMIX 300 ML IV SCH ×2 (09:48→21:52)
[2018-08-08] MEDS: LACTULOSE 20 GM/30 ML UDC PO SCH (09:49)
[2018-08-08] MEDS: ASCORBIC ACID 500 MG TAB PO SCH (09:49)
[2018-08-08] MEDS: MUPIROCIN CA NASAL 2% 1GM TUBE NS SCH (09:49)
[2018-08-08] MEDS: ZINC SULF 220 MG CAP PO SCH (09:49)
[2018-08-08] MEDS: CHLORHEXADINE GLUC 2% CLOTH TP SCH (09:49)
--- NOTE | 2018-08-08 10:00 | NUR ---
ADMINISTERED SCHEDULED MEDS, EXCEPT FOR LACTULOSE. PATIENT STATED HE HAD MANY BOWEL MOVEMENTS. PATIENT TOLERATED WELL. WILL CONTINUE TO MONITOR.
[2018-08-08] MEDS: ALBUTEROL SULFATE/IPRATROPIU 3 ML SOL IH PRN ×2 (10:02→19:04)
[2018-08-08] MEDS: PANTOPRAZOLE 40 MG TABEC PO SCH (10:11)
[2018-08-08] MEDS: HYDROcodone/APAP 5/325 MG 1 TAB TAB PO PRN ×2 (10:11→14:07)
--- NOTE | 2018-08-08 11:32 | NUR ---
MEASURED WOUND AND RE APPLIED DRESSINGS ON SACRAL WOUNDS. PICTURES TAKEN. PATIENT TOLERATED WELL. WILL CONTINUE TO MONITOR.
--- NOTE | 2018-08-08 11:42 | NUR ---
CM NOTE PER [facility] CM IVANIA PH# [phone], FOR TRANSPORT TO GO TO SNF TO USE [facility] PH# [phone], AUTH# [id number]. CHARGE NURSE ELDER KINNEY OF [facility] PH# [phone] SAID THEY CANNOT TAKE THE PATIENT, NO REASON GIVEN.
--- NOTE | 2018-08-08 11:46 | NUR ---
CALLED [facility] AND SPOKE WITH GABINO, ADMISSION COORDINATOR. UNABLE TO TAKE PATIENT, NO BEDS THIS WEEK.
--- NOTE | 2018-08-08 11:47 | NUR ---
WOUND CARE RE-EVALUATION NOTE: S/P RIGHT ISCHIUM EXTENDED TO RIGHT BUTTOCK UN-STAGEABLE PRESSURE INJURY SURGICAL DEBRIDEMENT. WITH PT. PERMISSION, WOUND CARE TEACHING DONE TO MANUEL WHO IS PT. LONG TIME BULB FARMWORKER FRIEND AND WHO IS COORDINATING CARE FOR PT. AT THIS TIME. EXPLAIN TO MANUEL ALL INTERVENTIONS INCLUDING DIET RICH IN HIGH PROTEIN, AIR MATTRESS, GEL CUSHION TO WHEEL CHAIR, TURNING Q2 HOURS AND CHECKING FOR DRESSING DRYNESS AND CHANGE IF SOILING NEEDED. MANUEL AND PT. VERBALIZES UNDERSTANDING. INTEGUMENTARY: -MULTIPLE HEALED SURGICAL SCARS TO BILATERAL EXTREMITIES -SUPRAPUBIC OSTOMY SADA-SKIN DRY AND CLEAN -RIGHT ISCHIUM EXTENDED TO RIGHT BUTTOCK UN-STAGEABLE PRESSURE INJURY , 10A4C8FW, WOUND BED WITH 20% BLACK/BROWN SLOUGH COVERED TO WOUND BED AND 80% OF RED GRANULATING TISSUE. SMALL AMOUNT OF SEROSANGUINEOUS DRAINAGE, NO ODOR, SADA-WOUND SKIN MACERATION WITH REDNESS EXTENDED TO SACRALCOCCYX INDICATED FURTHER DAMAGE -SACRALCOCCYX PRESSURE INJURY STAGE 2, 3X1X0.1 CM, SADA-WOUND SKIN PALE PINK, SADA-WOUND REDNESS MERGED WITH PERIANAL IAD, WOUND BED RED AND MOIST,NO ODOR. -INCONTINENT ASSOCIATE DERMATITIS (IAD) REDNESS WITH MULTIPLE EROSIONS: GROINS, PENIS, ANTERIOR AND POSTERIOR SCROTUM EXTENDED TO PERIANAL IMPROVING, RESPONDING TO TREATMENT RECOMMENDATIONS: -CLEANSE RIGHT ISCHIUM EXTENDED TO RIGHT BUTTOCK PRESSURE INJURIES WITH WOUND CARE SOLUTIONS, PAT DRY, APPLY THERAHONEY TO BLACK/BROWN SLOUGH AREA ONLY, APPLY Z-GUARD TO SADA-WOUND AND PACK WOUND WITH ADAPTIC DRESSING AND COVER WITH DRY DRESSING SECURE WITH TAPE CHANGE QD AND PRN IF SOILING. -CLEANSE SACRALCOCCYX PRESSURE INJURIES WITH WOUND CARE SOLUTIONS, PAT DRY, APPLY Z-GUARD AND COVER WITH DRY DRESSING CHANGE QD AND PRN IF SOILING. -APPLY Z-GUARD TO: GROINS, PENIS, ANTERIOR AND POSTERIOR SCROTUM EXTENDED TO PERIANAL BID AND PRN IF SOILING, LEAVE IT OPEN TO AIR -KEEP SKIN DRY AND CLEAN AT ALL TIMES, PLEASE CHECK Q2H AND PRN FOR INCONTINENCY OF BOWEL -OFFLOAD BILATERAL HEELS BY PLACING PILLOWS UNDER CALVES AND KNEES UNLESS OTHERWISE CONTRAINDICATED -PRESSURE REDISTRIBUTION SURFACE THERAPY -TURN AND REPOSITION Q2H, OFFLOAD SACRALCOCCYX AND RIGHT ISCHIUM. -CONTINUE TO FOLLOW RD RECOMMENDATIONS ALL ABOVE RECOMMENDATIONS DISCUSSED WITH PRIMARY RN WILL FOLLOW UP Q7-10 DAYS, PLEASE CONTACT WOUND CARE NURSE FOR ANY QUESTION AND CHANGE OF WOUND CONDITION. Addendum: 08/08/18 at 1340 by Tommy Woods RN (Grace) SPOKE TO GARCÍA REGARDING TO PT. DOES NOT WANT SNF PLACEMENT. WOUND CARE TEACHING TO ROBERT. JACKSON VERBALIZES UNDERSTANDING PT. REQUIRES 24/ CARE.
--- NOTE | 2018-08-08 11:59 | NUR ---
CALLED [facility] AND SPOKE WITH RAUL, [phone] FAXED INQUIRY TO [phone]
[2018-08-08] MEDS: GAUZE TP SCH (13:10)
--- NOTE | 2018-08-08 13:25 | NUR ---
CALLED [facility] AND LEFT MESSAGE WITH GARCIA TO CALL PEARL ARSHAD ABOUT THIS PATIENT. CALLED [facility] AND SPOKE WITH ISAK AND HE WILL CALL SOL ARSHAD BACK. CALLED [facility] AND SPOKE WITH RAUL. SHE IS LOOKING AT THIS PATIENT, AND I TOLD HER TO CALL PEARL ARSHAD CALLED [facility].
--- NOTE | 2018-08-08 13:58 | NUR ---
SPOKE WITH SHRUTHI FROM [facility], SHE SAID TO TRY NASIR ZEPEDA, ISAIAH, BRISA CHEEMA , [facility] AND [facility]. INFORMED PEARL MENDIETA CM.
--- NOTE | 2018-08-08 14:16 | NUR ---
TURNED PATIENT TO R SIDE LYING POSITION. PATIENT TOLERATED WELL. DR. CARLSON NOTIFIED PATIENT OF RETURNING TO SNF AND INSERTION OF PICC LINE. PATIENT VERBALIZED UNDERSTANDING. WILL CONTINUE TO MONITOR.
--- NOTE | 2018-08-08 14:20 | NUR ---
CM NOTE PER ERIKA CHEEMA, THEY DO NOT HAVE A CONTRACT WITH [facility]. FAXED INQUIRY TO [facility]IA[facility] MATTHEWS, [facility] AND INCLUDED THE PHONE# TO THE NURSING STATION WHERE THE PATIENT IS IN CASE THEY CALL BACK AT A LATER TIME.
--- NOTE | 2018-08-08 14:52 | NUR ---
CM NOTE PER STAN JACKSON, SHE RECEIVED A CALL FROM MARISSANYU LANGONE [facility] STATING THAT THEY CAN TAKE THE PATIENT IF [facility] PATRICIA IS WILLING TO DO AN MODESTO. I INFORMED [facility] JEANCARLOS REDD PH# [phone] WHO SAID THAT LONG THE SNF IS CONTRACTED WITH [facility] THEY DO NOT NEED AN MODESTO. IVANIA SAID SHE WILL CALL [facility]. I ALSO GAVE MICHELLE OF [facility] THE NUMBER OF JEANCARLOS REDD.
[2018-08-08 16:00] VITALS: BP 109/66
--- NOTE | 2018-08-08 17:00 | NUR ---
PATIENT WATCHING TV, ON ROOM AIR, NO DISTRESS NOTED. WILL CONTINUE TO MONITOR.
--- NOTE | 2018-08-08 19:20 | NUR ---
GAVE REPORT TO ANAM STOUT. PATIENT ENDORSED IN STABLE CONDITION.
--- NOTE | 2018-08-08 19:20 | NUR ---
RECEIVED ENDORSEMENT FORM NOÉ RN DAYSHIFT NURSE AT BEDSIDE FOR CONTINUITY OF CARE, PT INSTABLE CONDITION.
--- NOTE | 2018-08-08 20:00 | NUR ---
PT IS AOX3 IN LOW BED WITH SIDE RAILS UP X2 AND ALL FALLS PRECAUTIONS IN PLACE. PT WAS TURNED AND REPOSITIONED. HE HAD NO C/O AT THIS TIME. V/S A FOLLOWS T 97.0 P 106 R 20 B/P 117/70 02 95 %.IV SITE ON RIGHT F/A INTACT AND RUNNING N/S AT 10MLS/HR ORDERED.
--- NOTE | 2018-08-08 20:38 | NUR ---
TESS RN NURSE WHOM IS CERTIFIED TO INSERT THE PICC LINE CALLED AND SAID HE WILL BE THERE IN 30 MINUTES AND TO NOTIFY ULTRASOUND SO THAT THEY CAN BE PRESENT. RADIOLOGY CALLED AND KARSTEN SOUND AWARE OF PROCEDURE.
[2018-08-08] MEDS: traZODone 50 MG TAB PO SCH (20:55)
[2018-08-08] MEDS: MORPHINE SULFATE 2 MG/ML SYR IVP PRN (20:59)
--- NOTE | 2018-08-08 21:00 | NUR ---
PT REQUEST MORPHINE FOR SEVERE LEG PAIN 11/28. PT GIVEN IV PUSH MORPHINE. WILL MONITOR FOR EFFECT.
--- NOTE | 2018-08-08 21:10 | NUR ---
TESS HERE AND PREPPING PT AT BEDSIDE. ULTRA SOUND AT BEDSIDE FOR PROCEDURE.
--- NOTE | 2018-08-08 21:15 | NUR ---
PRIMARY MD CALLED TO GET ORDER FOR POST X RAY VERIFICATION OF PICC LINE PLACEMENT. TORB RECEIVED BY DR. CARLSON FOR XRAY VERIFICATION POST PROCEDURE.
--- NOTE | 2018-08-08 21:30 | NUR ---
PROCEDURE FINISHED, AWAITING POST X RAY CONFIRMATION.
--- NOTE | 2018-08-08 21:30 | NUR ---
PT TURNED, CHANGED AND REPOSITIONED. WOUNDS REDRESSED DUE TO BEING SOILED. ALL FALLS PRECAUTIONS IN PLACE.
--- NOTE | 2018-08-08 21:50 | NUR ---
PORTABLE X-RAY DONE AT BEDSIDE FOR PLACEMENT OF PICC VERIFICATION.
--- NOTE | 2018-08-08 22:45 | NUR ---
PT SLEEPING ALL FALLS PRECAUTIONS IN PLACE.
[2018-08-09] VITALS: BP 103/64
--- NOTE | 2018-08-09 01:10 | NUR ---
PT IN BED SLEEPING NO S/S OF PAIN OR DISCOMFORT NOTED. PICC LINE INTACT. X- RAY RESULTS BACK AND PICC LINE IS PLACED APPROPRIATELY AND IS READY TO BE USED. IV SITE ON RIGHT HAND INTACT AND RUNNING N/S AT 10MLD/HR. PT TURNED AND REPOSITIONED V/S A FOLLOWS T98.6 P 92 R 18 B/P 103/64 02 97% ON ROOM AIR. NO S/S OF THAPA OR DISTRESS NOTED. BED LOW AND ALL FALLS PRECAUTIONS IN PLACE.
[2018-08-09] MEDS: Z-GUARD PASTE TP SCH ×2 (01:48→17:13)
[2018-08-09] MEDS: HYDROcodone/APAP 5/325 MG 1 TAB TAB PO PRN ×2 (01:53→21:32)
--- NOTE | 2018-08-09 01:57 | NUR ---
PT C/O 5/10 PAIN IN LEGS GIVEN 1 TAB NORCO 5/325M PO/PRN. WILL MONITOR FOR PAIN EFFECT.
[2018-08-09] MEDS: PIPER/TAZO 3.375GM/D5W PREMIX 50 ML IV SCH ×3 (05:00→20:11)
--- NOTE | 2018-08-09 05:46 | NUR ---
BLOOD DRAWS AT BEDSIDE VIA PICC LINE. PICC LINE FLUSHED PATENT AND BLOOD RETURNED IN BOTH PORTS. BLOOD DRAWS OBTAINED VIA RED PORT. LABS GIVEN TO MIDDLEWARE ENGINEER FOR ANALYSIS.
[2018-08-09 07:27] LABS: BASOPHILS # (AUTO) 0.1 K/uL (0.00-0.22); BASOPHILS % (AUTO) 1.4 % (0.0-2.0); EOSINOPHILS # (AUTO) 0.3 K/uL (0-0.4); HEMATOCRIT 24.2 % (36-52); HEMOGLOBIN 7.7 g/dL (12.0-18.0); LYMPHOCYTES # (AUTO) 1.4 K/uL (2.0-11.5); LYMPHOCYTES % (AUTO) 22.1 % (20.5-51.1); MEAN CORPUSCULAR HEMOGLOBIN 26 pg (27-31); MEAN CORPUSCULAR HGB CONC 32 g/dL (33-37); MEAN CORPUSCULAR VOLUME 82.3 fL (80-94); MONOCYTES # (AUTO) 0.4 K/uL (0.8-1.0); MONOCYTES % (AUTO) 6.8 % (1.7-9.3); NEUTROPHILS # (AUTO) 4.2 K/uL (1.8-7.7); NEUTROPHILS % (AUTO) 64.7 % (42.2-75.2); PLATELET COUNT (AUTO) 433 K/uL (140-450); RED BLOOD CELL COUNT(AUTO) 2.94 MIL/uL (4.20-6.10); RED CELL DISTRIBUTION WIDTH 19.5 % (11.6-13.7); WHITE BLOOD COUNT (AUTO) 6.4 K/uL (4.8-10.8)
--- NOTE | 2018-08-09 07:30 | NUR ---
CARE ENDORSED TO RADHAMES HOLLINS RN DAYSHIFT NURSES AT BEDSIDE FOR CONTINUITY OF CARE, PT IN STABLE CONDITION.
[2018-08-09 07:31] LABS: ANION GAP 12.3 (8-16); CARBON DIOXIDE 27.4 mmol/L (21-32); CREATININE 1.2 mg/dL (0.7-1.3); POTASSIUM 3.7 mmol/L (3.5-5.1)
--- NOTE | 2018-08-09 07:35 | NUR ---
RECEIVED HAND OFF REPORT FROM NUTRITION TECHNICIAN NURSE. PT ASLEEP IN BED. PICC LINE DRESSING CLEAN. IV SITE PATENT. ALL SAFETY MEASURES IN PLACE. WILL CONTINUE TO MONITOR
[2018-08-09 08:00] VITALS: BP 110/69
--- NOTE | 2018-08-09 08:00 | NUR ---
VITALS ASSESSED. REPOSITIONED PT AND ASSESSED SACRAL WOUND DRESSING. WILL CONTINUE TO MONITOR PT
[2018-08-09] MEDS: PANTOPRAZOLE 40 MG TABEC PO SCH (08:47)
[2018-08-09] MEDS: ASCORBIC ACID 500 MG TAB PO SCH (08:47)
[2018-08-09] MEDS: ZINC SULF 220 MG CAP PO SCH (08:48)
[2018-08-09] MEDS: MUPIROCIN CA NASAL 2% 1GM TUBE NS SCH (08:48)
[2018-08-09] MEDS: LINEZOLID 600MG PREMIX 300 ML IV SCH ×2 (08:49→20:53)
[2018-08-09] MEDS: CHLORHEXADINE GLUC 2% CLOTH TP SCH (08:54)
[2018-08-09] MEDS: LACTULOSE 20 GM/30 ML UDC PO SCH (08:54)
--- NOTE | 2018-08-09 08:55 | NUR ---
AM MEDS GIVEN, PT TOOK PILLS WITH APPLESAUCE WITHOUT PROBLEM, PT REFUSED LACTULOSE, STATED THAT HE HAS HAD TOO MANY LOOSE BM, IV ANTIBIOTIC STARTED, PICC INFUSING WELL, SITE WNL, PT DENIES ANY OTHER NEEDS AT THIS TIME, WILL CONTINUE TO MONITOR.
--- NOTE | 2018-08-09 10:30 | NUR ---
ASSISTED BAR TENDER IN REPOSITIONING AND CLEANING PT. CHANGED SACRAL WOUND DRESSING BECAUSE IT WAS SOILED. WILL CONTINUE TO ASSESS.
--- NOTE | 2018-08-09 10:56 | NUR ---
Rotary Dump Operator Note: Late entry for 08/06/18: I spoke with Cardiac Cath Rn Marian from [facility] [employer] [facility] ([facility]) [facility] via phone and relayed information I obtained from patient on 08/03/18. I also spoke with patient's laboratory animal facility supervisor from [facility] Gabrielle Gray and patient's Track Layer Head Keren from [facility] ext [phone]; and also provided them with information I obtained from patient on 08/03/18 (please see manager social media note documented on 08/03/18). I advised GEOVANNA Fonseca, laboratory animal facility supervisor Gabrielle, and Track Layer Head Keren to have a meeting as a group to discuss patient's concerns, fci housing placement, and home care assistance.
--- NOTE | 2018-08-09 11:03 | NUR ---
SPOKE WITH MOISES FROM [facility]. NO MALE BEDS.
--- NOTE | 2018-08-09 11:09 | NUR ---
CALLED [facility] AND SPOKE WITH LATESHA IN ADMISSIONS. SHE SAID PER HER LABORER PLUMBING, THEY HAVE DECLINED THE PATIENT.
--- NOTE | 2018-08-09 11:10 | NUR ---
Precision Instrument Maker And Repairer Note: I acknowledged note by accredited legal secretary Tommy Noe(Zamzam) Chuck documented on 08/08/18 at 11:47am, indicating patient does not want to go to a senior care facility upon discharge. However, I have confirmed with patient he is in agreement with going to a senior care facility temporarily, not supervisor concrete stone fabricating, Rehabilitation Medicine Physician Jocy valencia.
--- NOTE | 2018-08-09 11:15 | NUR ---
[place] [facility] [place]. CALLED [facility] AND SPOKE WITH JADA. NO MALE BEDS.
--- NOTE | 2018-08-09 12:15 | NUR ---
FREQUENT ROUNDING ON PATIENT. WOOD CARVER HAND ASSISTING PT WITH EATING. PT COMPLAINED OF PAIN OF 8/10 AND REQUESTED PAIN MEDICATION. GAVE PAIN MEDICATIONS PER ORDER. WILL CONTINUE TO MONITOR
[2018-08-09] MEDS: MORPHINE SULFATE 2 MG/ML SYR IVP PRN ×3 (12:17→23:25)
--- NOTE | 2018-08-09 12:50 | NUR ---
SPOKE WITH SHRUTHI FROM [employer]. INFORMED HER THAT WE ARE HAVING DIFFICULTY PLACING THIS PATIENT. WAS TOLD [facility] SAID THEY WOULD NEED AN MODESTO FROM [facility]. I INFORMED SHRUTHI OF THAT AND SHE SAID SHE WOULD CALL [facility]. SHE ALSO SUGGESTED I CALL [facility] TO SEE IF THEY COULD HELP WITH PLACEMENT. I CALLED NICOLAS LIU FROM [facility], , AND LEFT A MESSAGE FOR HER TO CALL ME.
[2018-08-09] MEDS: ALBUTEROL SULFATE/IPRATROPIU 3 ML SOL IH PRN (14:19)
--- NOTE | 2018-08-09 14:57 | NUR ---
ROUNDED ON PT. PT AWAKE IN BED. HAPPY. PT HAD NO COMPLAINTS OF PAIN AT THIS TIME. WILL CONTINUE TO MONITOR.
[2018-08-09 16:00] VITALS: BP 116/72
--- NOTE | 2018-08-09 16:20 | NUR ---
ROUNDED ON PT PT IS RESTING COMFORTABLY IN BED. NO COMPLAINTS OF PAIN. WILL CONTINUE TO MONITOR.
--- NOTE | 2018-08-09 17:00 | NUR ---
SPOKE WITH [facility]. THEY ACCEPTED MR. JETER BUT WONT ARRANGE TRANSPORT TIL TOMORROW SINCE THEY REQUIRE FORMS TO BE DONE BEFORE PT ARRIVAL AND THERE PATIENT ESCORT HAVE LEFT FOR THE DAY. EXPECT A CALL AROUND [phone] SHE SAID
[2018-08-09] MEDS: FERROUS SULFATE 325 MG TABEC PO SCH (17:12)
[2018-08-09] MEDS: THERAHONEY GEL 42.5 GM TP SCH (17:13)
[2018-08-09] MEDS: GAUZE TP SCH (17:14)
--- NOTE | 2018-08-09 17:21 | NUR ---
WOUND CARE DONE PER WOUND CARE NURSE RECOMMENDATION, PT ORAL WELL, PT NOW C/O PAIN 11/28 AFTER WOUND CARE AND POSITION CHANGES, MORPHINE GIVEN FOR PAIN. CALL REESE WITHIN REACH, SIDE RAILS UP, BED LOCKED IN LOW POSITION.
--- NOTE | 2018-08-09 18:55 | NUR ---
RECEIVED PATIENT ON ROOM AIR, PULSE OX SAT 96%. PATIENT DENIES SOB. NO HHN GIVEN; HHN NOT INDICATED AT THIS TIME. NO RESPIRATORY DISTRESS NOTED AT THIS TIME. WILL CONTINUE TO MONITOR.
--- NOTE | 2018-08-09 19:36 | NUR ---
HANDOFF REPORT GIVEN TO NIGHTSHIFT NURSE. PT RESTING IN BED. ALL SAFETY MEASURES IN PLACE
--- NOTE | 2018-08-09 19:37 | NUR ---
RECEIVED BEDSIDE REPORT FROM DAVIDE MENDIETA. PT IS AAO X 4. BEDBOUND. PERRY CATH IN PLACE. DRAINING CLEAR YELLOW URINE. PICC LINE R UPPER ARM TKO. R FA IV CLEAN DRY INTACT. PT WITH SMALL SACRAL WOUND WITH OPTIFOAM CLEAN DRY AND INTACT. PT WITH R HIP DRESSING DRY AND INTACT. PT WITH LEG CONTRACTED. BOOTS ON. PT ON CONTACT FOR POSITIVE MRSA OF NARES. PLAN OF CARE DISCUSSED. BED ALARM ON.
[2018-08-09] MEDS: traZODone 50 MG TAB PO SCH (20:53)
--- NOTE | 2018-08-09 20:53 | NUR ---
DUE MEDICATIONS GIVEN PT TOLERATED WELL. ALL NEEDS MET AT THIS TIME. CALL LIGHT WITHIN REACH.
--- NOTE | 2018-08-09 21:00 | NUR ---
PAGED DR CARLSON. PT HAVING PAIN.
--- NOTE | 2018-08-09 21:32 | NUR ---
LEG PAIN 6/10 NORCO GIVEN. WILL CONTINUE TO MONITOR. FOR EFFECTS.
--- NOTE | 2018-08-09 22:00 | NUR ---
PT CLEANED AND REPOSITION FOR COMFORT. PT TOLERATED WELL. ALL NEEDS MET AT THIS TIME. CALL LIGHT WITHIN REACH.
--- NOTE | 2018-08-09 23:25 | NUR ---
MORPHINE GIVEN FOR 8/10 LEG PAIN. PT TOLERATED WELL. ALL NEEDS MET AT THIS TIME. CALL LIGHT WITHIN REACH.
[2018-08-10] VITALS: BP 112/86
--- NOTE | 2018-08-10 00:06 | NUR ---
VITAL SIGNS ARE STABLE. ALL NEEDS MET AT THIS TIME. CALL LIGHT WITHIN REACH. WILL CONTINUE TO MONITOR.
[2018-08-10] MEDS: Z-GUARD PASTE TP SCH ×2 (01:09→13:01)
[2018-08-10] MEDS: THERAHONEY GEL 42.5 GM TP SCH ×2 (01:09→13:01)
--- NOTE | 2018-08-10 02:00 | NUR ---
PT IS SLEEPING COMFORTABLY IN BED. NO S/S OF DISTRESS. CALL LIGHT WITHIN REACH. WILL CONTINUE TO MONITOR.
[2018-08-10] MEDS: PIPER/TAZO 3.375GM/D5W PREMIX 50 ML IV SCH ×2 (04:33→13:01)
--- NOTE | 2018-08-10 04:33 | NUR ---
ZOSYN NOW INFUSING PER ORDERS. ALL NEEDS MET AT THIS TIME. CALL LIGHT WITHIN REACH. WILL CONTINUE TO MONITOR.
[2018-08-10] MEDS: MORPHINE SULFATE 2 MG/ML SYR IVP PRN ×2 (05:29→13:00)
--- NOTE | 2018-08-10 07:16 | NUR ---
GAVE BEDSIDE REPORT TO ELIER RIVERA RN. PT ENDORSED IN STABLE CONDITION.
--- NOTE | 2018-08-10 07:17 | NUR ---
RECEIVED BEDSIDE REPORT FROM ANAM DELGADO. PT STABLE, AWAKE, AND ALERT AND ORIENTED X4. NO SIGNS OF DISTRESS NOTED. DENIES PAIN OR SOB. NO REDNESS ,SWELLING, OR INFLAMMATION NOTED ON IV SITE. CALL REESE WITHIN REACH. BED IN LOWEST POSITION. SAFETY MEASURES IN PLACE. PLAN OF CARE REVIEWED.
[2018-08-10 07:28] LABS: BASOPHILS # (AUTO) 0.1 K/uL (0.00-0.22); BASOPHILS % (AUTO) 1.2 % (0.0-2.0); EOSINOPHILS # (AUTO) 0.4 K/uL (0-0.4); EOSINOPHILS % (AUTO) 5.3 % (0.0-4.0); HEMATOCRIT 25.2 % (36-52); LYMPHOCYTES # (AUTO) 1.5 K/uL (2.0-11.5); LYMPHOCYTES % (AUTO) 19.5 % (20.5-51.1); MEAN CORPUSCULAR HEMOGLOBIN 27 pg (27-31); MEAN CORPUSCULAR HGB CONC 32 g/dL (33-37); MEAN CORPUSCULAR VOLUME 83.1 fL (80-94); MONOCYTES # (AUTO) 0.5 K/uL (0.8-1.0); MONOCYTES % (AUTO) 6.9 % (1.7-9.3); NEUTROPHILS # (AUTO) 5.1 K/uL (1.8-7.7); NEUTROPHILS % (AUTO) 67.1 % (42.2-75.2); PLATELET COUNT (AUTO) 410 K/uL (140-450); RED BLOOD CELL COUNT(AUTO) 3.03 MIL/uL (4.20-6.10); RED CELL DISTRIBUTION WIDTH 20.5 % (11.6-13.7); WHITE BLOOD COUNT (AUTO) 7.7 K/uL (4.8-10.8)
[2018-08-10 07:48] LABS: ALBUMIN 2.4 g/dL (3.4-5.0); ANION GAP 13.3 (8-16); CARBON DIOXIDE 26.6 mmol/L (21-32); CREATININE 1.4 mg/dL (0.7-1.3); POTASSIUM 3.9 mmol/L (3.5-5.1); TOTAL BILIRUBIN 0.2 mg/dL (0.0-1.0)
[2018-08-10 08:00] VITALS: BP 120/74
[2018-08-10] MEDS: LACTULOSE 20 GM/30 ML UDC PO SCH ×2 (09:00→09:16)
[2018-08-10] MEDS: HYDROcodone/APAP 5/325 MG 1 TAB TAB PO PRN (09:15)
[2018-08-10] MEDS: FERROUS SULFATE 325 MG TABEC PO SCH (09:15)
[2018-08-10] MEDS: PANTOPRAZOLE 40 MG TABEC PO SCH (09:15)
[2018-08-10] MEDS: ZINC SULF 220 MG CAP PO SCH (09:15)
[2018-08-10] MEDS: LINEZOLID 600MG PREMIX 300 ML IV SCH (09:16)
[2018-08-10] MEDS: ASCORBIC ACID 500 MG TAB PO SCH (09:16)
--- NOTE | 2018-08-10 09:23 | NUR ---
ADMINISTERED SCHEDULED MEDICATIONS, PT TOLERATED WELL. NO OTHER NEEDS AT THIS TIME.
--- NOTE | 2018-08-10 10:15 | NUR ---
RECEIVED A CALL FROM SHRUTHI FROM [facility]. SHE SAID [facility] HAS ACCEPTED THE PATIENT. SHRUTHI IS IN THE PROCESS OF GETTING THE MODESTO AND AUTH FOR THEM. SHE SPOKE WITH KELLEN AT [facility]. SHE SAID WHEN WE GET A BED, USE [employer] FOR TRANSPORT. AUTH [id number].
--- NOTE | 2018-08-10 11:30 | NUR ---
FAMILY AT THE BEDSIDE. PT STABLE, AWAKE, AND ALERT.
--- NOTE | 2018-08-10 11:36 | NUR ---
08/10/18 RD FOLLOW UP COMPLETED PLEASE REFER TO NUTRITION ASSESSMENT UNDER CARE ACTIVITY FOR ESTIMATED NUTRITIONAL NEEDS. 1. CONTINUE NA [address] TO FOLLOW-UP 3-5 DAYS, MODERATE RISK SHASTA OLIVARES RD
--- NOTE | 2018-08-10 12:13 | NUR ---
RECEIVED A CALL FROM [facility]. THEY HAVE ACCEPTED THE PATIENT. THE PATIENT CAN GO TO ROOM [address] UNDER [address] LONG. [id number] [place] [phone] PHONE . I CALLED RAUL AND INFORMED HER THAT THE PATIENT WAS UNDER THE [facility] AND GAVE HER THE PHONE FOR THE CM SURESH PATE, . I ALSO INFORMED HER ABOUT THE PATIENT'S INSPECTOR MISSILE, ADILENE, FROM [facility] [phone]
[2018-08-10] MEDS: GAUZE TP SCH (13:01)
--- NOTE | 2018-08-10 13:10 | NUR ---
I WENT TO THE PATIENT'S ROOM AND INFORMED HIM ABOUT GOING TO [facility]. I LEFT HIM THE NAME OF THE FACILITY AND ROOM WITH THE ADDRESS AND PHONE. HE IS AGREEABLE TO GOING THERE. HE ASKED ME TO CALL GABY FROM THE [facility] AND ADILENE FROM [facility]. I CALLED AND LEFT MESSAGE FOR THEM TO CALL ME BACK. GABY [phone] ADILENE, [phone] I CALLED [facility], , AND ARRANGED TRANSPORT. CONFIRMATION NUMBER IS [id number]. I RECEIVED A CALL FROM HEATHER FROM [facility]. SAID [facility] THEY WILL MANAGER LSW PATIENT AT 2:30P.M. INFORMED ELIER RIVERA RN.
--- NOTE | 2018-08-10 13:25 | NUR ---
I CALLED GABY PATE FROM [facility] AND SPOKE WITH HER AND GAVE HER THE INFORMATION TO WHERE MR JETER WAS GOING, [facility]. I GAVE HER THE ADDRESS AND PHONE NUMBER AND ROOM NUMBER.
--- NOTE | 2018-08-10 13:30 | NUR ---
WOUND CARE PROVIDED, DRESSINGS CHANGED. PT REPOSITIONED. LINENS AND GOWN CHANGED.
--- NOTE | 2018-08-10 14:36 | NUR ---
GAVE REPORT TO [facility].
--- NOTE | 2018-08-10 14:50 | NUR ---
D/C INSTRUCTIONS AND PAPERWORK GIVEN. PT VERBALIZED UNDERSTANDING. QUESTIONS AND CONCERNS WERE ANSWERED. PICC LINE KEPT IN PLACE FOR IV ANTIBIOTICS TO BE GIVEN AT [facility]. NO REDNESS, SWELLING, OR INFLAMMATION NOTED ON IV LINE. VACCINES UP TO DATE. DISCHARGE PHOTOGRAPHS TAKEN. PT STABLE, AWAKE AND ALERT. PT PICKED UP BY [facility].
--- NOTE | 2018-08-10 15:28 | NUR ---
I CALLED ADILENE FROM [facility], [phone] KARTHIK LEFT A MESSAGE ON HER ANSWERING MACHINE TO WHERE THE PATIENT WILL BE GOING, [facility].
== END 2018-08-10 14:50 | DRG 466 ==
LOC: MED 13:10 → MTU 15:49
PROVIDERS: ADMIT Preventive Medicine Preventive Medicine/Occupational Environmental Medicine; ATTEND Preventive Medicine Preventive Medicine/Occupational Environmental Medicine
PROC: 0JB90ZZ Excision of Buttock Subcutaneous Tissue and Fascia, Open Approach (ICD-10-PCS; 2018-08-07)
PROC: 0JBL0ZZ Excision of Right Upper Leg Subcutaneous Tissue and Fascia, Open Approach (ICD-10-PCS; principal; 2018-08-07 15:00)
PROC: 02HV33Z Insertion of Infusion Device into Superior Vena Cava, Percutaneous Approach (ICD-10-PCS; 2018-08-08)
PROC: B548ZZA Ultrasonography of Superior Vena Cava, Guidance (ICD-10-PCS; 2018-08-08)
DX: T83.010A Breakdown (mechanical) of cystostomy catheter, initial encounter (principal); A41.81 Sepsis due to Enterococcus; E43 Unspecified severe protein-calorie malnutrition; L89.319 Pressure ulcer of right buttock, unspecified stage; L89.152 Pressure ulcer of sacral region, stage 2; N17.9 Acute kidney failure, unspecified; N39.0 Urinary tract infection, site not specified; Z68.1 Body mass index [BMI] 19.9 or less, adult; D64.9 Anemia, unspecified; E78.5 Hyperlipidemia, unspecified; G80.9 Cerebral palsy, unspecified; Z16.21 Resistance to vancomycin; E83.41 Hypermagnesemia; E83.52 Hypercalcemia; E87.5 Hyperkalemia; J45.909 Unspecified asthma, uncomplicated; D47.3 Essential (hemorrhagic) thrombocythemia; M25.561 Pain in right knee; M25.551 Pain in right hip; Y84.6 Urinary catheterization as the cause of abnormal reaction of the patient, or of later complication, without mention of misadventure at the time of the procedure; G89.29 Other chronic pain; N18.9 Chronic kidney disease, unspecified; Z22.322 Carrier or suspected carrier of Methicillin resistant Staphylococcus aureus; Z87.442 Personal history of urinary calculi; Z88.1 Allergy status to other antibiotic agents; Z93.59 Other cystostomy status; Z79.899 Other long term (current) drug therapy; Y92.89 Other specified places as the place of occurrence of the external cause
CPT/HCPCS: 36415; 71045; 73502; 73562; 80048; 80053; 81001; 82948; 83605; 83735; 84100; 84484; 85025; 85610; 85651; 85730; 86140; 87040; 87070; 87075; 87081; 87086; 87186; 87205; 88304; 93005; 94640; 96361; 96374; 99285; C1751; J1885; J2001; J2020; J2250; J2270; J2543; J3475; J3490; J7030; J7060; J7620; Q0092; Q0162

== ENCOUNTER 2021-01-04 18:52 | Emergency (ER) | payer OTHER, MEDICAID ==
[~2021-01-04] VITALS: Ht 162.6 cm; Wt 45.4 kg
[~2021-01-04 18:52] MED LIST changes: -ASCO500T45 PO; +ASCO500T95 PO; +LACT-103 PO; -LACT10SO1 PO; -METR250T2 PO; -ROC2I IV; -ZINC220C12 PO; +ZINC220C28 PO
[2021-01-04 19:50] VITALS: BP 121/75
--- NOTE | 2021-01-04 19:53 | NUR ---
TO LOBBY A/W BED VIA WHEELCHAIR
--- NOTE | 2021-01-04 21:13 | NUR ---
ERMD AT BEDSIDE.
--- NOTE | 2021-01-04 21:14 | NUR ---
ERMD VERBAL ORDER FOR VISCOUS LIDOCAINE AND ENEMA. ORDER PLACED.
[2021-01-04] MEDS ORDERED: SODIUM PHOSPHATE 118 ML ENEM RC ONE (21:15)
--- NOTE | 2021-01-04 21:25 | NUR ---
ERMD PERFORMING DIGITAL REMOVAL OF FECAL IMPACTION. PER ERMD NO ENEMA NEEDED AT THIS TIME.
[2021-01-04 22:02] VITALS: BP 121/75
--- NOTE | 2021-01-04 22:02 | NUR ---
Patient discharged with v/s stable. Written and verbal after care instructions given and explained. Patient verbalized understanding. Wheel Chair Assisted with by caregiver. All questions addressed prior to discharge. Advised to follow up with PMD. NO NURSING INTERVENTIONS NEEDED PRIOR TO DISCHARGE.
== END 2021-01-04 22:02 | disposition home or self-care (01) ==
LOC: MED 18:52
DX: K59.00 Constipation, unspecified (principal); J45.909 Unspecified asthma, uncomplicated; Z79.899 Other long term (current) drug therapy; Z79.51 Long term (current) use of inhaled steroids; Z79.891 Long term (current) use of opiate analgesic; Z88.1 Allergy status to other antibiotic agents
CPT/HCPCS: 99284

== ENCOUNTER 2021-02-15 18:06 | Inpatient (IN) | payer OTHER, MEDICAID ==
[~2021-02-15] VITALS: Ht 170.2 cm; Wt 45.4 kg
[2021-02-15 01:00] VITALS: BP 101/67
[2021-02-15 18:16] VITALS: BP 125/72
--- NOTE | 2021-02-15 18:41 | NUR ---
55 Y/O MALE BIB FAMILY HELPER C/O BILATERAL FLANK PAIN 5/10, STATES HE HAS "CATHETER NOT FLOWING RIGHT". DENIES FEVER/CHILLS, DENIES N/V/D. Afebrile. F/C bag has cloudy white sediment noted. Nephrostomy tube has thick garvey discharge into bag. Pt noted incontinent of BM with brief. Skin check resulted with MASD in the magaly area. Resp even and unlabored. AOX 4 GCS 15. Able to make all needs known. PMH: CEREBRAL PALSY, HTN, NEPHROSTOMY TUBE, Suprapubic F/C ALLERGIES: CIPRO, FLAGYL Home meds : Denies
--- NOTE | 2021-02-15 18:59 | NUR ---
IDANIA Ruiz at bedside assessing pt. Made aware of output in bags X2
--- NOTE | 2021-02-15 19:10 | NUR ---
Urine collected from suprapubic catheter
--- NOTE | 2021-02-15 19:16 | NUR ---
lab at bedside collecting blood
--- NOTE | 2021-02-15 19:24 | NUR ---
REPORT RECEIVED FROM ANAM STOUT. FOR CONTINUATION OF PATIENT CARE AT THIS TIME.
--- NOTE | 2021-02-15 19:28 | NUR ---
Pt report given to Kasandra. Transfer of care at this time.
--- NOTE | 2021-02-15 19:40 | NUR ---
ER MACHINE UNABLE TO COMPLETE URINE DIP AT THIS TIME. PER ERMD TO SEND URINE TO LAB. NO DIP IN ER REQUIRED AT THIS TIME.
[2021-02-15 19:41] LABS: BASOPHILS # (AUTO) 0.1 K/uL (0.00-0.22); BASOPHILS % (AUTO) 0.8 % (0.0-2.0); EOSINOPHILS # (AUTO) 0.5 K/uL (0-0.4); EOSINOPHILS % (AUTO) 6.1 % (0.0-4.0); HEMATOCRIT 42.4 % (36-52); HEMOGLOBIN 13.8 g/dL (12.0-18.0); LYMPHOCYTES # (AUTO) 0.9 K/uL (2.0-11.5); LYMPHOCYTES % (AUTO) 12.1 % (20.5-51.1); MEAN CORPUSCULAR HEMOGLOBIN 30 pg (27-31); MEAN CORPUSCULAR HGB CONC 32 g/dL (33-37); MEAN CORPUSCULAR VOLUME 93.6 fL (80-94); MONOCYTES # (AUTO) 0.5 K/uL (0.8-1.0); MONOCYTES % (AUTO) 6.4 % (1.7-9.3); NEUTROPHILS # (AUTO) 5.8 K/uL (1.8-7.7); NEUTROPHILS % (AUTO) 74.6 % (42.2-75.2); PLATELET COUNT (AUTO) 300 K/uL (140-450); RED BLOOD CELL COUNT(AUTO) 4.54 MIL/uL (4.20-6.10); RED CELL DISTRIBUTION WIDTH 16.1 % (11.6-13.7); WHITE BLOOD COUNT (AUTO) 7.8 K/uL (4.8-10.8)
--- NOTE | 2021-02-15 19:46 | NUR ---
Ultrasound at bedside.
[2021-02-15 19:53] LABS: ANION GAP 14.5 (8-16); CARBON DIOXIDE 23.5 mmol/L (21-32); CREATININE 0.9 mg/dL (0.6-1.3); TOTAL BILIRUBIN 0.1 mg/dL (0.0-1.0)
[2021-02-15 20:23] LABS: APPEARANCE,URINE CLOUDY (CLEAR); BILIRUBIN,URINE NEGATIVE (NEGATIVE); BLOOD, URINE 3+ (NEGATIVE); COLOR,URINE STRAW (YELLOW); UGLUCOSE NEGATIVE (NEGATIVE)
[2021-02-15 20:24] LABS: LEUKOCYTE ESTERASE ,URINE 3+ (NEGATIVE); NITRITE, URINE POSITIVE (NEGATIVE)
[2021-02-15 20:32] LABS: RBC,URINE 20-50 /HPF (0-5); WBC,URINE TOO MANY TO COUNT /HPF (0-5)
[2021-02-15] MEDS ORDERED: cefTRIAXone 2,000 MG in DEXTROSE 5% 100 ML IV ONE (20:40)
[2021-02-15] MEDS ORDERED: CEFP200T20 PO (20:43)
[2021-02-15] MEDS ORDERED: cefTRIAXone 1,000 MG VIAL ONE (20:45)
[2021-02-15] MEDS ORDERED: cefTRIAXone 2,000 MG VIAL ONE (20:46)
--- NOTE | 2021-02-15 20:50 | NUR ---
PATIENT LAYING IN BED LOCKED IN LOWEST POSITION W X2 SIDERAILS UP FOR PATIENT SAFETY. PATIENT CONNECTED TO MONITOR W VSS. FLANK PAIN 6/10 WANTS PAIN MEDICATION, ERMD MADE AWARE. URINE OUTPUT TO SUPRA PUBIC CATH BAG 150ML AT THIS TIME W SEDIMENTS NOTED TO BAG. PATIENT CALM AND COOPERATIVE. BREATHING EVEN AND UNLABORED, NAD NOTED, WILL CONTINUE TO MONITOR. CAREGIVER AT BEDSIDE.
[2021-02-15] MEDS ORDERED: ACETAMINOPHEN 325 MG TAB PO ONE (21:30)
--- NOTE | 2021-02-15 21:30 | NUR ---
Dr. Dunlap examining patient.
--- NOTE | 2021-02-15 22:35 | NUR ---
PT TAKEN TO CT
--- NOTE | 2021-02-15 22:45 | NUR ---
PT RETURN FROM CT
--- NOTE | 2021-02-15 22:51 | NUR ---
PATIENT LAYING IN BED LOCKED IN LOWEST POSITION W X2 SIDERAILS UP FOR PATIENT SAFETY. PATIENT CONNECTED TO MONITOR W VSS. BREATHING EVEN AND UNLABORED, NAD NOTED, WILL CONTINUE TO MONITOR.
[2021-02-15] MEDS ORDERED: traMADol 50 MG TAB PO PRN (22:55)
[2021-02-15] MEDS ORDERED: ALBUTEROL HFA MDI 90 MCG/ACTUATION 8 GM INH PRN (22:55)
[2021-02-15] MEDS ORDERED: LORazepam 2 MG/ML VIAL IVP PRN (22:55)
[2021-02-15] MEDS: DEXT 5% / NACL 0.45% 1,000 ML IV SCH (23:21)
--- NOTE | 2021-02-15 23:53 | NUR ---
REPORT CALLED TO ANAM STOUT FOR TRANSFER OF PATIENT CARE AT THIS TIME. PER ANAM STOUT READY FOR PATIENT TRANSFER IN 15 MINUTES.
--- NOTE | 2021-02-16 00:05 | NUR ---
PATIENT FC OUTPUT 300CC AT THIS TIME.
--- NOTE | 2021-02-16 00:20 | NUR ---
Patient will be admitted to care of DR. CARLSON. Admited to [facility]. Will go to room 104-A. Belongings list completed. Report to ANAM STOUT.
--- NOTE | 2021-02-16 01:00 | NUR ---
PT BROUGHT UP BY DIMPLE, HE IS AOX3-4 ON ROOM AIR. HE HAS A SUPRAPUBIC CATHETER INTACT AND DRAINING CLOUDY URINE. PT ALSO HAS LEFT SIDE NEPHROSTOMY TUBE DRAINING HUMA URINE. PT IS BEDBOUND WITH HX OF CP. HE HAS OLD HEALED SACRAL WOUND. PT HAS A 20G RIGHT F/A 20G INTACT AND RUNNING D5 1/2 NORMAL SALINE AT 100MLS/HR. V/S FOLLOWS: T 97.5 P 68 R20 B/P 101/67 02 92% ON ROOM AIR. AL FALLS PRECAUTIONS IN PLACE.
[2021-02-16 04:00] VITALS: BP 106/62
--- NOTE | 2021-02-16 04:30 | NUR ---
PT LYING IN BED, HE WAS TURNED, AND REPOSITIONED IN BED. IV SITE INTACT AND RUNNING NORMAL SALINE AT 100MLS/HR. DRAINED 650 OF CLOUDY AND FOUL SMELLING URINE FROM SUPER PUBIC CATHETER. NEPHRO TUBE HAS SCANT DARK URINE. V/S FOLLOWS: T 97.5 P 60 R 20 B/P 106/62 02 96% ON ROOM AIR. ALL ORDERED PRECAUTIONS IN PLACE.
[2021-02-16 06:46] LABS: BASOPHILS % (AUTO) 0.5 % (0.0-2.0); EOSINOPHILS # (AUTO) 0.5 K/uL (0-0.4); EOSINOPHILS % (AUTO) 9.2 % (0.0-4.0); HEMATOCRIT 39.2 % (36-52); HEMOGLOBIN 12.7 g/dL (12.0-18.0); LYMPHOCYTES # (AUTO) 0.8 K/uL (2.0-11.5); LYMPHOCYTES % (AUTO) 13.6 % (20.5-51.1); MEAN CORPUSCULAR HEMOGLOBIN 30 pg (27-31); MEAN CORPUSCULAR HGB CONC 32 g/dL (33-37); MONOCYTES # (AUTO) 0.4 K/uL (0.8-1.0); MONOCYTES % (AUTO) 6.8 % (1.7-9.3); NEUTROPHILS # (AUTO) 4.2 K/uL (1.8-7.7); NEUTROPHILS % (AUTO) 69.9 % (42.2-75.2); PLATELET COUNT (AUTO) 242 K/uL (140-450); RED BLOOD CELL COUNT(AUTO) 4.22 MIL/uL (4.20-6.10); RED CELL DISTRIBUTION WIDTH 16.1 % (11.6-13.7); WHITE BLOOD COUNT (AUTO) 5.9 K/uL (4.8-10.8)
[2021-02-16 07:00] LABS: ANION GAP 14.3 (8-16); CARBON DIOXIDE 23.2 mmol/L (21-32); CREATININE 0.9 mg/dL (0.6-1.3); POTASSIUM 3.5 mmol/L (3.5-5.1)
--- NOTE | 2021-02-16 07:15 | NUR ---
RECEIVED BEDSIDE REPORT FROM DOUBLING MACHINE OPERATOR RN. PATIENT RESTING IN BED. NO S/S OF DISTRESS. ALL SAFETY PRECAUTIONS IN PLACE.
--- NOTE | 2021-02-16 07:18 | NUR ---
DR RAMIREZ AT BEDSIDE TO ASSESS PATIENT AND DISCUSS POC.
[2021-02-16 07:22] LABS: PHOSPHORUS 3.3 mg/dL (2.5-4.9)
[2021-02-16] MEDS ORDERED: NON-FORMULARY ITEM (Omeprazole 40 MG) PO SCH (07:30)
[2021-02-16 08:00] VITALS: BP 115/69
[2021-02-16] MEDS: DEXT 5% / NACL 0.45% 1,000 ML IV SCH ×2 (08:15→18:45)
--- NOTE | 2021-02-16 08:57 | NUR ---
PATIENT HAS BEEN SCREENED AND CATEGORIZED HIGH NUTRITION RISK. PATIENT WILL BE SEEN WITHIN 1-2 DAYS OF ADMISSION. 02/16/21-02/17/[address]
[2021-02-16] MEDS: LACTULOSE 20 GM/30 ML UDC PO SCH (09:00)
[2021-02-16] MEDS ORDERED: OMEGA PO SCH (09:00)
[2021-02-16] MEDS ORDERED: FISH OIL PO SCH (09:00)
[2021-02-16] MEDS ORDERED: FATTY ACIDS PO SCH (09:00)
[2021-02-16] MEDS: PANTOPRAZOLE 40 MG TABEC PO SCH (09:00)
[2021-02-16] MEDS: ZINC SULF 220 MG CAP PO SCH (09:00)
[2021-02-16] MEDS ORDERED: NON-FORMULARY ITEM (Lactulose 30 ML) PO SCH (09:00)
[2021-02-16] MEDS: ASCORBIC ACID 500 MG TAB PO SCH (09:00)
--- NOTE | 2021-02-16 09:25 | NUR ---
SCHEDULED MEDICATIONS NOT ADMINISTERED PATIENT IS NPO. PATIENT VERBALIZED UNDERSTANDING. PATIENT HAS A 20G IV AT THE RIGHT HAND THAT IS DRY, PATENT, INTACT, FLUSHING IVF WELL. ALL SAFETY PRECAUTIONS IN PLACE.
--- NOTE | 2021-02-16 11:30 | NUR ---
PATIENT RESTING IN BED. NO S/S OF DISTRESS. ALL SAFETY PRECAUTIONS IN PLACE.
--- NOTE | 2021-02-16 11:45 | NUR ---
UNABLE TO OBTAIN URINE CULTURE FROM NEPHRO TUBE PER MD ORDER PATIENT DOES NOT HAVE ANY FLUIDS DRAINING FROM THIS SITE. WILL CONTINUE TO MONITOR AND OBTAIN CULTURE ABLE.
--- NOTE | 2021-02-16 11:55 | NUR ---
DC PLANNIN YRS OLD MALE PATIENT WAS ADMITTED FROM [facility] WITH A DX OF HYDRONEPHROSIS AND UTI. PATIENT HAS A HX OF CEREBRAL PALSY, ASTHMA, HTN AND NEPHROSTOMY TUBE PLACEMENT. CT ABD/PELVIS AND RENAL US SHOWED MILD RIGHT HYDRONEPHROSIS AND MODERATE LEFT HYDRONEPHROSIS . RAPID COVIDT TEST, URINE AND BLOOD CULTURE PENDING. ADMINISTERED IVF, IV ABX ROCEPHIN AND CONTINUED HOME MEDS. CONSULTED WITH ID AND UROLOGIST. DC PLAN TO RETURN HOME WITH NURSE TECH WHEN STABLE. CM TO FOLLOW Addendum: 02/18/21 at 1524 by Ying Cantu RN DC PLANNING: URINE CULTURE CAME BACK WITH ESBL AND MDRO PATIENT HAS FEVER 102.1 TYLENOL GIVEN TEMP 99.[address] CARLSON DISCUSSED THE DC PLAN , STATED WILL DISCUSS WITH ID FOR ABX AND NO DC TODAY BECAUSE OF HIGH TEMP. CALLED THE [facility] SPOKE WITH JAYMIE STATED THEY DON'T GIVE IV ABX , REQUESTING PO ABX. AWAITING FOR DR FREEMAN INPUT. CM TO FOLLOW Addendum: 02/19/21 at 1508 by Ying Cantu RN DC PLANNING: CALLED [facility] SPOKE WITH ROSEANN MENDIETA JOURNEYMAN MEAT CUTTER OF THE HOME STATED THEY CAN'T GIVE IV IN THE [facility] PER FARIDEH EDGER MACHINE OPERATOR OF THE PATIENT PREFERRED PT TO GO TO [facility]. SPOKE WITH PATIENT EXPLAINED HE NEEDS IV ABX FOR ESBL OF THE URINE AND THE [facility] CAN NOT GIVE THE ABX. PT AGREED AND WILLING TO GO TO [facility] FOR 10 MORE DAYS. FAXED TO [facility] SPOKE WITH LOR AND PATIENT CAN GO TO ROOM 18B # TO GIVE REPORT [phone]. [facility] ARRANGED TRANSPORT AND WINDOWS APPLICATION DEVELOPER TIME BETWEEN 6-7 PM NOTIFIED TOMMIE MENDIETA
[2021-02-16 11:56] LABS: PROTHROMBIN TIME 10.2 secs (10.8-13.4)
--- NOTE | 2021-02-16 13:22 | NUR ---
RECEIVED CALL FROM RADIOLOGY. THE RADIOLOGIST SCHEDULED FOR PROCEDURE HAS AN EMERGENCY SURGERY, SO PROCEDURE WILL NEED TO BE POSTPONED. NOTIFIED.
[2021-02-16] MEDS: MEROPENEM 1,000 MG in NACL 0.9% 100 ML IV SCH ×2 (13:39→21:38)
--- NOTE | 2021-02-16 15:50 | NUR ---
PATIENT RESTING IN BED. NO S/S OF DISTRESS. ALL SAFETY PRECAUTIONS IN PLACE.
[2021-02-16 16:00] VITALS: BP 110/63
--- NOTE | 2021-02-16 16:12 | NUR ---
PMHX: CEREBRAL PALSY; ASTHMA AWAKE AND ALERT C/O SOB PATIENT UNABLE OT FACILITATE USE OF [facility] TECHNICIAN TO CHANGE HHN THERAPY
[2021-02-16] MEDS ORDERED: ALBUTEROL SULFATE/IPRATROPIU 3 ML SOL IH ONE (16:16)
--- NOTE | 2021-02-16 16:18 | NUR ---
TOLERATED HHN THERAPY WELL WITHOUT COMPLICATIONS NOTED STRONG LOOSE NPC DURING THERAPY IMPROVED AERATION AIRWAY PATENT
[2021-02-16] MEDS ORDERED: ALBUTEROL SULFATE/IPRATROPIU 3 ML SOL IH PRN (16:35)
[2021-02-16] MEDS: MORPHINE SULFATE 2 MG/ML SYR IVP PRN (18:16)
--- NOTE | 2021-02-16 18:22 | NUR ---
PATIENT COMPLAINED OF 7/10 LOWER BACK PAIN. ADMINISTERED PRN PAIN MEDICATION PER DR ORDER. PATIENT VERBALIZED UNDERSTANDING. ALL SAFETY PRECAUTIONS IN PLACE.
--- NOTE | 2021-02-16 19:28 | NUR ---
ENDORSED PATIENT TO DRY ICE MACHINE OPERATOR RN FOR CONTINUITY OF CARE. PATIENT IS STABLE.
--- NOTE | 2021-02-16 19:30 | NUR ---
RECD. PATIENT RESTING IN BED RESTING IN BED, AWAKE, A/OX2. RESPIRATION EVEN AND UNLABORED. IV OF D5 0.45%NS INFUSING AT 100 ML/HR. WITH SUPRAPUBIC CATHETER DRAINING MODERATE AMOUNT OF CLEAR YELLOW URINE, LEFT NEPHROSTOMY TUBE WITHOUT DRAINAGE NOTED. PATIENT IS BEDBOUND. SAFETY MEASURES ENFORCED. BED IN THE LOWEST POSITION, CALL LIGHT IN REACH. DENIES PAIN 0/10.
[2021-02-16 20:00] VITALS: BP 93/57
--- NOTE | 2021-02-16 20:00 | NUR ---
Patient's Plan of Care was discussed and reviewed with INTELLIGENCE SENIOR SERGEANT: RUTH BALLARD
[2021-02-16] MEDS: traZODone 50 MG TAB PO SCH (20:59)
--- NOTE | 2021-02-16 21:02 | NUR ---
WATCHING TV. SCHEDULED MEDICATION ADMINISTERED. TOLERATED WELL.
[2021-02-16] MEDS: LINEZOLID 600MG PREMIX 300 ML IV SCH (21:58)
--- NOTE | 2021-02-17 | NUR ---
SLEEPING COMFORTABLY IN BED.
--- NOTE | 2021-02-17 02:00 | NUR ---
ASLEEP IN BED, NO RESPIRATORY DISTRESS NOTED.
--- NOTE | 2021-02-17 04:00 | NUR ---
AWAKE IN BED, WARM BLANKET GIVEN. ADVISED TO GO BACK TO SLEEP.
[2021-02-17] MEDS: DEXT 5% / NACL 0.45% 1,000 ML IV SCH ×2 (04:15→14:15)
[2021-02-17] MEDS: MEROPENEM 1,000 MG in NACL 0.9% 100 ML IV SCH ×3 (05:38→21:37)
[2021-02-17] MEDS: HYDROcodone/APAP 5/325 MG 1 TAB TAB PO PRN ×2 (05:45→23:37)
--- NOTE | 2021-02-17 07:15 | NUR ---
CONDITION REMAIN STABLE. ENDORSED TO AM SHIFT NURSE FOR CONTINUITY OF CARE.
--- NOTE | 2021-02-17 07:17 | NUR ---
RECEIVED REPORT FROM ROLL FORMER RN FOR CONTINUITY OF CARE. PATIENT IS AWAKE. NO S/S OF DISTRESS. NO COMPLAINTS OF PAIN. RESPIRATIONS ARE EVEN AND UNLABORED ON ROOM AIR. ALL SAFETY PRECAUTIONS IN PLACE.
[2021-02-17 07:32] LABS: BASOPHILS % (AUTO) 0.6 % (0.0-2.0); EOSINOPHILS # (AUTO) 0.4 K/uL (0-0.4); EOSINOPHILS % (AUTO) 6.7 % (0.0-4.0); HEMATOCRIT 37.9 % (36-52); HEMOGLOBIN 12.2 g/dL (12.0-18.0); LYMPHOCYTES # (AUTO) 0.6 K/uL (2.0-11.5); LYMPHOCYTES % (AUTO) 10.7 % (20.5-51.1); MEAN CORPUSCULAR HEMOGLOBIN 30 pg (27-31); MEAN CORPUSCULAR HGB CONC 32 g/dL (33-37); MEAN CORPUSCULAR VOLUME 94.2 fL (80-94); MONOCYTES # (AUTO) 0.5 K/uL (0.8-1.0); MONOCYTES % (AUTO) 8.2 % (1.7-9.3); NEUTROPHILS # (AUTO) 4.3 K/uL (1.8-7.7); NEUTROPHILS % (AUTO) 73.8 % (42.2-75.2); PLATELET COUNT (AUTO) 233 K/uL (140-450); RED BLOOD CELL COUNT(AUTO) 4.02 MIL/uL (4.20-6.10); RED CELL DISTRIBUTION WIDTH 15.8 % (11.6-13.7); WHITE BLOOD COUNT (AUTO) 5.8 K/uL (4.8-10.8)
[2021-02-17 08:00] VITALS: BP 99/58
[2021-02-17] MEDS: LACTULOSE 20 GM/30 ML UDC PO SCH (08:04)
[2021-02-17] MEDS: ASCORBIC ACID 500 MG TAB PO SCH (08:05)
[2021-02-17] MEDS: ZINC SULF 220 MG CAP PO SCH (08:05)
[2021-02-17] MEDS: PANTOPRAZOLE 40 MG TABEC PO SCH (08:05)
[2021-02-17 08:10] LABS: ANION GAP 11.2 (8-16); CREATININE 0.9 mg/dL (0.6-1.3); POTASSIUM 3.2 mmol/L (3.5-5.1)
[2021-02-17] MEDS: LINEZOLID 600MG PREMIX 300 ML IV SCH ×2 (08:11→23:01)
--- NOTE | 2021-02-17 08:15 | NUR ---
ADMINISTERED SCHEDULED MEDICATIONS. HELD PO MEDS PATIENT REMAINS NPO. PATIENT VERBALIZED UNDERSTANDING. IVF RUNNING WELL. IV AT RIGHT FOREARM IS DRY, INTACT, AND PATENT. PATIENT IS ON ROOM AIR AND RESPIRATIONS ARE EVEN AND UNLABORED. ALL SAFETY PRECAUTIONS IN PLACE.
--- NOTE | 2021-02-17 08:40 | NUR ---
RECEIVED CALL FROM LAB. PATIENT IS POSITIVE FOR MRSA OF THE NARES.
[2021-02-17] MEDS: MORPHINE SULFATE 2 MG/ML SYR IVP PRN ×2 (10:24→18:03)
--- NOTE | 2021-02-17 10:25 | NUR ---
PATIENT COMPLAINED OF 7/10 PAIN. ADMINISTERED PRN PAIN MEDICATION PER MD ORDER. PATIENT VERBALIZED UNDERSTANDING. SAFETY PRECAUTIONS IN PLACE.
--- NOTE | 2021-02-17 13:10 | NUR ---
DR MAXWELL AT BEDSIDE WITH PATIENT DISCUSSING PROCEDURE AND OBTAINING CONSENT. PATIENT VERBALIZED UNDERSTANDING.
[2021-02-17] MEDS ORDERED: MIDAZOLAM 5 MG/5 ML VIAL ONE (13:28)
[2021-02-17] MEDS ORDERED: fentaNYL citrate 0.05 MG/ML VIAL ONE (13:28)
[2021-02-17] MEDS ORDERED: LIDOCAINE 2% 1000 MG/50 ML VIAL INJ ONE (13:29)
[2021-02-17] MEDS ORDERED: LIDOCAINE MPF 1% 0 ML ONE (13:31)
[2021-02-17] MEDS ORDERED: LIDOCAINE 1% 500 MG/50 ML VIAL ONE (13:33)
--- NOTE | 2021-02-17 13:37 | NUR ---
RADIOLOGY AT BEDSIDE TO TAKE PATIENT FOR PROCEDURE WITH DR KODY MAXWELL. PATIENT IS STABLE.
[2021-02-17 16:00] VITALS: BP 113/73
--- NOTE | 2021-02-17 16:15 | NUR ---
PATIENT RETURNED FROM PROCEDURE. PATIENT IS STABLE.
[2021-02-17] MEDS: CHLORHEXADINE GLUC 2% CLOTH TP SCH (17:57)
[2021-02-17] MEDS: MUPIROCIN CA NASAL 2% 1GM TUBE NS SCH (17:57)
--- NOTE | 2021-02-17 19:33 | NUR ---
ENDORSED PATIENT TO COMMERCIAL LOAN MANAGER RN FOR CONTINUITY OF CARE. PATIENT IS STABLE.
--- NOTE | 2021-02-17 19:34 | NUR ---
RECEIVED PATIENT FROM MORNING RN.PATIENT IS IN BED RESTING. PATIENT IS A&OX2. HE IS ABLE TO VERBALIZE NEEDS. BREATHING IS UNLABORED AND EVEN. IV TO RFA 20G IS PATENT AND INFUSING PROPERLY NO REDNESS NOTED TO SITE. IV INFUSING D5 0.45%NS INFUSING AT 100ML/HR. SKIN IS INTACT. PATIENT HAS SUPRAPUBIC CATHETER WITH YELLOW URINE FLOWING. PATIENT ALSO HAS NEPHROSTOMY TUBE IN PLACE AND DRAINING LIGHT PINK URINE. NO COMPLAINTS OF PAIN OR DISCOMFORT. WILL CONTINUE TO MONITOR.
[2021-02-17] MEDS: traZODone 50 MG TAB PO SCH (21:30)
--- NOTE | 2021-02-17 21:30 | NUR ---
ADMINISTERED SCHEDULED MEDICATION TO PATIENT. AT THIS TIME ALSO NOTED PATIENT HAD A SLIGHT FEVER. ADMINISTERED TYLENOL. INSTITUTED COOLING MEASURES. WILL CONTINUE TO MONITOR.
[2021-02-17] MEDS: ACETAMINOPHEN 325 MG TAB PO PRN (21:31)
--- NOTE | 2021-02-17 21:37 | NUR ---
SCHEDULED IV PB MEDICATION ADMINISTERED BY ANAM STOUT.
--- NOTE | 2021-02-17 22:30 | NUR ---
REASSESSED PATIENT TEMPERATURE. NO FEVER NOTED.
--- NOTE | 2021-02-17 22:32 | NUR ---
CALLED MD REGARDING PATIENT NPO DIET. DIET WAS CHANGED FROM NPO TO REGULAR DIET. PATIENT REQUEST FOOD. WAS GIVEN A SANDWICH.TOLERATED WELL.
--- NOTE | 2021-02-17 23:00 | NUR ---
OBTAINED URINE CULTURE FROM NEPHROSTOMY TUBE. PER MD ORDER. SENT SPECIMEN TO LAB. NEPHROSTOMY TUBE DRAINING YELLOW CLEAR URINE.
--- NOTE | 2021-02-17 23:37 | NUR ---
PATIENT COMPLAINT OF PAIN. STATED PAIN ORIGINATED FROM HIS BACK. PATIENT RATE PAIN 7 OUT OF 10. PAIN MEDICATION ADMINISTERED.
[2021-02-18] VITALS: BP 118/71
[2021-02-18] MEDS: DEXT 5% / NACL 0.45% 1,000 ML IV SCH ×4 (00:15→20:15)
--- NOTE | 2021-02-18 00:37 | NUR ---
REASSESSED PATIENT PAIN. PATIENT IN BED RESTING COMFORTABLY. WILL CONTINUE TO MONITOR.
--- NOTE | 2021-02-18 02:30 | NUR ---
PATIENT RESTING COMFORTABLY IN BED.
--- NOTE | 2021-02-18 04:30 | NUR ---
PATIENT REQUEST SOMETHING TO DRINK. BROUGHT CRANBERRY JUICE. PATIENT TOLERATED WELL.
[2021-02-18] MEDS: MEROPENEM 1,000 MG in NACL 0.9% 100 ML IV SCH ×3 (06:06→20:29)
--- NOTE | 2021-02-18 06:48 | NUR ---
CLOSING NOTE. PATIENT IS RESTING IN BED. RESPIRATIONS EVEN AND UNLABORED ON RA. NO PAIN OR DISCOMFORT NOTED. NO SIGNS OF DISTRESS NOTED. SUPRAPUBIC CATHETER AND NEPHROSTOMY TUBE IN PLACE AND PATENT. DRAINING YELLOW FLUID. IV INTACT AND PATENT. NO REDNESS OR INFLAMMATION NOTED. BED IS IN LOWEST POSITION. CALL LIGHT WITHIN REACH. SAFETY MEASURES IN PLACE. ALL NEEDS MET THROUGHOUT BOILER ERECTOR. WILL ENDORSE TO DAY NURSE.
--- NOTE | 2021-02-18 07:15 | NUR ---
DR. RAMIREZ CAME AND CHANGED THE SUPRAPUBIC CATHETER AND CONNECT TO PERRY BAG. INSTRUCTED TO INFORMED AM NURSE TO FLUSH THE CATHETER IF NO DRAINAGE NOTED.
--- NOTE | 2021-02-18 07:30 | NUR ---
ENDORSED PATIENT TO DAY SHIFT RN FOR CONTINUITY OF CARE. PATIENT IS STABLE AND IN BED RESTING.
--- NOTE | 2021-02-18 07:32 | NUR ---
RECEIVED BEDSIDE REPORT FROM MAORI LIAISON ADVISER NURSE FOR CONTINUITY OF CARE. PATIENT IS IN BED RESTING. PATIENT IS A&OX2. HE IS ABLE TO VERBALIZE NEEDS. BREATHING IS UNLABORED AND EVEN. IV TO RFA 20G IS PATENT AND INFUSING PROPERLY NO REDNESS NOTED TO SITE. IV INFUSING WELL. SKIN IS WARM, DRY, AND NON-INTACT. NOTED SACRAL WOUND REINFORCED WITH DRESSING. PATIENT HAS SUPRAPUBIC CATHETER WITH YELLOW URINE FLOWING. PATIENT ALSO HAS NEPHROSTOMY TUBE IN PLACE AND DRAINING YELLOW URINE. NO COMPLAINTS OF PAIN OR DISCOMFORT. PLAN OF CARE DISCUSSED. SAFETY PRECAUTIONS IN PLACE. WILL CONTINUE TO MONITOR. Addendum: 02/19/21 at 0844 by García Martino RN RN SKIN IS WARM, DRY, AND INTACT WITH REDNESS*
[2021-02-18 08:00] VITALS: BP 109/64
[2021-02-18] MEDS: ASCORBIC ACID 500 MG TAB PO SCH (08:21)
[2021-02-18] MEDS: HYDROcodone/APAP 5/325 MG 1 TAB TAB PO PRN (08:22)
[2021-02-18] MEDS: PANTOPRAZOLE 40 MG TABEC PO SCH (08:22)
[2021-02-18] MEDS: ZINC SULF 220 MG CAP PO SCH (08:22)
[2021-02-18] MEDS: LACTULOSE 20 GM/30 ML UDC PO SCH (08:23)
[2021-02-18] MEDS: LINEZOLID 600MG PREMIX 300 ML IV SCH ×2 (08:23→21:00)
[2021-02-18] MEDS: ONDANSETRON 4 MG TAB PO PRN ×3 (09:35→14:49)
--- NOTE | 2021-02-18 09:35 | NUR ---
PATIENT VOMITED AND COMPLAINED OF NAUSEA. ADMINISTERED ZOFRAN PO PER MD ORDERED
--- NOTE | 2021-02-18 11:30 | NUR ---
CHECKED ON PATIENT. PATIENT IS STABLE. NO DISTRESS NOTED. DENIES PAIN. WILL CONTINUE TO MONITOR
--- NOTE | 2021-02-18 11:30 | NUR ---
CHECKED ON PATIENT. PT IS STABLE. NO DISTRESS NOTED. WILL CONTINUE TO MONITOR.
--- NOTE | 2021-02-18 13:10 | NUR ---
ALL SCHEDULED MEDS GIVEN. PT IS STABLE. NO DISTRESS NOTED. WILL CONTINUE TO MONITOR
[2021-02-18] MEDS: ACETAMINOPHEN 325 MG TAB PO PRN (15:17)
--- NOTE | 2021-02-18 15:17 | NUR ---
PATIENT'S TEMP WAS 100.7. ADMINISTERED TYLENOL PRN PER MD ORDERED.
--- NOTE | 2021-02-18 15:45 | NUR ---
ALL SCHEDULED MEDICATIONS GIVEN. PT IS STABLE. NO DISTRESS NOTED. WILL CONTINUE TO MONITOR. Addendum: 02/18/21 at 1918 by García Martino RN RN WRONG TIME
[2021-02-18 16:00] VITALS: BP 104/64
[2021-02-18] MEDS: MUPIROCIN CA NASAL 2% 1GM TUBE NS SCH (16:26)
[2021-02-18] MEDS: CHLORHEXADINE GLUC 2% CLOTH TP SCH (16:26)
--- NOTE | 2021-02-18 17:45 | NUR ---
ALL SCHEDULED MEDICATIONS GIVEN. PT IS STABLE. NO DISTRESS NOTED. WILL CONTINUE TO MONITOR.
--- NOTE | 2021-02-18 19:40 | NUR ---
pt was seen and assessed. pt on room air. spo2 97%. pt is in no respiratory distress at this time. will continue to monitor.
--- NOTE | 2021-02-18 19:40 | NUR ---
ENDORSED TO COMMERCIAL LINES ASSISTANT NURSE FOR CONTINUITY OF CARE. PT IS STABLE.
--- NOTE | 2021-02-18 20:00 | NUR ---
PATIENT WAS RECEIVED IN BED ALERT AND COHERENT, NO RESPIRATORY DISTRESS, DENIES ANY PAIN.
[2021-02-18] MEDS: traZODone 50 MG TAB PO SCH (21:00)
--- NOTE | 2021-02-18 21:05 | NUR ---
ALL DUE MEDS WERE GIVEN BY MOUTH AND IV, TOLERATED WELL BY THE PATIENT. SPLIT GAUZE DRESSING APPLIED IN THE SUPRAPUBIC INSERTION SITE.
--- NOTE | 2021-02-18 22:00 | NUR ---
IV ZYVOX 600 MG WAS GIVEN VIA IVPB, TOLERATED WELL BY THE PATIENT.
[2021-02-19] VITALS: BP 105/57
--- NOTE | 2021-02-19 | NUR ---
PATIENT WAS CALMLY ASLEEP AT THIS TIME, REGULAR AND EQUAL RISE AND FALL OF CHEST.
--- NOTE | 2021-02-19 02:00 | NUR ---
PATIENT WAS CALMLY ASLEEP AT THIS TIME, REGULAR AND EQUAL RISE AND FALL OF CHEST.
[2021-02-19] MEDS: MEROPENEM 1,000 MG in NACL 0.9% 100 ML IV SCH ×2 (04:27→14:08)
--- NOTE | 2021-02-19 05:00 | NUR ---
VITAL SIGNS ARE WITHIN THE NORMAL LIMIT.
[2021-02-19] MEDS: DEXT 5% / NACL 0.45% 1,000 ML IV SCH (06:00)
[2021-02-19 06:30] LABS: BASOPHILS % (AUTO) 0.8 % (0.0-2.0); EOSINOPHILS # (AUTO) 0.6 K/uL (0-0.4); EOSINOPHILS % (AUTO) 15.9 % (0.0-4.0); HEMOGLOBIN 11.6 g/dL (12.0-18.0); LYMPHOCYTES # (AUTO) 0.6 K/uL (2.0-11.5); LYMPHOCYTES % (AUTO) 15.2 % (20.5-51.1); MEAN CORPUSCULAR HEMOGLOBIN 31 pg (27-31); MEAN CORPUSCULAR HGB CONC 32 g/dL (33-37); MEAN CORPUSCULAR VOLUME 94.4 fL (80-94); MONOCYTES # (AUTO) 0.4 K/uL (0.8-1.0); MONOCYTES % (AUTO) 10.2 % (1.7-9.3); NEUTROPHILS # (AUTO) 2.2 K/uL (1.8-7.7); NEUTROPHILS % (AUTO) 57.9 % (42.2-75.2); PLATELET COUNT (AUTO) 208 K/uL (140-450); RED BLOOD CELL COUNT(AUTO) 3.82 MIL/uL (4.20-6.10); RED CELL DISTRIBUTION WIDTH 15.6 % (11.6-13.7); WHITE BLOOD COUNT (AUTO) 3.9 K/uL (4.8-10.8)
[2021-02-19 07:06] LABS: ALBUMIN 2.4 g/dL (3.4-5.0); ANION GAP 11.5 (8-16); CARBON DIOXIDE 24.7 mmol/L (21-32); CREATININE 1.1 mg/dL (0.6-1.3); MAGNESIUM 1.9 mg/dL (1.8-2.4); PHOSPHORUS 1.7 mg/dL (2.5-4.9); POTASSIUM 3.2 mmol/L (3.5-5.1)
[2021-02-19 07:25] LABS: TOTAL BILIRUBIN 0.1 mg/dL (0.0-1.0)
--- NOTE | 2021-02-19 07:25 | NUR ---
ALL REPORTS WERE GIVEN, TRANSFER OF CARE ENDORSED.
--- NOTE | 2021-02-19 07:36 | NUR ---
RECEIVED BEDSIDE REPORT FROM TILE MOLDER HAND NURSE FOR CONTINUITY OF CARE. PATIENT IS IN BED RESTING. PATIENT IS A&OX2. HE IS ABLE TO VERBALIZE NEEDS. BREATHING IS UNLABORED AND EVEN. IV TO RFA 20G IS PATENT. IV INFUSING WELL. SKIN IS WARM, DRY, AND INTACT WITH REDNESS. NOTED SACRAL WOUND REINFORCED WITH DRESSING. PATIENT HAS SUPRAPUBIC CATHETER WITH YELLOW URINE FLOWING. PATIENT ALSO HAS NEPHROSTOMY TUBE IN PLACE AND DRAINING YELLOW URINE. NO COMPLAINTS OF PAIN OR DISCOMFORT. PLAN OF CARE DISCUSSED. SAFETY PRECAUTIONS IN PLACE. WILL CONTINUE TO MONITOR.
[2021-02-19 08:00] VITALS: BP 115/85
[2021-02-19] MEDS: ZINC SULF 220 MG CAP PO SCH (09:33)
[2021-02-19] MEDS: ASCORBIC ACID 500 MG TAB PO SCH (09:34)
[2021-02-19] MEDS: PANTOPRAZOLE 40 MG TABEC PO SCH (09:34)
[2021-02-19] MEDS: LACTULOSE 20 GM/30 ML UDC PO SCH (09:34)
[2021-02-19] MEDS: ONDANSETRON 4 MG TAB PO PRN (09:34)
--- NOTE | 2021-02-19 09:34 | NUR ---
PT COMPLAINED OF NAUSEA AND PRN MEDICATION FOR NAUSEA PER MD WAS GIVEN.
[2021-02-19] MEDS: LINEZOLID 600MG PREMIX 300 ML IV SCH (09:35)
--- NOTE | 2021-02-19 12:45 | NUR ---
SKIN ASSESSMENT DONE, PT. WITH MULTIPLES HEALED OLD SCARS TISSUE TO TRUNK OF BODY, NO OPEN WOUND.RECOMMEND HYDRAGUARD FOR PROTECTION, POC DISCUSSED WITH PRIMARY RN.AND PT. PT. VERBALIZES UNDERSTANDING. PT. WITH LOW BRIGITTE SCALE AT HIGH RISK, CONTINUE TO FOLLOW PRESSURE INJURY PREVENTION INTERVENTIONS. -TURN AND REPOSITION PATIENT Q 2H -ASSESS AND MONITOR SKIN CONDITION DURING POSITION CHANGE -OFFLOAD BILATERAL HEELS BY PLACING PILLOWS UNDER CALVES AT ALL TIMES, UNLESS OTHERWISE CONTRAINDICATED -PRESSURE REDISTRIBUTION SURFACE AND OFFLOADING SACRALCOCCYX -KEEP SKIN CLEAN AND DRY AT ALL TIMES.
[2021-02-19] MEDS ORDERED: DOCUSATE SODIUM 250 MG GELCAP PO SCH (12:55)
[2021-02-19] MEDS ORDERED: POLYETHYLENE GLYCOL 17 GM/PKT PO SCH (12:55)
--- NOTE | 2021-02-19 12:55 | NUR ---
CONSENT FOR PICC LINE NURSE SIGNED BY PATIENT AND MD. WITNESS MD EDUCATE PATIENT ON PICC LINE INSERTION. PT VERBALIZED UNDERSTANDING AND SIGNED THE FORMS.
[2021-02-19] MEDS ORDERED: MUPI2CRE22 NS (13:01)
[2021-02-19] MEDS ORDERED: MERO1VIA15 IV (13:01)
[2021-02-19] MEDS ORDERED: POLY17PD46 PO (13:10)
[2021-02-19] MEDS ORDERED: DOCU250C39 PO (13:10)
--- NOTE | 2021-02-19 13:28 | NUR ---
PICC LINE NURSE AT BEDSIDE
[2021-02-19] MEDS ORDERED: POTASSIUM PHOSPHATE 15 MM in NACL 0.9% 250 ML IV SCH (13:30)
--- NOTE | 2021-02-19 14:37 | NUR ---
02/19/21 RD FOLLOW UP COMPLETED PLEASE REFER TO NUTRITION ASSESSMENT UNDER CARE ACTIVITY FOR ESTIMATED NUTRITIONAL NEEDS. 1.CONTINUE REGULAR DIET TOLERATED 2.RECOMMEND ENSURE BID FOR ADDITIONAL KCAL AND PROTEIN 3.RD TO FOLLOW-UP 2-3 DAYS, HIGH RISK TINY MEHTA, RD
[2021-02-19 16:00] VITALS: BP 116/58
--- NOTE | 2021-02-19 16:20 | NUR ---
PICC LINE VERIFIED BY CXR AND IS READY TO USE.
[2021-02-19] MEDS: MUPIROCIN CA NASAL 2% 1GM TUBE NS SCH (16:58)
[2021-02-19] MEDS: CHLORHEXADINE GLUC 2% CLOTH TP SCH (16:58)
[2021-02-19 17:37] VITALS: BP 115/85
--- NOTE | 2021-02-19 18:00 | NUR ---
CONTACTED [facility] AND GAVE REPORT TO JAMMIE WILKERSON. PATIENT WILL BE TRANSFERRED TO ROOM [address] NEW. [employer] TIME BETWEEN [id number].
--- NOTE | 2021-02-19 18:20 | NUR ---
ENDORSED DISCHARGE INSTRUCTIONS TO PATIENT. PATIENT VERBALIZED UNDERSTANDING AND SIGNED DISCHARGE FORMS.
--- NOTE | 2021-02-19 18:30 | NUR ---
PATIENT DISCHARGED OFF THE UNIT. BEING TRANSFERRED TO [facility] TO ROOM 118. PT WAS STABLE.
[2021-02-20] MEDS ORDERED: HYDRAGUARD CREAM TP SCH (01:00)
== END 2021-02-19 18:30 | DRG 871 ==
LOC: MED 18:06 → MMU 22:13 → MTU 22:28
PROVIDERS: ADMIT Preventive Medicine Preventive Medicine/Occupational Environmental Medicine; ATTEND Preventive Medicine Preventive Medicine/Occupational Environmental Medicine
PROC: 0T25X0Z Change Drainage Device in Kidney, External Approach (ICD-10-PCS; 2021-02-18)
PROC: BT121ZZ Fluoroscopy of Left Kidney using Low Osmolar Contrast (ICD-10-PCS; 2021-02-18)
PROC: 02HV33Z Insertion of Infusion Device into Superior Vena Cava, Percutaneous Approach (ICD-10-PCS; principal; 2021-02-19)
PROC: B548ZZA Ultrasonography of Superior Vena Cava, Guidance (ICD-10-PCS; 2021-02-19)
DX: A41.9 Sepsis, unspecified organism (principal); E43 Unspecified severe protein-calorie malnutrition; N13.6 Pyonephrosis; Z16.12 Extended spectrum beta lactamase (ESBL) resistance; B96.20 Unspecified Escherichia coli [E. coli] as the cause of diseases classified elsewhere; E87.6 Hypokalemia; E83.52 Hypercalcemia; E83.39 Other disorders of phosphorus metabolism; E88.09 Other disorders of plasma-protein metabolism, not elsewhere classified; G89.4 Chronic pain syndrome; E78.5 Hyperlipidemia, unspecified; D64.9 Anemia, unspecified; D72.819 Decreased white blood cell count, unspecified; G47.00 Insomnia, unspecified; J45.909 Unspecified asthma, uncomplicated; Z20.822 Contact with and (suspected) exposure to COVID-19; I10 Essential (primary) hypertension; G80.9 Cerebral palsy, unspecified; K56.41 Fecal impaction; N28.1 Cyst of kidney, acquired; R73.9 Hyperglycemia, unspecified; L89.90 Pressure ulcer of unspecified site, unspecified stage; K52.89 Other specified noninfective gastroenteritis and colitis; Z87.442 Personal history of urinary calculi; Z79.899 Other long term (current) drug therapy; Z90.49 Acquired absence of other specified parts of digestive tract; Z88.1 Allergy status to other antibiotic agents
CPT/HCPCS: 36415; 50432; 71045; 76001; 76770; 80048; 80053; 81001; 82948; 83735; 84100; 85025; 85610; 85651; 85730; 86140; 87040; 87081; 87086; 94640; 96361; 96365; 97163-GP; 97530; 99285; J0696; J2001; J2020; J2185; J2250; J2270; J3010; J7030; J7060; Q0092; Q0162

== ENCOUNTER 2021-02-20 03:15 | Inpatient (IN) | payer OTHER, MEDICAID ==
[~2021-02-20] VITALS: Ht 167.6 cm; Wt 44.0 kg
[~2021-02-20 03:15] MED LIST changes: +CEFP200T20 PO; +DOCU250C39 PO; +MERO1VIA15 IV; +MUPI2CRE22 NS; +POLY17PD46 PO
--- NOTE | 2021-02-20 03:16 | NUR ---
PT BROUGHT TO BED 10 VIA BRADY MUSA
[2021-02-20 03:25] VITALS: BP 132/80
--- NOTE | 2021-02-20 03:25 | NUR ---
BIBA TO BED 10 FROM [facility] WITH C/O VOMITING STOOL. WAS D/C' FROM HERE YESTERDAY. PT STATES HAD NOT HAD BM FOR 5 DAYS AND HAD LARGE BM JUST PRIOR TO DISCHARGE. IS AWAKE AND ALERT. NEPHROSTOMY TUBE IN PLACE DRAINING HUMA COLORED URINE. PICC LINE IN PLACE TO RIGHT UPPER ARM PMH : CP, HTN ALLERGIES : CIPRO, METRONIDAZOLE
[2021-02-20] MEDS ORDERED: DOPPLER MC ONE (03:56)
[2021-02-20 04:00] LABS: BASOPHILS % (AUTO) 0.4 % (0.0-2.0); EOSINOPHILS # (AUTO) 0.5 K/uL (0-0.4); EOSINOPHILS % (AUTO) 8.6 % (0.0-4.0); HEMATOCRIT 41.7 % (36-52); HEMOGLOBIN 13.6 g/dL (12.0-18.0); LYMPHOCYTES # (AUTO) 0.8 K/uL (2.0-11.5); LYMPHOCYTES % (AUTO) 13.2 % (20.5-51.1); MEAN CORPUSCULAR HEMOGLOBIN 30 pg (27-31); MEAN CORPUSCULAR HGB CONC 33 g/dL (33-37); MEAN CORPUSCULAR VOLUME 91.8 fL (80-94); MONOCYTES # (AUTO) 0.5 K/uL (0.8-1.0); NEUTROPHILS % (AUTO) 68.8 % (42.2-75.2); PLATELET COUNT (AUTO) 225 K/uL (140-450); RED BLOOD CELL COUNT(AUTO) 4.55 MIL/uL (4.20-6.10); RED CELL DISTRIBUTION WIDTH 15.1 % (11.6-13.7); WHITE BLOOD COUNT (AUTO) 5.9 K/uL (4.8-10.8)
[2021-02-20 04:18] LABS: ALBUMIN 2.9 g/dL (3.4-5.0); ANION GAP 11.2 (8-16); CREATININE 0.9 mg/dL (0.6-1.3); POTASSIUM 3.2 mmol/L (3.5-5.1); TOTAL BILIRUBIN 0.2 mg/dL (0.0-1.0)
--- NOTE | 2021-02-20 05:18 | NUR ---
RETURN FROM CT
[2021-02-20] MEDS ORDERED: ONDANSETRON 4 MG/2 ML VIAL ONE (05:53)
[2021-02-20] MEDS ORDERED: ONDANSETRON 4 MG/2 ML VIAL IVP ONE (05:55)
--- NOTE | 2021-02-20 06:00 | NUR ---
AWAKE, IS TEARFUL. VOICES CONCERNS RE NOT FEELING WELL. C/O NAUSEA, MEDICATED ORDERED
--- NOTE | 2021-02-20 07:27 | NUR ---
report received from ANAM Bower for continuation of care
[2021-02-20] MEDS ORDERED: DEXT 5% / NACL 0.45% 1,000 ML IV ONE (07:30)
--- NOTE | 2021-02-20 08:05 | NUR ---
Patient will be admitted to care of DR. CARLSON. Admited to MED-SURG. Will go to room 120B. Belongings list completed. Report to ANAM COSTELLO.
--- NOTE | 2021-02-20 08:10 | NUR ---
RECEIVED REPORT FROM ER NURSE, PT CAME WITH IGOR COMPLAIN OF VOMITING AND ABDOMINAL PAIN. DX IS BOWEL OBSTRUCTION. HX OF CEREBRAL PALSY AND ASTHMA. FULL CODE, ALERT ORIENTED X 4 VERBALLY RESPONSIVE, DENIES PAIN AT THE MOMENT. NPO. PICC LINE ON RIGHT UPPER ARM.DOCTOR ORDER NG TUBE PT REFUSED DOCTOR IS AWARE OF IT. POC DISCUSSED WILL FOLLOW.
[2021-02-20] MEDS ORDERED: BOWEL EVACUANT DRINK 4,000 ML PDS PO ONE (08:35)
--- NOTE | 2021-02-20 09:49 | NUR ---
DR SPENCE SUGGESTED TO PUT NG TUBE ON PT, PT REFUSED TO PUT NG, UNABLE TO ADMINISTER BOWEL PREP PT REFUSED. EDUCATED PT ABOUT RISK VS BENEFIT OF NG TUBE AND BOWEL PREP. PT STATED HE DO NOT WANT ANYTHING TODAY.
--- NOTE | 2021-02-20 10:00 | NUR ---
PT HAS POTASSIUM 3.2 NOTIFY MD AWAITING FOR NEW ORDERS.
--- NOTE | 2021-02-20 10:45 | NUR ---
RECEIVED THE ORDER FOR K RIDER 40 MEQ, WILL ADMINISTER WHEN AVAILABLE ON THE UNIT.
[2021-02-20] MEDS ORDERED: KCL 20 MEQ/WATER INJ PREMIX 200 ML IV SCH (11:00)
[2021-02-20 12:00] VITALS: BP 128/87
[2021-02-20] MEDS ORDERED: MORPHINE SULFATE 2 MG/ML SYR IVP PRN ×2 (14:05→14:35)
[2021-02-20] MEDS: ONDANSETRON 4 MG/2 ML VIAL IVP PRN ×2 (14:20→20:03)
--- NOTE | 2021-02-20 14:20 | NUR ---
PT HAS TWO EPISODES OF COFFEE BROWN EMESIS, NOTIFIED MD RECEIVED ORDER OF ZOFRAN AND ADMINISTERED PER MD ORDER. WILL CONTINUE TO MONITOR PT FOR NAUSEA AND VOMITING.
[2021-02-20] MEDS ORDERED: MORPHINE SULFATE 4 MG/ML SYR IVP PRN (14:35)
[2021-02-20] MEDS ORDERED: LORazepam 2 MG/ML VIAL IVP PRN (14:35)
[2021-02-20] MEDS ORDERED: ALBUTEROL HFA MDI 90 MCG/ACTUATION 8 GM INH PRN (14:35)
[2021-02-20] MEDS: MUPIROCIN CA NASAL 2% 1GM TUBE NS SCH (15:47)
--- NOTE | 2021-02-20 16:04 | NUR ---
HOURLY ROUND DONE, PT DENIES NAUSEA, VOMITING AND ABDOMINAL PAIN.
[2021-02-20 16:27] VITALS: BP 111/57
--- NOTE | 2021-02-20 19:30 | NUR ---
ENDORSED NIGHT NURSE FOR CONTINUITY OF CARE PT IS STABLE.
[2021-02-20 20:00] VITALS: BP 126/83
[2021-02-20] MEDS: PANTOPRAZOLE 40 MG INJ VIAL IVP SCH (22:16)
[2021-02-20] MEDS: MEROPENEM 1,000 MG VIAL IV SCH (22:16)
[2021-02-21 04:00] VITALS: BP 111/68
[2021-02-21] MEDS: MEROPENEM 1,000 MG VIAL IV SCH (05:35)
[2021-02-21 06:29] LABS: ANION GAP 10.5 (8-16); BASOPHILS % (AUTO) 0.8 % (0.0-2.0); CARBON DIOXIDE 29.3 mmol/L (21-32); EOSINOPHILS # (AUTO) 0.1 K/uL (0-0.4); EOSINOPHILS % (AUTO) 0.9 % (0.0-4.0); HEMOGLOBIN 13.3 g/dL (12.0-18.0); LYMPHOCYTES # (AUTO) 0.9 K/uL (2.0-11.5); LYMPHOCYTES % (AUTO) 15.6 % (20.5-51.1); MEAN CORPUSCULAR HEMOGLOBIN 30 pg (27-31); MEAN CORPUSCULAR HGB CONC 33 g/dL (33-37); MONOCYTES # (AUTO) 0.7 K/uL (0.8-1.0); MONOCYTES % (AUTO) 12.5 % (1.7-9.3); NEUTROPHILS # (AUTO) 4.2 K/uL (1.8-7.7); NEUTROPHILS % (AUTO) 70.2 % (42.2-75.2); PLATELET COUNT (AUTO) 266 K/uL (140-450); POTASSIUM 3.8 mmol/L (3.5-5.1); RED BLOOD CELL COUNT(AUTO) 4.41 MIL/uL (4.20-6.10); RED CELL DISTRIBUTION WIDTH 15.7 % (11.6-13.7); WHITE BLOOD COUNT (AUTO) 5.9 K/uL (4.8-10.8)
[2021-02-21 06:39] LABS: MAGNESIUM 2.2 mg/dL (1.8-2.4); PHOSPHORUS 1.9 mg/dL (2.5-4.9)
--- NOTE | 2021-02-21 07:36 | NUR ---
RECEIVED REPORT FROM NIGHT NURSE, PT IS ALERT ORIENTED X 4 VERBALLY RESPONSIVE, CAME FOR NAUSEA VOMITING AND ABDOMINAL PAIN, DOCTOR SUGGESTED TO INSERT NG TUBE PT IS REFUSING IT. HAS NEPHROSTOMY TUBE ON LEFT SIDE AND SUPRA PUBIC CATHETER. PICC LINE ON RIGHT UPPER ARM. IVF D5 1/2 NS @100ML/HR. POC DISCUSSED WILL CONTINUE TO FOLLOW.
[2021-02-21 08:00] VITALS: BP 110/66
[2021-02-21] MEDS: PANTOPRAZOLE 40 MG INJ VIAL IVP SCH ×2 (09:13→22:44)
[2021-02-21 12:00] VITALS: BP 105/52
--- NOTE | 2021-02-21 12:00 | NUR ---
PT IS IN THE BED, DENIES PAIN AND DISCOMFORT, ALL SAFETY MEASURES ARE IN PLACED.
[2021-02-21] MEDS: MEROPENEM 1,000 MG in NACL 0.9% 100 ML IV SCH ×2 (14:35→22:43)
[2021-02-21] MEDS: ONDANSETRON 4 MG/2 ML VIAL IVP PRN ×2 (14:56→22:47)
--- NOTE | 2021-02-21 15:00 | NUR ---
PT WAS COMPLAINING OF NAUSEA, ADMINISTERED ZOFRAN. WILL CONTINUE TO ASSESS PT FOR NAUSEA AND VOMITING.
[2021-02-21 16:00] VITALS: BP 113/78
[2021-02-21] MEDS: MUPIROCIN CA NASAL 2% 1GM TUBE NS SCH (16:17)
[2021-02-21] MEDS ORDERED: POTASSIUM PHOSPHATE 15 MM in NACL 0.9% 250 ML IV SCH (16:30)
--- NOTE | 2021-02-21 19:14 | NUR ---
ENDORSED THE NIGHT NURSECALI FOR CONTINUITY OF CARE, PT IS STABLE.
[2021-02-21 20:00] VITALS: BP 109/74
[2021-02-21] MEDS: MORPHINE SULFATE 2 MG/ML SYR IVP PRN (22:48)
[2021-02-22] VITALS: BP 109/74
[2021-02-22 04:00] VITALS: BP 104/63
[2021-02-22 06:06] LABS: BASOPHILS # (AUTO) 0.1 K/uL (0.00-0.22); BASOPHILS % (AUTO) 0.8 % (0.0-2.0); EOSINOPHILS # (AUTO) 0.4 K/uL (0-0.4); EOSINOPHILS % (AUTO) 5.3 % (0.0-4.0); HEMATOCRIT 39.6 % (36-52); HEMOGLOBIN 12.8 g/dL (12.0-18.0); LYMPHOCYTES # (AUTO) 0.6 K/uL (2.0-11.5); LYMPHOCYTES % (AUTO) 8.7 % (20.5-51.1); MEAN CORPUSCULAR HEMOGLOBIN 30 pg (27-31); MEAN CORPUSCULAR HGB CONC 32 g/dL (33-37); MEAN CORPUSCULAR VOLUME 93.9 fL (80-94); MONOCYTES # (AUTO) 0.8 K/uL (0.8-1.0); MONOCYTES % (AUTO) 10.5 % (1.7-9.3); NEUTROPHILS # (AUTO) 5.4 K/uL (1.8-7.7); NEUTROPHILS % (AUTO) 74.7 % (42.2-75.2); PLATELET COUNT (AUTO) 240 K/uL (140-450); RED BLOOD CELL COUNT(AUTO) 4.22 MIL/uL (4.20-6.10); RED CELL DISTRIBUTION WIDTH 15.6 % (11.6-13.7); WHITE BLOOD COUNT (AUTO) 7.3 K/uL (4.8-10.8)
[2021-02-22 06:29] LABS: ALBUMIN 2.7 g/dL (3.4-5.0); ANION GAP 15.5 (8-16); CARBON DIOXIDE 24.3 mmol/L (21-32); MAGNESIUM 2.2 mg/dL (1.8-2.4); POTASSIUM 3.8 mmol/L (3.5-5.1); TOTAL BILIRUBIN 0.2 mg/dL (0.0-1.0)
[2021-02-22] MEDS: MEROPENEM 1,000 MG in NACL 0.9% 100 ML IV SCH ×3 (06:31→21:19)
[2021-02-22 08:00] VITALS: BP 117/71
--- NOTE | 2021-02-22 09:38 | NUR ---
PATIENT HAS BEEN SCREENED AND CATEGORIZED HIGH NUTRITION RISK. PATIENT WILL BE SEEN WITHIN 1-2 DAYS OF ADMISSION. 02/22/[address]
[2021-02-22] MEDS: PANTOPRAZOLE 40 MG INJ VIAL IVP SCH ×2 (09:42→21:20)
[2021-02-22] MEDS: MORPHINE SULFATE 2 MG/ML SYR IVP PRN (10:08)
[2021-02-22] MEDS ORDERED: MIDAZOLAM 5 MG/5 ML VIAL ONE (13:16)
[2021-02-22] MEDS ORDERED: fentaNYL citrate 0.05 MG/ML VIAL ONE (13:17)
[2021-02-22 16:00] VITALS: BP 104/70
[2021-02-22] MEDS: MUPIROCIN CA NASAL 2% 1GM TUBE NS SCH (16:00)
--- NOTE | 2021-02-22 16:39 | NUR ---
02/22/21 RD INITIAL ASSESSMENT COMPLETED PLEASE REFER TO NUTRITION ASSESSMENT UNDER CARE ACTIVITY FOR ESTIMATED NUTRITIONAL NEEDS. 1. CONTINUE CLEAR LIQUID DIET TOLERATED 2. RECOMMEND ENSURE CLEAR TID 3. IF/WHEN MEDICALLY STABLE CONSIDER ADVANCING TO REGULAR DIET 4. RD TO FOLLOW-UP 2-3 DAYS, HIGH RISK TINY MEHTA, FEDE
[2021-02-22] MEDS: SENNA 8.6 MG TAB PO SCH (17:00)
[2021-02-22] MEDS: LACTULOSE 20 GM/30 ML UDC PO SCH ×2 (17:00→21:20)
[2021-02-22] MEDS: ERYTHROMYCIN 100 MG in NACL 0.9% 100 ML IV SCH ×3 (18:00→23:16)
--- NOTE | 2021-02-22 19:09 | NUR ---
ERYTHROMYCIN UNAVAILABLE. WILL ENDORSE TO NOC SHIFT.
[2021-02-22 20:00] VITALS: BP 129/80
--- NOTE | 2021-02-22 20:00 | NUR ---
PATIENT WAS RECEIVED IN BED ALERT AND COHERENT, NO RESPIRATORY DISTRESS, DENIES ANY PAIN.
[2021-02-22] MEDS: POLYETHYLENE GLYCOL 17 GM/PKT PO SCH (21:20)
--- NOTE | 2021-02-22 22:00 | NUR ---
ALL MEDS VIA IV WERE ADMINISTERED, TOLERATED WELL BY THE PATIENT
--- NOTE | 2021-02-23 | NUR ---
PATIENT WAS CALMLY ASLEEP.
--- NOTE | 2021-02-23 02:00 | NUR ---
PATIENT WAS RECEIVED IN BED ALERT AND COHERENT, NO RESPIRATORY DISTRESS, DENIES ANY PAIN.
--- NOTE | 2021-02-23 03:20 | NUR ---
PATIENT WAS RECEIVED IN BED ALERT AND COHERENT, NO RESPIRATORY DISTRESS, DENIES ANY PAIN.
[2021-02-23] MEDS: MEROPENEM 1,000 MG in NACL 0.9% 100 ML IV SCH ×3 (05:00→21:18)
[2021-02-23] MEDS: ERYTHROMYCIN 100 MG in NACL 0.9% 100 ML IV SCH ×3 (06:00→18:44)
[2021-02-23 06:44] LABS: ANION GAP 11.5 (8-16); CARBON DIOXIDE 27.8 mmol/L (21-32); POTASSIUM 3.3 mmol/L (3.5-5.1)
[2021-02-23 06:59] LABS: BASOPHILS # (AUTO) 0.1 K/uL (0.00-0.22); BASOPHILS % (AUTO) 1.1 % (0.0-2.0); EOSINOPHILS # (AUTO) 0.4 K/uL (0-0.4); HEMATOCRIT 36.1 % (36-52); HEMOGLOBIN 11.7 g/dL (12.0-18.0); LYMPHOCYTES # (AUTO) 0.8 K/uL (2.0-11.5); LYMPHOCYTES % (AUTO) 15.9 % (20.5-51.1); MEAN CORPUSCULAR HEMOGLOBIN 30 pg (27-31); MEAN CORPUSCULAR HGB CONC 32 g/dL (33-37); MEAN CORPUSCULAR VOLUME 93.4 fL (80-94); MONOCYTES # (AUTO) 0.7 K/uL (0.8-1.0); NEUTROPHILS # (AUTO) 3.1 K/uL (1.8-7.7); PLATELET COUNT (AUTO) 199 K/uL (140-450); RED BLOOD CELL COUNT(AUTO) 3.86 MIL/uL (4.20-6.10); RED CELL DISTRIBUTION WIDTH 15.8 % (11.6-13.7)
--- NOTE | 2021-02-23 07:37 | NUR ---
ALL REPORTS WERE GIVEN, TRANSFER OF CARE ENDORSED
--- NOTE | 2021-02-23 07:40 | NUR ---
RECEIVED REPORT FROM BEHAVIORAL SCIENCES DEPARTMENT CHAIR RN FOR CONTINUITY OF CARE. PATIENT IS RESTING IN BED. NO S/S OF DISTRESS. ALL SAFETY PRECAUTIONS IN PLACE.
[2021-02-23 08:00] VITALS: BP 115/76
[2021-02-23] MEDS: POLYETHYLENE GLYCOL 17 GM/PKT PO SCH (08:41)
[2021-02-23] MEDS: LACTULOSE 20 GM/30 ML UDC PO SCH ×4 (08:42→21:18)
[2021-02-23] MEDS: SENNA 8.6 MG TAB PO SCH ×3 (08:42→17:15)
[2021-02-23] MEDS: ONDANSETRON 4 MG/2 ML VIAL IVP PRN (08:42)
[2021-02-23] MEDS: PANTOPRAZOLE 40 MG INJ VIAL IVP SCH ×2 (08:43→21:18)
--- NOTE | 2021-02-23 08:45 | NUR ---
ADMINISTERED SCHEDULED MEDICATIONS. PATIENT VERBALIZED UNDERSTANDING. ALL SAFETY PRECAUTIONS IN PLACE.
[2021-02-23] MEDS: MORPHINE SULFATE 2 MG/ML SYR IVP PRN (08:49)
[2021-02-23] MEDS ORDERED: MAGNESIUM CITRATE 300 ML BTL PO SCH ×2 (09:00→21:00)
--- NOTE | 2021-02-23 11:45 | NUR ---
SPOKE WITH DR CARLSON. NOTIFIED HIM OF PATIENT'S POTASSIUM RESULT OF 3.3 AND THAT PATIENT'S SUPRA PUBIC CATHETER IS LEAKING FROM THE SITE. RECEIVED ORDERS FOR K DUR 40MEQ PO AND ORDER FOR UROLOGY CONSULT WITH DR RAMIREZ.
[2021-02-23] MEDS ORDERED: POTASSIUM CHLORIDE 10 MEQ TABER PO SCH (12:28)
--- NOTE | 2021-02-23 13:04 | NUR ---
PATIENT VOMITED 20ML. NOTIFIED DR CARLSON. PER DR ORDER, HELD SCHEDULED PO MEDICATIONS.
--- NOTE | 2021-02-23 15:00 | NUR ---
CHANGED PATIENT AND PATIENT'S LINENS. LIQUID, DARK BROWN, MODERATE BM NOTED. PATIENT TOLERATED ACTIVITY. ALL SAFETY PRECAUTIONS IN PLACE.
[2021-02-23] MEDS ORDERED: POLYETHYLENE GLYCOL 17 GM/PKT PO SCH (15:30)
[2021-02-23] MEDS ORDERED: POTASSIUM CHLORIDE 20% 40 MEQ/15 ML UDC GT SCH (15:42)
[2021-02-23] MEDS: MUPIROCIN CA NASAL 2% 1GM TUBE NS SCH (17:15)
[2021-02-23] MEDS: POTASSIUM CHL 40 MEQ/ D5-1/2NS 1,000 ML IV SCH (17:17)
--- NOTE | 2021-02-23 17:30 | NUR ---
PATIENT RESTING IN BED. NO S/S OF DISTRESS. ALL SAFETY PRECAUTIONS IN PLACE.
[2021-02-23] MEDS: MAGNESIUM CITRATE 300 ML BTL PO SCH (17:40)
--- NOTE | 2021-02-23 19:30 | NUR ---
ENDORSED PATIENT TO BROODMARE BARN GROOM RN FOR CONTINUITY OF CARE. PATIENT STABLE.
[2021-02-23 20:00] VITALS: BP 129/78
[2021-02-24] MEDS: ERYTHROMYCIN 100 MG in NACL 0.9% 100 ML IV SCH ×5 (00:12→23:39)
[2021-02-24] MEDS: MEROPENEM 1,000 MG in NACL 0.9% 100 ML IV SCH ×3 (04:54→21:00)
[2021-02-24 06:04] LABS: BASOPHILS % (AUTO) 1.2 % (0.0-2.0); EOSINOPHILS # (AUTO) 0.3 K/uL (0-0.4); EOSINOPHILS % (AUTO) 8.1 % (0.0-4.0); HEMATOCRIT 37.9 % (36-52); HEMOGLOBIN 12.3 g/dL (12.0-18.0); LYMPHOCYTES # (AUTO) 0.7 K/uL (2.0-11.5); LYMPHOCYTES % (AUTO) 18.8 % (20.5-51.1); MEAN CORPUSCULAR HEMOGLOBIN 30 pg (27-31); MEAN CORPUSCULAR HGB CONC 32 g/dL (33-37); MEAN CORPUSCULAR VOLUME 93.1 fL (80-94); MONOCYTES # (AUTO) 0.5 K/uL (0.8-1.0); MONOCYTES % (AUTO) 12.6 % (1.7-9.3); NEUTROPHILS # (AUTO) 2.2 K/uL (1.8-7.7); NEUTROPHILS % (AUTO) 59.3 % (42.2-75.2); PLATELET COUNT (AUTO) 211 K/uL (140-450); RED BLOOD CELL COUNT(AUTO) 4.07 MIL/uL (4.20-6.10); RED CELL DISTRIBUTION WIDTH 15.7 % (11.6-13.7); WHITE BLOOD COUNT (AUTO) 3.7 K/uL (4.8-10.8)
[2021-02-24 06:41] LABS: ALBUMIN 2.6 g/dL (3.4-5.0); ANION GAP 12.3 (8-16); CARBON DIOXIDE 26.3 mmol/L (21-32); CREATININE 0.9 mg/dL (0.6-1.3); MAGNESIUM 2.2 mg/dL (1.8-2.4); PHOSPHORUS 2.3 mg/dL (2.5-4.9); POTASSIUM 3.6 mmol/L (3.5-5.1); TOTAL BILIRUBIN 0.1 mg/dL (0.0-1.0)
--- NOTE | 2021-02-24 07:30 | NUR ---
RECEIVED REPORT FROM COUNTY ORDINARY RN FOR CONTINUITY OF CARE. PATIENT IS RESTING IN BED. NO S/S OF DISTRESS. RESPIRATIONS ARE EVEN AND UNLABORED ON ROOM AIR. ALL SAFETY PRECAUTIONS IN PLACE.
[2021-02-24] MEDS: SENNA 8.6 MG TAB PO SCH ×3 (08:50→17:34)
[2021-02-24] MEDS: LACTULOSE 20 GM/30 ML UDC PO SCH ×4 (08:51→21:00)
[2021-02-24] MEDS: POLYETHYLENE GLYCOL 17 GM/PKT PO SCH ×3 (08:53→17:33)
--- NOTE | 2021-02-24 08:55 | NUR ---
ADMINISTERED SCHEDULED MEDICATIONS. PATIENT VERBALIZED UNDERSTANDING. CLEANED PATIENT, 1 BM NOTED. BM WAS SMALL, DARK IN COLOR AND PASTY. ALSO CHANGED LINENS. PATIENT TOLERATED ACTIVITY. ALL SAFETY PRECAUTIONS IN PLACE.
[2021-02-24] MEDS: PANTOPRAZOLE 40 MG INJ VIAL IVP SCH ×2 (09:00→21:00)
[2021-02-24] MEDS: POTASSIUM CHL 40 MEQ/ D5-1/2NS 1,000 ML IV SCH (09:01)
[2021-02-24] MEDS: POTASSIUM CHLORIDE 20% 40 MEQ/15 ML UDC PO SCH (09:02)
[2021-02-24] MEDS: MORPHINE SULFATE 2 MG/ML SYR IVP PRN ×2 (12:40→23:39)
--- NOTE | 2021-02-24 13:50 | NUR ---
ADMINISTERED CLEANING ENEMA. PATIENT TOLERATED ACTIVITY. BM WAS GREEN/LIGHT YELLOW IN COLOR AND LIQUID IN CONSISTENCY. PATIENT CLEANED AND LINENS CHANGED.
--- NOTE | 2021-02-24 14:22 | NUR ---
02/24/21 RD FOLLOW UP COMPLETED PLEASE REFER TO NUTRITION ASSESSMENT UNDER CARE ACTIVITY FOR ESTIMATED NUTRITIONAL NEEDS. 1. CONTINUE CLEAR LIQUID DIET TOLERATED 2. RECOMMEND ENSURE CLEAR TID 3. IF/WHEN MEDICALLY STABLE CONSIDER ADVANCING TO HIGH FIBER DIET 4. RD TO FOLLOW-UP 2-3 DAYS, HIGH RISK TINY MEHTA, FEDE
[2021-02-24] MEDS: ONDANSETRON 4 MG/2 ML VIAL IVP PRN (14:39)
--- NOTE | 2021-02-24 14:41 | NUR ---
PATIENT COMPLAINED OF NAUSEA. ADMINISTERED PRN ZOFRAN PER MD ORDER. PATIENT VERBALIZED UNDERSTANDING.
--- NOTE | 2021-02-24 15:51 | NUR ---
DC PLANNING: SPOKE WITH PATIENT STATED HE DOESN'T WANT TO GO TO SNF, PREFERRED TO GO BACK TO [facility]. PER DR RAMIREZ NOTES PLAN TO PERFORM EGD AND COLONOSCOPY TOMORROW. CM TO FOLLOW Addendum: 02/26/21 at 1206 by Ying Cantu RN DC PLANNING: PATIENT HAS A DC ORDER TO GO BACK TO [facility], CALL THE [facility] [phone] SPOKE WITH GARCÍA NOODLE PRESS OPERATOR OF THE PATIENT STATED WILL COME TO PICK HIM UP BETWEEN 3-4 PM. NOTIFIED ANAM JACOME. CM TO FOLLOW
[2021-02-24] MEDS: MUPIROCIN CA NASAL 2% 1GM TUBE NS SCH (16:40)
[2021-02-24] MEDS: MAGNESIUM CITRATE 300 ML BTL PO SCH (16:41)
--- NOTE | 2021-02-24 17:35 | NUR ---
ADMINISTERED SCHEDULED MEDICATIONS. PATIENT VERBALIZED UNDERSTANDING. BM NOTED. BM WAS LIQUID IN CONSISTENCY, LIGHT GREEN/CLEAR IN COLOR. PATIENT WAS CLEANED AND CHANGED. ALL SAFETY PRECAUTIONS IN PLACE.
--- NOTE | 2021-02-24 19:30 | NUR ---
ENDORSED PATIENT TO LUMBER MATERIAL HANDLER RN FOR CONTINUITY OF CARE. PATIENT IS STABLE.
[2021-02-24] MEDS: SUPREP BOWEL PREP KIT 354 ML SOLN.RECON PO SCH (23:30)
[2021-02-25 00:58] VITALS: BP 131/79
[2021-02-25] MEDS: POTASSIUM CHL 40 MEQ/ D5-1/2NS 1,000 ML IV SCH (01:00)
[2021-02-25] MEDS: MEROPENEM 1,000 MG in NACL 0.9% 100 ML IV SCH ×3 (05:12→23:02)
[2021-02-25] MEDS: ERYTHROMYCIN 100 MG in NACL 0.9% 100 ML IV SCH ×2 (06:01→12:24)
--- NOTE | 2021-02-25 07:52 | NUR ---
Received pt report/handoff by freelance graphic designer RN. Pt is in bed in no acute distress. Safety and comfort maintained.
[2021-02-25 08:00] VITALS: BP 118/76
[2021-02-25] MEDS: SUPREP BOWEL PREP KIT 354 ML SOLN.RECON PO SCH (09:00)
[2021-02-25] MEDS: POTASSIUM CHLORIDE 20% 40 MEQ/15 ML UDC PO SCH (09:00)
[2021-02-25] MEDS: LACTULOSE 20 GM/30 ML UDC PO SCH ×2 (09:00→12:40)
[2021-02-25] MEDS: PANTOPRAZOLE 40 MG INJ VIAL IVP SCH (12:21)
[2021-02-25] MEDS ORDERED: MIDAZOLAM 5 MG/5 ML VIAL ONE (12:29)
[2021-02-25] MEDS ORDERED: fentaNYL citrate 0.05 MG/ML VIAL ONE (12:29)
[2021-02-25] MEDS: POLYETHYLENE GLYCOL 17 GM/PKT PO SCH (12:40)
[2021-02-25 14:25] VITALS: BP 120/76
[2021-02-25] MEDS ORDERED: fentaNYL citrate 0.05 MG/ML VIAL IVP ONE (14:30)
[2021-02-25] MEDS ORDERED: MIDAZOLAM 2 MG/2 ML VIAL IVP ONE (14:30)
--- NOTE | 2021-02-25 15:59 | NUR ---
12:44PM:Pt was safely transferred to EGD and colonoscopy accompanied by escort service. 2:12pm-Pt returned back to unit safely,VSS.
[2021-02-25 16:00] VITALS: BP 99/68
--- NOTE | 2021-02-25 19:25 | NUR ---
Bedside report given to plant operator/shift supervisor RN.Pt is stable in no acute distress. Safety and comfort maintained.
[2021-02-25] MEDS ORDERED: SENNA 8.6 MG TAB PO SCH (21:00)
[2021-02-25] MEDS: PANTOPRAZOLE 40 MG TABEC PO SCH (23:03)
[2021-02-26] MEDS: MEROPENEM 1,000 MG in NACL 0.9% 100 ML IV SCH ×2 (05:51→13:17)
[2021-02-26 05:56] LABS: BASOPHILS % (AUTO) 0.4 % (0.0-2.0); EOSINOPHILS # (AUTO) 0.8 K/uL (0-0.4); EOSINOPHILS % (AUTO) 15.4 % (0.0-4.0); HEMATOCRIT 37.7 % (36-52); HEMOGLOBIN 12.4 g/dL (12.0-18.0); LYMPHOCYTES # (AUTO) 1.2 K/uL (2.0-11.5); LYMPHOCYTES % (AUTO) 24.1 % (20.5-51.1); MEAN CORPUSCULAR HEMOGLOBIN 31 pg (27-31); MEAN CORPUSCULAR HGB CONC 33 g/dL (33-37); MEAN CORPUSCULAR VOLUME 92.6 fL (80-94); MONOCYTES # (AUTO) 0.4 K/uL (0.8-1.0); MONOCYTES % (AUTO) 8.4 % (1.7-9.3); NEUTROPHILS # (AUTO) 2.6 K/uL (1.8-7.7); NEUTROPHILS % (AUTO) 51.7 % (42.2-75.2); PLATELET COUNT (AUTO) 216 K/uL (140-450); RED BLOOD CELL COUNT(AUTO) 4.07 MIL/uL (4.20-6.10); RED CELL DISTRIBUTION WIDTH 15.7 % (11.6-13.7)
[2021-02-26 06:00] LABS: ALBUMIN 2.5 g/dL (3.4-5.0); ANION GAP 9.5 (8-16); CREATININE 0.9 mg/dL (0.6-1.3); POTASSIUM 4.5 mmol/L (3.5-5.1); TOTAL BILIRUBIN 0.2 mg/dL (0.0-1.0)
--- NOTE | 2021-02-26 07:25 | NUR ---
PT HAS BEEN ENDORSED BY PAPIER MACHE' MOLDER NURSE FOR CONTINUITY OF CARE, POC DISCUSSED. PT IS RESTING IN BED WITH NO S/S OF ACUTE DISTRESS. PT ON ROOM AIR WITH CHEST RISING AND FALLING EVEN AND UNLABORED. PT SKIN INTACT, WITH A LEFT NEPHROSTOMY TUBE, SUPRAPUBIC CATH, AND A RIGHT UPPER ARM PICC LINE RUNNING TKO. PT IS ON MED SURG. PT S/P FROM EGD ON THE , RECOMMENDATIONS FROM MD OF BOWEL REGIMEN FOR CHRONIC CONSTIPATION. ALL SAFETY MEASURES IN PLACE, CALL LIGHT WITHIN REACH. WILL CONTINUE TO MONITOR.
[2021-02-26] MEDS: ERYTHROMYCIN ETHYLSUCCINATE SUSP 200 MG/5 ML UDC PO SCH ×2 (08:25→11:26)
[2021-02-26] MEDS: LACTULOSE 20 GM/30 ML UDC PO SCH ×2 (08:27→08:43)
[2021-02-26] MEDS: POTASSIUM CHLORIDE 20% 40 MEQ/15 ML UDC PO SCH (08:27)
[2021-02-26] MEDS: PANTOPRAZOLE 40 MG TABEC PO SCH (08:28)
--- NOTE | 2021-02-26 08:28 | NUR ---
SCHEDULED MEDICATION ADMINISTERED. PATIENT TOLERATED WELL. PATIENT EDUCATED ON MEDICATIONS ADMINISTERED. PATIENT NODDED. PATIENT ON ROOM AIR, WITH RESPIRATIONS EVEN AND UNLABORED. PATIENT HAS SUPRAPUBIC PERRY, IS PATENT, INTACT AND DRAINING YELLOW FLUID. PATIENT HAS NEPHROSTOMY TUBE, IS PATENT AND INTACT; DRAINING YELLOW FLUID. SKIN IS WARM, DRY, AND INTACT. PATIENT ABDOMEN IS NON-DISTENDED, NON-TENDER WITH BOWL SOUNDS PRESENT. PATIENT CONSUMED 50% OF BREAKFAST. PATIENT HAS PICC LINE TO EVERT, IS PATENT AND INTACT. INFUSING TKO. CALL LIGHT WITHIN REACH. ALL SAFETY PRECAUTIONS IN PLACE. BED IN LOWEST POSITION. WILL CONTINUE TO MONITOR.
[2021-02-26] MEDS: POLYETHYLENE GLYCOL 17 GM/PKT PO SCH ×2 (08:30→08:43)
--- NOTE | 2021-02-26 08:44 | NUR ---
PATIENT REFUSED MED LACTULOSE AND MIRALAX. STATES "I'VE DONE THIS BEFORE AND IT DOESN'T WORK. I'LL BE BACK IN 10 DAYS". DID NOT ADMINISTER MED LACTULOSE AND MIRALAX.
--- NOTE | 2021-02-26 09:13 | NUR ---
PT. WITH LOW BRIGITTE SCALE AT RISK, CONTINUE TO FOLLOW PRESSURE INJURY PREVENTION INTERVENTIONS. -TURN AND REPOSITION PATIENT Q 2H -ASSESS AND MONITOR SKIN CONDITION DURING POSITION CHANGE -OFFLOAD BILATERAL HEELS BY PLACING PILLOWS UNDER CALVES AT ALL TIMES, UNLESS OTHERWISE CONTRAINDICATED -PRESSURE REDISTRIBUTION SURFACE AND OFFLOADING SACRALCOCCYX -KEEP SKIN CLEAN AND DRY AT ALL TIMES.
[2021-02-26] MEDS ORDERED: POLY17PD46 PO (09:28)
[2021-02-26] MEDS ORDERED: SENN-74 PO (09:28)
[2021-02-26] MEDS ORDERED: ERYT200P5 PO (09:28)
[2021-02-26] MEDS ORDERED: LACT10SO11 PO (09:28)
[2021-02-26] MEDS ORDERED: PANT40EC56 PO (09:28)
--- NOTE | 2021-02-26 11:21 | NUR ---
PT REPORTING AGITATION AND REQUESTING PRN. ALL SAFETY MEASURES IN PLACE, WILL CONTINUE TO MONITOR.
--- NOTE | 2021-02-26 11:30 | NUR ---
SCHEDULED MEDICATIONS ADMINISTERED PER DR ORDER. PATIENT TOLERATED WELL. EDUCATED PATIENT ABOUT MEDICATIONS ADMINISTERED. WILL CONTINUE TO MONITOR.
[2021-02-26 12:33] VITALS: BP 99/68
--- NOTE | 2021-02-26 13:18 | NUR ---
LLOYD MEDICATION ADMINISTERED PER MD ORDER, PT ASLEEP. WILL CHANGE AND CLEAN PATIENT WHEN PATIENT AWAKENS. PT RADIAL PULSE STRONG AND EVEN. PT RESPIRATIONS EVEN AND UNLABORED.
--- NOTE | 2021-02-26 13:30 | NUR ---
02/26/21 RD FOLLOW UP COMPLETED PLEASE REFER TO NUTRITION ASSESSMENT UNDER CARE ACTIVITY FOR ESTIMATED NUTRITIONAL NEEDS. 1. CONTINUE REGULAR DIET TOLERATED 2. FOLLOW UP IN 5-7 DAYS, LOW RISK TINY MEHTA RD
[2021-02-26 13:35] VITALS: BP 108/80
--- NOTE | 2021-02-26 16:04 | NUR ---
PATIENT WAS CLEANED AND CHANGED AT ROUGHLY 1506, PT STABLE WITH NO COMPLAINTS OF PAIN. PT IV INTACT AND PATENT. ALL NEEDS MET. AT ROUGHLY 1547 CAREGIVER FROM [facility] ARRIVED TO PICK PATIENT UP FOR DISCHARGE. CAREGIVER NAME IS AMIE LABOY [phone], DISCHARGE EDUCATION REGARDING MEDICATION, FOLLOW UP WITH PCP, PLAN OF CARE WAS GIVEN TO PATIENT AND CAREGIVER. CAREGIVER SIGNED DISCHARGE EDUCATION DUE TO PATIENTS INABILITY TO. PICC WAS REMOVED, PRESSURE WAS HELD FOR 5 MINUTES. IV CATH INTACT. PT STARTED REPORTING CHEST PAIN, VITALS WERE OBTAINED AND WERE 126/84, 85, 18, SATING AT 97% ROOM AIR. WHEN ASKED TO DESCRIBE CHEST PAIN, PT REFUSED TO ANSWER. CAREGIVER REPORTED NOT FEELING COMFORTABLE TAKING PATIENT BACK HOME TO SNF. CALLED DR CARLSON, DR CARLSON ORDERED A STAT EKG; IF NORMAL WILL BE DISCHARGED.
--- NOTE | 2021-02-26 16:35 | NUR ---
EKG SHOWS SINUS RHYTHM, PER DR. CARLSON, PT IS STILL STABLE FOR DISCHARGE. AMIE LABOY AT BEDSIDE, REPORTED PTS SINUS RHYTHM. AMIE REQUESTING TO BORROW A WHEELCHAIR FROM THE FACILITY FOR TRANSPORTATION TO [facility]. ASKED DIRECTOR, GABINO IF THAT WAS POSSIBLE. GABINO STATED IF CAREGIVER LEAVES IDENTIFICATION CARD AND WHEN THE WHEELCHAIR IS RETURNED THE ID WILL BE GIVEN BACK. CAREGIVER VERBALIZED UNDERSTANDING. PT ID BAND REMOVED, ALL BELONGINGS WITH CAREGIVER. PT TRANSFERRED TO WHEELCHAIR AND IN STABLE CONDITION. PT WHEELCHAIRED OUT WITH TINY AGUDELO AT 1633. TINY AGUDELO STATED GARCÍA DIRECTOR FROM [facility] WAS OUTSIDE WAITING IN PERSONNEL VEHICLE. NO BORROW OF THE WHEELCHAIR NEEDED. PT HAS NO SOB, FLACC 0, VITAL SIGNS STABLE.
== END 2021-02-26 16:33 | disposition home or self-care (01) | DRG 380 ==
LOC: MED 03:15 → MTU 07:31
PROVIDERS: ADMIT Preventive Medicine Preventive Medicine/Occupational Environmental Medicine; ATTEND Preventive Medicine Preventive Medicine/Occupational Environmental Medicine
PROC: 0DB48ZX Excision of Esophagogastric Junction, Via Natural or Artificial Opening Endoscopic, Diagnostic (ICD-10-PCS; principal; 2021-02-25 12:30)
PROC: 0DJD8ZZ Inspection of Lower Intestinal Tract, Via Natural or Artificial Opening Endoscopic (ICD-10-PCS; 2021-02-25 12:30)
DX: K22.11 Ulcer of esophagus with bleeding (principal); E43 Unspecified severe protein-calorie malnutrition; K31.1 Adult hypertrophic pyloric stenosis; E87.0 Hyperosmolality and hypernatremia; N13.4 Hydroureter; Z68.1 Body mass index [BMI] 19.9 or less, adult; K44.9 Diaphragmatic hernia without obstruction or gangrene; I25.10 Atherosclerotic heart disease of native coronary artery without angina pectoris; K56.41 Fecal impaction; G80.9 Cerebral palsy, unspecified; J45.909 Unspecified asthma, uncomplicated; G47.00 Insomnia, unspecified; E78.5 Hyperlipidemia, unspecified; E87.6 Hypokalemia; G89.4 Chronic pain syndrome; E83.52 Hypercalcemia; E88.09 Other disorders of plasma-protein metabolism, not elsewhere classified; K46.9 Unspecified abdominal hernia without obstruction or gangrene; E83.39 Other disorders of phosphorus metabolism; K25.7 Chronic gastric ulcer without hemorrhage or perforation; K57.90 Diverticulosis of intestine, part unspecified, without perforation or abscess without bleeding; F79 Unspecified intellectual disabilities; K63.89 Other specified diseases of intestine; L81.4 Other melanin hyperpigmentation; M41.9 Scoliosis, unspecified; R62.7 Adult failure to thrive; Z88.1 Allergy status to other antibiotic agents; Z88.8 Allergy status to other drugs, medicaments and biological substances; Z79.899 Other long term (current) drug therapy; Z90.49 Acquired absence of other specified parts of digestive tract; Z74.01 Bed confinement status; Z93.6 Other artificial openings of urinary tract status
CPT/HCPCS: 36415; 74018; 80048; 80053; 83690; 83735; 84100; 85025; 85610; 85651; 85730; 86140; 86886; 86900; 86901; 87081; 88305; 88313; 93005; 96374; 99285; C9113; J1364; J2060; J2185; J2250; J2270; J2405; J3010; J3480; J7030; Q0092

== ENCOUNTER 2021-05-17 10:06 | Inpatient (IN) | payer OTHER, MEDICAID, SELFPAY ==
[~2021-05-17] VITALS: Ht 154.9 cm; Wt 45.4 kg
[~2021-05-17 10:06] MED LIST changes: -CEFP200T20 PO; +ERYT200P5 PO; +LACT10SO11 PO; -MERO1VIA15 IV; +PANT40EC56 PO; +SENN-74 PO
[2021-05-17 10:16] VITALS: BP 115/72
[2021-05-17] MEDS ORDERED: NACL 0.9% 1,000 ML IV SCH (10:25)
[2021-05-17 11:01] LABS: BASOPHILS % (AUTO) 0.4 % (0.0-2.0); EOSINOPHILS # (AUTO) 0.2 K/uL (0-0.4); EOSINOPHILS % (AUTO) 2.9 % (0.0-4.0); HEMATOCRIT 36.9 % (36-52); HEMOGLOBIN 12.1 g/dL (12.0-18.0); LYMPHOCYTES # (AUTO) 0.7 K/uL (2.0-11.5); LYMPHOCYTES % (AUTO) 9.3 % (20.5-51.1); MEAN CORPUSCULAR HEMOGLOBIN 30 pg (27-31); MEAN CORPUSCULAR HGB CONC 33 g/dL (33-37); MEAN CORPUSCULAR VOLUME 91.3 fL (80-94); MONOCYTES # (AUTO) 0.5 K/uL (0.8-1.0); NEUTROPHILS % (AUTO) 80.4 % (42.2-75.2); PLATELET COUNT (AUTO) 258 K/uL (140-450); RED BLOOD CELL COUNT(AUTO) 4.04 MIL/uL (4.20-6.10); RED CELL DISTRIBUTION WIDTH 17.8 % (11.6-13.7); WHITE BLOOD COUNT (AUTO) 7.4 K/uL (4.8-10.8)
[2021-05-17 11:19] LABS: ALBUMIN 2.9 g/dL (3.4-5.0); ANION GAP 12.9 (8-16); CREATININE 1.3 mg/dL (0.6-1.3); POTASSIUM 3.9 mmol/L (3.5-5.1); TOTAL BILIRUBIN 0.2 mg/dL (0.0-1.0)
[2021-05-17 11:21] LABS: APPEARANCE,URINE HAZY (CLEAR); BILIRUBIN,URINE 1+ (NEGATIVE); BLOOD, URINE 3+ (NEGATIVE); COLOR,URINE RED (YELLOW); LEUKOCYTE ESTERASE ,URINE 2+ (NEGATIVE); NITRITE, URINE POSITIVE (NEGATIVE); PH,URINE 6.5 (5.0-9.0); UGLUCOSE NEGATIVE (NEGATIVE)
[2021-05-17 11:22] LABS: APPEARANCE,URINE HAZY (CLEAR); BILIRUBIN,URINE NEGATIVE (NEGATIVE); BLOOD, URINE 3+ (NEGATIVE); COLOR,URINE ORANGE (YELLOW); LEUKOCYTE ESTERASE ,URINE 3+ (NEGATIVE); NITRITE, URINE NEGATIVE (NEGATIVE); UGLUCOSE NEGATIVE (NEGATIVE)
[2021-05-17 11:23] LABS: APPEARANCE,URINE HAZY (CLEAR); BILIRUBIN,URINE 1+ (NEGATIVE); COLOR,URINE BROWN (YELLOW); NITRITE, URINE POSITIVE (NEGATIVE); PH,URINE 8.5 (5.0-9.0); UGLUCOSE NEGATIVE (NEGATIVE)
[2021-05-17 11:47] LABS: RBC,URINE TOO NUMEROUS TO COUN /HPF (0-5)
[2021-05-17 11:48] LABS: WBC,URINE 16-25 (MOD) /HPF (0-5)
[2021-05-17 11:49] LABS: YEAST,URINE Moderate /HPF (None Seen)
[2021-05-17 11:54] LABS: RBC,URINE TOO NUMEROUS TO COUN /HPF (0-5)
[2021-05-17 11:55] LABS: WBC,URINE 20-60 /HPF (0-5)
[2021-05-17 11:56] LABS: YEAST,URINE Rare /HPF (None Seen)
[2021-05-17 12:08] LABS: BLOOD, URINE 2+ (NEGATIVE); RBC,URINE 11-20 (MOD) /HPF (0-5)
[2021-05-17 12:14] LABS: LEUKOCYTE ESTERASE ,URINE 1+ (NEGATIVE)
[2021-05-17] MEDS ORDERED: MEROPENEM 1,000 MG in NACL 0.9% 100 ML IV ONE (12:20)
[2021-05-17] MEDS ORDERED: MEROPENEM 1,000 MG VIAL IV ONE (12:58)
[2021-05-17] MEDS ORDERED: FLUCONAZOLE 200 MG/NS PREMIX 100 ML IV SCH (13:20)
[2021-05-17] MEDS ORDERED: LORazepam 2 MG/ML VIAL IVP PRN (17:25)
[2021-05-17] MEDS ORDERED: MUPIROCIN CA NASAL 2% 1GM TUBE NS SCH (17:25)
[2021-05-17] MEDS ORDERED: ALBUTEROL HFA MDI 90 MCG/ACTUATION 8 GM INH PRN (17:25)
[2021-05-17] MEDS ORDERED: HYDROcodone/APAP 5/325 MG 1 TAB TAB PO PRN (17:25)
[2021-05-17] MEDS ORDERED: ONDANSETRON 4 MG TAB PO PRN (17:25)
[2021-05-17] MEDS ORDERED: traMADol 50 MG TAB PO PRN (17:25)
[2021-05-17] MEDS ORDERED: ALBUTEROL 0.083% 2.5 MG/3 ML NEBU INH PRN (17:35)
[2021-05-17] MEDS: DOCUSATE SODIUM 250 MG GELCAP PO SCH (20:17)
[2021-05-17] MEDS: traZODone 50 MG TAB PO SCH (20:18)
[2021-05-17] MEDS: PANTOPRAZOLE 40 MG TABEC PO SCH (20:18)
[2021-05-17] MEDS: SENNA 8.6 MG TAB PO SCH (20:19)
[2021-05-18] MEDS ORDERED: NON-FORMULARY ITEM (Omeprazole 40 MG) PO SCH (07:30)
[2021-05-18] MEDS ORDERED: ERYTHROMYCIN 0.5% OPTH OINT 1 GM TUBE BOTH EYES SCH (07:30)
[2021-05-18 08:25] LABS: BASOPHILS # (AUTO) 0.1 K/uL (0.00-0.22); BASOPHILS % (AUTO) 1.4 % (0.0-2.0); EOSINOPHILS # (AUTO) 0.5 K/uL (0-0.4); EOSINOPHILS % (AUTO) 8.2 % (0.0-4.0); HEMATOCRIT 36.9 % (36-52); HEMOGLOBIN 11.8 g/dL (12.0-18.0); LYMPHOCYTES # (AUTO) 0.9 K/uL (2.0-11.5); LYMPHOCYTES % (AUTO) 15.5 % (20.5-51.1); MEAN CORPUSCULAR HEMOGLOBIN 30 pg (27-31); MEAN CORPUSCULAR HGB CONC 32 g/dL (33-37); MEAN CORPUSCULAR VOLUME 92.9 fL (80-94); MONOCYTES # (AUTO) 0.4 K/uL (0.8-1.0); MONOCYTES % (AUTO) 7.2 % (1.7-9.3); NEUTROPHILS # (AUTO) 3.8 K/uL (1.8-7.7); NEUTROPHILS % (AUTO) 67.7 % (42.2-75.2); PLATELET COUNT (AUTO) 221 K/uL (140-450); RED BLOOD CELL COUNT(AUTO) 3.97 MIL/uL (4.20-6.10); RED CELL DISTRIBUTION WIDTH 18.2 % (11.6-13.7); WHITE BLOOD COUNT (AUTO) 5.6 K/uL (4.8-10.8)
[2021-05-18 08:44] LABS: ANION GAP 14.3 (8-16); CARBON DIOXIDE 19.5 mmol/L (21-32); CREATININE 0.9 mg/dL (0.6-1.3); POTASSIUM 3.8 mmol/L (3.5-5.1)
[2021-05-18] MEDS ORDERED: FATTY ACIDS PO SCH (09:00)
[2021-05-18] MEDS ORDERED: FISH OIL PO SCH (09:00)
[2021-05-18] MEDS ORDERED: OMEGA PO SCH (09:00)
[2021-05-18] MEDS ORDERED: NON-FORMULARY ITEM (Lactulose 30 ML) PO SCH (09:00)
[2021-05-18] MEDS ORDERED: POLYETHYLENE GLYCOL 17 GM/PKT PO SCH (09:00)
[2021-05-18] MEDS: ZINC SULF 220 MG CAP PO SCH (09:53)
[2021-05-18] MEDS: ASCORBIC ACID 500 MG TAB PO SCH (09:54)
[2021-05-18] MEDS: PANTOPRAZOLE 40 MG TABEC PO SCH ×2 (09:54→21:55)
[2021-05-18] MEDS: POLYETHYLENE GLYCOL 17 GM/PKT PO SCH (09:55)
[2021-05-18] MEDS: DOCUSATE SODIUM 250 MG GELCAP PO SCH ×3 (09:55→21:54)
[2021-05-18] MEDS: LACTULOSE 20 GM/30 ML UDC PO SCH (10:52)
[2021-05-18] MEDS ORDERED: PIPERACILLIN/TAZOBACTAM 3.375 GM VIAL IV ONE (20:57)
[2021-05-18] MEDS ORDERED: PIPERACILLIN/TAZOBACTAM 3.375 GM in DEXTROSE 5% 50 ML IV SCH (21:00)
[2021-05-18] MEDS: PIPERACILLIN/TAZOBACTAM 3.375 GM in DEXTROSE 5% 50 ML IV SCH (21:23)
[2021-05-18] MEDS: traZODone 50 MG TAB PO SCH (21:54)
[2021-05-18] MEDS: SENNA 8.6 MG TAB PO SCH (22:10)
[2021-05-19 00:20] VITALS: BP 112/64
[2021-05-19 04:00] VITALS: BP 105/69
[2021-05-19] MEDS: PIPERACILLIN/TAZOBACTAM 3.375 GM in DEXTROSE 5% 50 ML IV SCH ×3 (04:00→21:20)
[2021-05-19 07:03] LABS: BASOPHILS # (AUTO) 0.1 K/uL (0.00-0.22); BASOPHILS % (AUTO) 1.3 % (0.0-2.0); EOSINOPHILS # (AUTO) 0.6 K/uL (0-0.4); EOSINOPHILS % (AUTO) 7.4 % (0.0-4.0); HEMATOCRIT 37.1 % (36-52); HEMOGLOBIN 12.4 g/dL (12.0-18.0); LYMPHOCYTES # (AUTO) 1.5 K/uL (2.0-11.5); LYMPHOCYTES % (AUTO) 18.8 % (20.5-51.1); MEAN CORPUSCULAR HEMOGLOBIN 31 pg (27-31); MEAN CORPUSCULAR HGB CONC 33 g/dL (33-37); MEAN CORPUSCULAR VOLUME 92.4 fL (80-94); MONOCYTES # (AUTO) 0.6 K/uL (0.8-1.0); NEUTROPHILS # (AUTO) 5.1 K/uL (1.8-7.7); NEUTROPHILS % (AUTO) 64.5 % (42.2-75.2); PLATELET COUNT (AUTO) 266 K/uL (140-450); RED BLOOD CELL COUNT(AUTO) 4.01 MIL/uL (4.20-6.10); RED CELL DISTRIBUTION WIDTH 17.7 % (11.6-13.7); WHITE BLOOD COUNT (AUTO) 7.9 K/uL (4.8-10.8)
[2021-05-19] MEDS ORDERED: fentaNYL citrate 0.05 MG/ML VIAL ONE (07:16)
[2021-05-19 07:42] LABS: ALBUMIN 2.7 g/dL (3.4-5.0); ANION GAP 17.7 (8-16); CARBON DIOXIDE 21.1 mmol/L (21-32); POTASSIUM 4.8 mmol/L (3.5-5.1); TOTAL BILIRUBIN 0.5 mg/dL (0.0-1.0)
[2021-05-19] MEDS ORDERED: PIPERACILLIN/TAZOBACTAM 3.375 GM VIAL IV ONE (08:08)
[2021-05-19] MEDS ORDERED: PROPOFOL 200 MG/20 ML VIAL IV ONE (08:36)
[2021-05-19] MEDS ORDERED: MORPHINE SULFATE 4 MG/ML SYR ONE (08:57)
[2021-05-19] MEDS ORDERED: HYDROmorphone 1 MG/ML AMP IVP PRN (09:00)
[2021-05-19] MEDS: LACTATED RINGERS 1,000 ML IV SCH ×2 (09:00→17:20)
[2021-05-19] MEDS ORDERED: ONDANSETRON 4 MG/2 ML VIAL IVP PRN (09:00)
[2021-05-19] MEDS ORDERED: diphenhydrAMINE 50 MG/ML VIAL IVP PRN (09:00)
[2021-05-19] MEDS ORDERED: MEPERIDINE 25 MG/ML SYR IVP PRN (09:00)
[2021-05-19] MEDS ORDERED: HYDROmorphone PFS 2 MG/ML SYR ONE (09:04)
[2021-05-19] MEDS: PANTOPRAZOLE 40 MG TABEC PO SCH ×2 (09:50→21:22)
[2021-05-19] MEDS: DOCUSATE SODIUM 250 MG GELCAP PO SCH ×2 (09:50→21:23)
[2021-05-19] MEDS: LACTULOSE 20 GM/30 ML UDC PO SCH (09:50)
[2021-05-19] MEDS: ZINC SULF 220 MG CAP PO SCH (09:50)
[2021-05-19] MEDS: ASCORBIC ACID 500 MG TAB PO SCH (09:50)
[2021-05-19] MEDS: POLYETHYLENE GLYCOL 17 GM/PKT PO SCH (09:50)
[2021-05-19 16:00] VITALS: BP 111/67
[2021-05-19] MEDS: SENNA 8.6 MG TAB PO SCH (21:21)
[2021-05-19] MEDS: traZODone 50 MG TAB PO SCH (21:22)
[2021-05-20] VITALS: BP 120/70
[2021-05-20] MEDS: LACTATED RINGERS 1,000 ML IV SCH (02:25)
[2021-05-20] MEDS: PIPERACILLIN/TAZOBACTAM 3.375 GM in DEXTROSE 5% 50 ML IV SCH ×2 (04:59→12:26)
[2021-05-20 08:00] VITALS: BP 109/61
[2021-05-20] MEDS: ASCORBIC ACID 500 MG TAB PO SCH (09:34)
[2021-05-20] MEDS: ZINC SULF 220 MG CAP PO SCH (09:34)
[2021-05-20] MEDS: DOCUSATE SODIUM 250 MG GELCAP PO SCH (09:34)
[2021-05-20] MEDS: PANTOPRAZOLE 40 MG TABEC PO SCH (09:34)
[2021-05-20] MEDS: POLYETHYLENE GLYCOL 17 GM/PKT PO SCH (09:35)
[2021-05-20] MEDS: LACTULOSE 20 GM/30 ML UDC PO SCH (09:35)
== END 2021-05-20 19:18 | DRG 872 ==
LOC: MED 10:06 → MTU 13:41 → UNDOADMIN 05-18 17:04
PROVIDERS: ADMIT Preventive Medicine Preventive Medicine/Occupational Environmental Medicine; ATTEND Preventive Medicine Preventive Medicine/Occupational Environmental Medicine
PROC: 0TJB8ZZ Inspection of Bladder, Via Natural or Artificial Opening Endoscopic (ICD-10-PCS; 2021-05-19)
PROC: 0T9130Z Drainage of Left Kidney with Drainage Device, Percutaneous Approach (ICD-10-PCS; 2021-05-19)
PROC: 0T9030Z Drainage of Right Kidney with Drainage Device, Percutaneous Approach (ICD-10-PCS; 2021-05-19)
PROC: BT131ZZ Fluoroscopy of Bilateral Kidneys using Low Osmolar Contrast (ICD-10-PCS; principal; 2021-05-19 07:30)
DX: A41.9 Sepsis, unspecified organism (principal); J98.11 Atelectasis; N13.6 Pyonephrosis; Z16.21 Resistance to vancomycin; E44.0 Moderate protein-calorie malnutrition; G80.9 Cerebral palsy, unspecified; E83.52 Hypercalcemia; I10 Essential (primary) hypertension; J45.909 Unspecified asthma, uncomplicated; Z20.822 Contact with and (suspected) exposure to COVID-19; Z86.14 Personal history of Methicillin resistant Staphylococcus aureus infection; Z87.440 Personal history of urinary (tract) infections; Z87.442 Personal history of urinary calculi; Z88.1 Allergy status to other antibiotic agents; Z90.49 Acquired absence of other specified parts of digestive tract
CPT/HCPCS: 36415; 71045; 73562; 80048; 80053; 81001; 83690; 85025; 85651; 85730; 86140; 87040; 87081; 93005; C1758; C1769; J1170; J1450; J2185; J2270; J2543; J2704; J3010; J7030; J7060; Q0092; Q9967